=== PATIENT | female | born 1990 | race Two or more races ===

== ENCOUNTER 2020-10-03 14:24 | Outpatient (REF) | payer OTHER, SELFPAY ==
--- NOTE | ~2020-10-03 | XR_ITS ---
EXAMINATION: XR ANKLE, RIGHT CLINICAL INFORMATION: Screening right ankle and right foot prior orthopedic surgery. COMPARISON: Radiographs right ankle 03/17/2014 TECHNIQUE: AP, lateral, and mortise views of the right ankle. FINDINGS: The malleoli are intact and the ankle mortise is symmetric. There is no acute or healing fracture, dislocation, destructive process. Prior orthopedic hardware distal fibular shaft and medial malleolus are intact. No osteolysis. No periostitis. There is no visible ankle capsular effusion. The retrocalcaneal recess is preserved. Subtalar joint is unremarkable. There is posterior calcaneal spur. XR/XR ankle RT min 3V IMPRESSION: 1. No acute or healing fracture or dislocation or destructive process. 2. No interval arthropathy. Orthopedic hardware intact. 3. Small posterior calcaneal spur.
== END 2020-10-03 14:25 | disposition home or self-care (01) ==
LOC: HO.HMGCX 14:24
PROVIDERS: PCP Nurse Practitioner Family; Visit Provider Hospitalist
DX: M25.571 Pain in right ankle and joints of right foot (principal)
CPT/HCPCS: 73610

== ENCOUNTER 2020-10-19 08:09 | Outpatient (REF) | payer OTHER, SELFPAY ==
--- NOTE | ~2020-10-19 | XR_ITS ---
EXAMINATION: XR ANKLE, RIGHT CLINICAL INFORMATION: Right ankle pain. COMPARISON: 10/03/2020 and 03/17/2014. TECHNIQUE: AP, lateral, and mortise views of the right ankle. FINDINGS: There is no evidence of acute fracture or dislocation. Ankle mortise appears intact. There is edema seen within the lower leg, ankle, and foot. Plate and side screw seen in place for previous distal fibular fracture. Medial malleolar screw seen in place. Hardware is intact without evidence of loosening. Small calcaneal Achilles spur seen. XR/XR ankle RT min 3V IMPRESSION: No significant acute bony abnormality of the right ankle identified. Previous hardware from prior fractures.
== END 2020-10-19 08:10 | disposition home or self-care (01) ==
LOC: HO.HOSX 08:09
PROVIDERS: Visit Provider Physician Assistant
DX: M72.2 Plantar fascial fibromatosis (principal); M77.51 Other enthesopathy of right foot and ankle
CPT/HCPCS: 73610; 99202

== ENCOUNTER 2021-05-24 11:18 | Outpatient (REF) | payer OTHER, SELFPAY ==
--- NOTE | ~2021-05-24 | XR_ITS ---
EXAMINATION: XR FOOT, RIGHT XR FOOT, LEFT CLINICAL INFORMATION: M72.2 - Plantar fascial fibromatosis COMPARISON: Radiographs right ankle 10/19/2020 TECHNIQUE: Each foot is imaged in 3 views. There are total of 6 views. FINDINGS: Right: There is hardware in the distal fibula and medial malleolus. Hardware is intact. No osteolysis. The right foot shows no acute or healing fracture, dislocation, or destructive process. There is incidental corticated os tibiale externum adjacent to medial tarsal navicular. There is no focal joint narrowing or erosive changes. Mild hallux valgus present, approximately 20 degrees. There is small posterior calcaneal spur similar to prior radiographs. No visible plantar spur or mineralization along the plantar fascia. Left: There is no acute or healing fracture, dislocation, or destructive process. Bony mineralization is normal. There is no focal joint narrowing or erosive changes. There is borderline tiny posterior calcaneal spur. No plantar spur or mineralization along the plantar fascia. XR/XR foot LT 2V IMPRESSION: 1. Right: Posterior calcaneal spur. No plantar spurring or mineralization along plantar fascia. 2. Left: Borderline tiny posterior calcaneal spur. No plantar spurring or mineralization along plantar fascia.
--- NOTE | ~2021-05-24 | XR_ITS ---
EXAMINATION: XR FOOT, RIGHT XR FOOT, LEFT CLINICAL INFORMATION: M72.2 - Plantar fascial fibromatosis COMPARISON: Radiographs right ankle 10/19/2020 TECHNIQUE: Each foot is imaged in 3 views. There are total of 6 views. FINDINGS: Right: There is hardware in the distal fibula and medial malleolus. Hardware is intact. No osteolysis. The right foot shows no acute or healing fracture, dislocation, or destructive process. There is incidental corticated os tibiale externum adjacent to medial tarsal navicular. There is no focal joint narrowing or erosive changes. Mild hallux valgus present, approximately 20 degrees. There is small posterior calcaneal spur similar to prior radiographs. No visible plantar spur or mineralization along the plantar fascia. Left: There is no acute or healing fracture, dislocation, or destructive process. Bony mineralization is normal. There is no focal joint narrowing or erosive changes. There is borderline tiny posterior calcaneal spur. No plantar spur or mineralization along the plantar fascia. XR/XR foot RT 2V IMPRESSION: 1. Right: Posterior calcaneal spur. No plantar spurring or mineralization along plantar fascia. 2. Left: Borderline tiny posterior calcaneal spur. No plantar spurring or mineralization along plantar fascia.
[2021-05-24 14:06] LABS: MANUAL DIFF FLAG NO
[2021-05-24 14:12] LABS: Basophils Percent Auto 0.4 % (0-2); Eosinophils Absolute Auto 0.2 X10*3/uL (0.0-0.4); Eosinophils Percent Auto 1.9 % (0-4); Hematocrit 38.4 % (37.0-47.0); Hemoglobin 12.9 g/dl (12.0-16.0); Imm Gran Abs Auto 0.02 X10*3/uL (0.00-0.03); Imm Gran Pct Auto 0.2 % (0.0-0.4); Lymphocytes Absolute Auto 2.3 X10*3/uL (1.2-4.9); Mean Corpuscular HGB Conc 33.6 g/dl (31.0-35.0); Mean Corpuscular Hemoglobin 29.4 pg (27.0-33.0); Mean Corpuscular Volume 87.5 fL (80.0-98.0); Mean Platelet Volume 11.4 fL (9.4-12.3); Monocytes Absolute Auto 0.3 X10*3/uL (0.1-1.2); Monocytes Percent Auto 3.5 % (2-11); Neutrophils Absolute Auto 5.5 x10*3/uL (2.0-8.3); Platelet Count 316 X10*3/uL (160-400); Red Blood Count 4.39 X10*6/uL (4.20-5.50); Red Cell Distribution Width 12.7 % (11.0-16.0); White Blood Count 8.3 X10*3/uL (4.8-10.8)
[2021-05-24 14:29] LABS: Appearance Urine CLOUDY; Color Urine YELLOW; Glucose Urine UA NEG (NEG); Leukocyte Esterase Urine NEG (NEG); Nitrite Urine NEG (NEG); Specific Gravity - Urine 1.025 (1.005-1.025); Urine Blood NEG (NEG); Urine Ketones NEG (NEG); Urine Protein TRACE MG/DL (NEG-TRACE)
[2021-05-24 14:49] LABS: Alanine Aminotransferase 56 U/L (0-31); Albumin Level 4.6 g/dL (3.5-5.0); Alkaline Phosphatase 88 U/L (39-117); Anion Gap 14 (12-20); Aspartate Amino Transferase 25 U/L (5-31); Bilirubin Total 0.5 mg/dL (0.0-1.0); Blood Urea Nitrogen 14 mg/dL (9-16); Calcium 9.7 mg/dL (8.4-10.2); Carbon Dioxide 24 mmol/L (22-29); Chloride 106 mmol/L (96-108); Cholesterol 189 mg/dL; Estimated Glomerular Filt Rate > 60; Glucose Fasting 86 mg/dL (60-99); HDL Cholesterol 43 mg/dL; Iron 98 mcg/dL (30-160); LDL Cholesterol Calculated 126 mg/dl; Percent Iron Saturation 34 % (15-50); Potassium 4.2 mmol/L (3.3-5.1); Sodium 140 mmol/L (135-145); Total Iron Binding Capacity 291 mcg/dL (228-428); Total Protein 7.3 g/dL (6.5-8.0); Triglycerides 100 mg/dL; Unsaturated Iron Binding 193 ug/dL
[2021-05-24 14:57] LABS: Ferritin 58 ng/mL (10-122); TSH reflex Free T4 0.79 uIU/mL (0.32-4.0)
[2021-05-24 15:11] LABS: Folate 13.2 ng/mL (> or = 4.0); Vitamin B12 1055 pg/mL (200-900)
== END 2021-05-24 11:19 | disposition home or self-care (01) ==
LOC: HO.HMGCLDS 11:18
PROVIDERS: PCP Nurse Practitioner Family; Visit Provider Nurse Practitioner Family
DX: M72.2 Plantar fascial fibromatosis (principal); L65.9 Nonscarring hair loss, unspecified
CPT/HCPCS: 36415; 73620; 80053; 80061; 81003; 82607; 82728; 82746; 83540; 84443; 85025

== ENCOUNTER 2022-06-13 10:41 | Outpatient (REF) | payer OTHER, SELFPAY ==
[2022-06-13 13:57] LABS: MANUAL DIFF FLAG NO
[2022-06-13 14:01] LABS: Basophils Percent Auto 0.4 % (0-2); Eosinophils Absolute Auto 0.1 X10*3/uL (0.0-0.4); Eosinophils Percent Auto 0.9 % (0-4); Imm Gran Abs Auto 0.03 X10*3/uL (0.00-0.03); Imm Gran Pct Auto 0.3 % (0.0-0.4); Lymphocytes Absolute Auto 2.4 X10*3/uL (1.2-4.9); Lymphocytes Percent Auto 23.8 % (20-40); Mean Corpuscular HGB Conc 32.5 g/dl (31.0-35.0); Mean Corpuscular Hemoglobin 28.4 pg (27.0-33.0); Mean Corpuscular Volume 87.3 fL (80.0-98.0); Mean Platelet Volume 11.1 fL (9.4-12.3); Monocytes Absolute Auto 0.4 X10*3/uL (0.1-1.2); Monocytes Percent Auto 3.5 % (2-11); Neutrophils Absolute Auto 7.2 x10*3/uL (2.0-8.3); Neutrophils Percent Auto 71.1 % (45-73); Platelet Count 332 X10*3/uL (160-400); Red Blood Count 4.58 X10*6/uL (4.20-5.50); Red Cell Distribution Width 12.8 % (11.0-16.0); White Blood Count 10.2 X10*3/uL (4.8-10.8)
[2022-06-13 14:36] LABS: Syphilis Screen Nonreactive (Nonreactive)
[2022-06-13 14:37] LABS: Alanine Aminotransferase 36 U/L (0-31); Albumin Level 4.6 g/dL (3.5-5.0); Alkaline Phosphatase 87 U/L (39-117); Anion Gap 11 (12-20); Aspartate Amino Transferase 17 U/L (5-31); Bilirubin Total 0.6 mg/dL (0.0-1.0); Blood Urea Nitrogen 11 mg/dL (9-16); Calcium 9.5 mg/dL (8.4-10.2); Carbon Dioxide 26 mmol/L (22-29); Chloride 105 mmol/L (96-108); Cholesterol 189 mg/dL; Estimated Glomerular Filt Rate > 60; Ferritin 33 ng/mL (10-122); Glucose Fasting 87 mg/dL (60-99); HDL Cholesterol 48 mg/dL; Iron 90 mcg/dL (30-160); LDL Cholesterol Calculated 124 mg/dl; Percent Iron Saturation 31 % (15-50); Potassium 3.8 mmol/L (3.3-5.1); Sodium 138 mmol/L (135-145); TSH reflex Free T4 1.03 uIU/mL (0.32-4.0); Total Iron Binding Capacity 288 mcg/dL (228-428); Total Protein 7.5 g/dL (6.5-8.0); Triglycerides 86 mg/dL; Unsaturated Iron Binding 198 ug/dL
[2022-06-13 14:54] LABS: Folate 13.5 ng/mL (> or = 4.0); Vitamin B12 815 pg/mL (200-900)
[2022-06-13 15:48] LABS: HIV AB/AG Nonreactive (Nonreactive); HIV Num 1 0.05 S/CO (0.00-0.99)
[2022-06-13 17:30] LABS: CT PCR NOT DETECTED (Not Detect.); NG PCR NOT DETECTED (Not Detect.)
[2022-06-15 09:53] LABS: HBS Num1 > 1000.00 mIU/mL (0-7.99); HBc Num1 0.14 S/CO (0.00-0.79); HBsAGNum1 0.34 S/CO (0.00-0.99); Hepatitis B Core Antibody Nonreactive (Nonreactive); Hepatitis B Surface Antigen Negative (Negative); ~HepC Num1 0.09 S/CO (0.00-0.79); ~Hepatitis B Surface Antibody REACTIVE (Nonreactive)
[2022-06-15 09:56] LABS: Hepatitis C Ab Exposure Source NonReactive (Nonreactive)
== END 2022-06-13 10:42 | disposition home or self-care (01) ==
LOC: HO.HMGCLDS 10:41
PROVIDERS: PCP Nurse Practitioner Family; Visit Provider Nurse Practitioner Family
DX: Z00.00 Encounter for general adult medical examination without abnormal findings (principal); Z11.3 Encounter for screening for infections with a predominantly sexual mode of transmission; R42 Dizziness and giddiness; R30.0 Dysuria; R53.83 Other fatigue
CPT/HCPCS: 36415; 80053; 80061; 82607; 82728; 82746; 83540; 84443; 85025; 86780; 86803; 87491; 87591

== ENCOUNTER 2022-07-12 21:45 | Emergency (ER) | payer OTHER, SELFPAY ==
--- NOTE | ~2022-07-12 | XR_ITS ---
EXAMINATION: XR ANKLE, LEFT CLINICAL INFORMATION: Injury COMPARISON: 05/24/2021 TECHNIQUE: AP, lateral, and mortise views of the left ankle. FINDINGS: No fracture or dislocation. Ankle mortise is congruent. No ankle joint effusion. Circumferential soft tissue swelling. XR/XR ankle LT min 3V IMPRESSION: Soft tissue swelling without acute fracture or malalignment.
[2022-07-12 22:12] VITALS: BP 156/99; PULSE 91; RESP 18; TEMP 36.3; O2SAT 96; BMI 42.7
--- NOTE | 2022-07-12 22:43 | ED_ITS ---
HPI - Extremity Injury (Lower) General Chief Complaint: Extremity Injury, Lower Stated Complaint: Left ankle injury Time Seen by Provider: 07/12/22 22:41 Source: patient Mode of arrival: ambulatory Limitations: no limitations History of Present Illness HPI Narrative: While coming down the stairs patient twisted her left ankle yesterday since then complaining of pain specially on lateral malleolar increases on ambulation no other injuries Related Data Previous Rx's Medication Instructions Recorded albuterol sulfate 90 mcg/actuation 2 puff inhalation Q4-6H PRN 05/24/21 aerosol inhaler shortness of breath or wheezing #18 grams albuterol sulfate 2.5 mg/3 mL 2.5 mg (3 mL) inhalation QID PRN 06/22/21 (0.083 %) solution for nebulization shortness of breath or wheezing 90 days #180 mL cephalexin 500 mg capsule 500 mg PO TID 10 days #30 caps 05/02/22 doxycycline monohydrate 100 mg 100 mg PO BID 14 days #28 caps 06/13/22 capsule fluconazole 150 mg tablet 150 mg PO Q3D 2 doses #2 tabs 06/13/22 (Diflucan) ibuprofen 600 mg tablet 600 mg PO Q6H PRN fever or pain 07/12/22 #30 tabs Allergies Allergy/AdvReac Type Severity Reaction Status Date / Time mushroom Allergy Unknown RASH Verified 06/13/22 09:51 mushroom Allergy Unknown rash Uncoded 06/13/22 09:51 Mushrooms AdvReac Severe Swelling Uncoded 06/13/22 09:51 Review of Systems Review of Systems: Yes all other systems are reviewed and are negative PMFSH Past Medical History Medical History Migraine with aura Plantar fasciitis, bilateral Social History Social History Housing: House Patient Tobacco Use Status: Never used Tobacco e-Cigarette/Vaping Use: Never Used Second Hand Smoke Exposure: No Advance Directives: No Advance Directives Information Provided: No service: No Current occupational status: employed 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 Oriented X3. No acute distress. ENT: Pharynx normal. Oral Mucosa moist atraumatic normocephalic Neck: Normal inspection. Neck supple. No tenderness CVS: Normal heart rate and rhythm. Pulses normal. Respiratory: No respiratory distress. Equal air entry bilateral, no wheezing/rales/rhonchi Skin: Skin warm and dry. Normal skin color. Normal skin turgor. Extremities: No lower extremity edema. Left ankle: Soft tissue swelling lateral malleolus no bony deformity good range of movement Neuro: Oriented X 3. Extrem: Ankle/foot/toe images: 1. Soft tissue swelling with tenderness no deformity neurovascular intact Medical Decision Making Medical Decision Making MDM Narrative: X-ray negative for fracture patient was given an ankle Aircast and crutches ibuprofen for the pain Discharge Plan Discharge Clinical Impression: Left ankle sprain Patient Disposition: Home, Self-Care Instructions: Ankle Sprain (ED) Additional Instructions: Use crutches for ambulation, wear splint for support Ibuprofen for pain Prescriptions: New ibuprofen 600 mg tablet 600 mg PO Q6H PRN (Reason: fever or pain) Qty: 30 0RF No Action albuterol sulfate 2.5 mg /3 mL (0.083 %) solution for nebulization 2.5 mg inhalation QID PRN (Reason: shortness of breath or wheezing) 90 Days Qty: 180 0RF albuterol sulfate 90 mcg/actuation HFA aerosol inhaler 2 puff inhalation Q4-6H PRN (Reason: shortness of breath or wheezing) Qty: 18 0RF cephalexin 500 mg capsule 500 mg PO TID 10 Days Qty: 30 0RF doxycycline monohydrate 100 mg capsule 100 mg PO BID 14 Days Qty: 28 0RF fluconazole [Diflucan] 150 mg tablet 150 mg PO Q3D Qty: 2 2RF Stand Alone Forms: Work/School Release
[2022-07-12] MEDS: Ibuprofen 600 MG TABLET PO (23:05)
== END 2022-07-12 23:07 | disposition home or self-care (01) ==
PROVIDERS: Emergency Provider Internal Medicine; PCP Nurse Practitioner Family
DX: M25.572 Pain in left ankle and joints of left foot (principal); Z79.899 Other long term (current) drug therapy
CPT/HCPCS: 29515; 73610; 99283

== ENCOUNTER → 2022-09-12 15:20 | Outpatient (BNVA) | payer OTHER, SELFPAY | PROVIDERS: PCP Nurse Practitioner Family; Visit Provider Physician Assistant Surgical ==

== ENCOUNTER → 2022-09-14 08:18 | Outpatient (BNVA) | payer OTHER, SELFPAY | PROVIDERS: PCP Nurse Practitioner Family; Visit Provider Surgery | DX: E66.01 Morbid (severe) obesity due to excess calories (principal); I10 Essential (primary) hypertension; G43.109 Migraine with aura, not intractable, without status migrainosus; M72.2 Plantar fascial fibromatosis; J45.21 Mild intermittent asthma with (acute) exacerbation; Z68.41 Body mass index [BMI] 40.0-44.9, adult | CPT/HCPCS: Q3014 ==

== ENCOUNTER 2022-09-24 09:12 | Outpatient (REF) | payer OTHER, SELFPAY ==
--- NOTE | ~2022-09-24 | XR_ITS ---
EXAMINATION: XR CHEST 2 VIEWS CLINICAL INFORMATION: Morbid obesity. COMPARISON: None. TECHNIQUE: Frontal and lateral views of the chest were obtained. FINDINGS: The heart, great vessels, pulmonary vasculature and mediastinum are normal. The lungs show no focal infiltrate, effusion or pneumothorax. There is no acute osseous abnormality. XR/XR chest 2V IMPRESSION: No active cardiopulmonary disease.
[2022-09-24 09:32] LABS: MANUAL DIFF FLAG NO
--- NOTE | 2022-09-24 09:34 | ECG_ITS ---
Test Reason : e66.01 Blood Pressure : / mmHG Vent. Rate : 082 BPM Atrial Rate : 082 BPM P-R Int : 168 ms QRS Dur : 088 ms QT Int : 390 ms P-R-T Axes : 042 031 007 degrees QTc Int : 455 ms Normal sinus rhythm Normal ECG When compared with ECG of 16-MAR-2002 09:22, No significant changes seen Referred By: Johnathon Bower Electronically Signed By:Clemente Riojas
[2022-09-24 09:59] LABS: Basophils Percent Auto 0.4 % (0-2); Eosinophils Absolute Auto 0.1 X10*3/uL (0.0-0.4); Eosinophils Percent Auto 1.3 % (0-4); Hematocrit 37.6 % (37.0-47.0); Hemoglobin 12.7 g/dl (12.0-16.0); Imm Gran Abs Auto 0.02 X10*3/uL (0.00-0.03); Imm Gran Pct Auto 0.3 % (0.0-0.4); Lymphocytes Percent Auto 29.5 % (20-40); Mean Corpuscular HGB Conc 33.8 g/dl (31.0-35.0); Mean Corpuscular Volume 85.8 fL (80.0-98.0); Monocytes Absolute Auto 0.2 X10*3/uL (0.1-1.2); Monocytes Percent Auto 3.5 % (2-11); Neutrophils Absolute Auto 4.4 x10*3/uL (2.0-8.3); Platelet Count 316 X10*3/uL (160-400); Red Blood Count 4.38 X10*6/uL (4.20-5.50); Red Cell Distribution Width 12.8 % (11.0-16.0); White Blood Count 6.8 X10*3/uL (4.8-10.8)
[2022-09-24 10:08] LABS: Estimated Average Glucose 108 mg/dL; Hemoglobin A1c % 5.4 %
[2022-09-24 10:36] LABS: Alanine Aminotransferase 44 U/L (0-31); Albumin Level 4.6 g/dL (3.5-5.0); Alkaline Phosphatase 76 U/L (39-117); Anion Gap 13 (12-20); Aspartate Amino Transferase 19 U/L (5-31); Bilirubin Total 0.7 mg/dL (0.0-1.0); Blood Urea Nitrogen 13 mg/dL (9-16); C Reactive Protein 0.22 mg/dL (< or = 0.50); Calcium 9.6 mg/dL (8.4-10.2); Carbon Dioxide 24 mmol/L (22-29); Chloride 107 mmol/L (96-108); Cholesterol 172 mg/dL; Estimated Glomerular Filt Rate > 60; Glucose Random 92 mg/dL (60-115); HDL Cholesterol 42 mg/dL; Iron 75 mcg/dL (30-160); LDL Cholesterol Calculated 119 mg/dl; Percent Iron Saturation 28 % (15-50); Potassium 3.7 mmol/L (3.3-5.1); Sodium 140 mmol/L (135-145); Total Iron Binding Capacity 269 mcg/dL (228-428); Total Protein 7.5 g/dL (6.5-8.0); Triglycerides 56 mg/dL; Unsaturated Iron Binding 194 ug/dL
[2022-09-24 11:05] LABS: Ferritin 50 ng/mL (10-122); Folate 12.5 ng/mL (> or = 4.0); Insulin 10 uU/mL (2-29); TSH reflex Free T4 1.56 uIU/mL (0.32-4.0); Vitamin B12 1164 pg/mL (200-900); Vitamin D 25-OH Total 10.5 ng/mL (>30)
[2022-09-26 13:23] LABS: Calcium (PTHI) 9.8 mg/dL (8.6-10.2); PTHI 37 pg/mL (16-77)
[2022-09-27 06:13] LABS: Zinc 64 mcg/dL (60-130)
[2022-09-29 17:13] LABS: Vitamin A 42 mcg/dL (38-98)
[2022-10-04 17:14] LABS: Vitamin B1 <6 nmol/L (8-30)
== END 2022-09-24 09:13 | disposition home or self-care (01) ==
LOC: HO.LAB 09:12
PROVIDERS: PCP Nurse Practitioner Family; Visit Provider Surgery
DX: E66.01 Morbid (severe) obesity due to excess calories (principal); J45.901 Unspecified asthma with (acute) exacerbation; I10 Essential (primary) hypertension
CPT/HCPCS: 36415; 71046; 80053; 80061; 82306; 82607; 82728; 82746; 83036; 83525; 83540; 83970; 84425; 84443; 84590; 84630; 85025; 86140; 93005; 99211

== ENCOUNTER 2022-09-24 10:37 | Outpatient (REF) | payer OTHER, SELFPAY ==
[2022-09-27 11:58] LABS: H Pylori Breath Test Negative (Negative)
== END 2022-09-24 10:38 | disposition home or self-care (01) ==
LOC: HO.LNP 10:37
PROVIDERS: Visit Provider Surgery
DX: E66.01 Morbid (severe) obesity due to excess calories (principal); J45.901 Unspecified asthma with (acute) exacerbation; I10 Essential (primary) hypertension
CPT/HCPCS: 83013

== ENCOUNTER → 2022-10-02 12:30 | Outpatient (BNVA) | payer OTHER, SELFPAY | PROVIDERS: PCP Nurse Practitioner Family; Visit Provider Counselor Mental Health ==

== ENCOUNTER → 2022-10-04 15:16 | Outpatient (BNVA) | payer OTHER, SELFPAY | PROVIDERS: PCP Nurse Practitioner Family; Visit Provider Dietitian, Registered | DX: E66.01 Morbid (severe) obesity due to excess calories (principal); Z71.3 Dietary counseling and surveillance | CPT/HCPCS: 97802 ==

== ENCOUNTER → 2022-10-12 08:01 | Outpatient (BNVA) | payer OTHER, SELFPAY | PROVIDERS: PCP Nurse Practitioner Family; Visit Provider Surgery | DX: E66.01 Morbid (severe) obesity due to excess calories (principal); Z68.41 Body mass index [BMI] 40.0-44.9, adult | CPT/HCPCS: Q3014 ==

== ENCOUNTER → 2022-11-01 11:47 | Outpatient (BNVA) | payer OTHER, SELFPAY | PROVIDERS: PCP Nurse Practitioner Family; Visit Provider Dietitian, Registered | DX: E66.01 Morbid (severe) obesity due to excess calories (principal); Z71.3 Dietary counseling and surveillance | CPT/HCPCS: 97803 ==

== ENCOUNTER → 2022-11-07 08:08 | Outpatient (BNVA) | payer OTHER, SELFPAY | PROVIDERS: PCP Nurse Practitioner Family; Visit Provider Surgery | DX: E66.01 Morbid (severe) obesity due to excess calories (principal); Z68.41 Body mass index [BMI] 40.0-44.9, adult | CPT/HCPCS: Q3014 ==

== ENCOUNTER → 2022-12-07 08:58 | Outpatient (BNVA) | payer OTHER, SELFPAY | PROVIDERS: PCP Nurse Practitioner Family; Visit Provider Surgery | DX: E66.01 Morbid (severe) obesity due to excess calories (principal); Z68.41 Body mass index [BMI] 40.0-44.9, adult | CPT/HCPCS: Q3014 ==

== ENCOUNTER 2022-12-12 07:17 | Outpatient (REF) | payer OTHER, SELFPAY ==
--- NOTE | ~2022-12-12 | FL_ITS ---
EXAMINATION: XR FLUOROSCOPY UPPER GI WITH AIR CLINICAL INFORMATION: Obesity COMPARISON: None available. TECHNIQUE: Upper GI was performed using thin and thick barium and effervescent granules. FINDINGS: Esophageal motility is normal. There is gastroesophageal reflux. No hernia. The stomach and duodenum are normal. No fold thickening, mass, ulcer or stricture. FLUOROSCOPY TIME: 0.2 minutes DOSE AREA PRODUCT: 3 ervin per centimeter squared. Total dose 12 mgy. 17 saved fluoroscopic images. FL/FL upper GI w air IMPRESSION: Gastroesophageal reflux otherwise unremarkable examination.
--- NOTE | ~2022-12-12 | US_ITS ---
EXAMINATION: US COMPLETE ABDOMEN WITH LIVER ELASTOGRAPHY CLINICAL INFORMATION: Obesity COMPARISON: Previous ultrasound August [address] of the abdomen and pelvis August 2016 TECHNIQUE: Real-time imaging of the abdominal viscera. Noninvasive ultrasound liver fibrosis assessment is performed using Louis ElastPQ point quantification shear wave elastography (2D-SWE) with a C5-2 MHz transducer. Multiple elastography samples are obtained. FINDINGS: PANCREAS: Normal. ABDOMINAL AORTA: The proximal, middle, and distal aortic segments are normal in caliber. INFERIOR VENA CAVA: Visualized portions are normal. LIVER: The liver is slightly enlarged. Liver echotexture is increased probably representing fatty infiltration. The liver is normal in contour. No focal liver lesion. No biliary duct dilatation. The right lobe measures 21 cm in length. The left lobe measures 11 cm in length. Portal flow is normal/hepatopedal Shear wave liver elastography median stiffness is 1.4 m/s (reference: normal median stiffness is 1.3 m/s or less). IQR/median stiffness to assess sampling precision is 0.15 (reference: good quality data set is IQR/median stiffness of 0.15 or less). GALLBLADDER: Normal. The gallbladder is physiologically distended without evidence of stones, sludge, polyps, wall thickening or pericholecystic fluid. COMMON BILE DUCT: Normal in caliber measuring 0.4 cm in diameter. RIGHT KIDNEY: Normal. No hydronephrosis. No renal calculi or focal parenchymal lesions. The kidney measures 11.4 cm in maximum dimension. LEFT KIDNEY: 3 x 4 mm echogenic focus in the upper pole. This is new from previous ultrasound and no corresponding abnormality seen on previous CT. This is of uncertain etiology. No hydronephrosis. The kidney measures 12.3 cm in maximum dimension. SPLEEN: Normal. The spleen measures 12.5 cm in maximum dimension. FREE FLUID: None. US/US abdomen comp w elastography IMPRESSION: 1. Impression: Enlarged echogenic liver probably representing fatty infiltration. 2. Liver elastography: Adequate liver sampling. In the absence of other known clinical signs, rules out compensated advanced chronic liver disease. REFERENCE: Society of Radiologists in Ultrasound Liver Stiffness Thresholds (2020): LIVER STIFFNESS THRESHOLDS: *Liver Stiffness equal or less than 1.3 m/s: High probability of being normal. *Liver Stiffness less than 1.7 m/s: In the absence of other known clinical signs, rules out compensated advanced chronic liver disease. *Liver Stiffness 1.7-2.1 m/s: Suggestive of compensated advanced chronic liver disease but need further test for confirmation. *Liver Stiffness over 2.1 m/s: Rules in compensated advanced chronic liver disease. *Liver Stiffness over 2.4 m/s: Suggestive of clinically significant portal hypertension. QUALITY OF DATA SET: *IQR/Median value equal or less than 0.15 implies a quality data set. *IQR/Median value over 0.15 implies a poor quality data set. SIGNIFICANT CHANGE FROM PRIOR EXAM: Significant change if liver stiffness measurement is 10% or greater from prior exam. OTHER CONSIDERATIONS: The stage of liver fibrosis may be overestimated in the setting of acute hepatitis, liver inflammation, elevated liver function tests, hepatic vascular congestion, obstructive cholestasis, non-fasting state, and infiltrative diseases such as amyloidosis and lymphoma. In some patients with NAFLD, the liver stiffness thresholds for compensated advanced chronic liver disease may be lower. In causes other than viral hepatitis and NAFLD, liver stiffness thresholds are not well established.
== END 2022-12-12 07:18 | disposition home or self-care (01) ==
LOC: HO.US 07:17
PROVIDERS: PCP Nurse Practitioner Family; Visit Provider Surgery
DX: E66.01 Morbid (severe) obesity due to excess calories (principal); J45.901 Unspecified asthma with (acute) exacerbation; I10 Essential (primary) hypertension
CPT/HCPCS: 74246; 76705; 76981

== ENCOUNTER → 2022-12-14 13:00 | Outpatient (BNVA) | payer OTHER, SELFPAY | PROVIDERS: PCP Nurse Practitioner Family; Visit Provider Surgery | DX: E66.01 Morbid (severe) obesity due to excess calories (principal); Z68.41 Body mass index [BMI] 40.0-44.9, adult | CPT/HCPCS: Q3014 ==

== ENCOUNTER → 2022-12-19 12:39 | Outpatient (BNVA) | payer OTHER, SELFPAY | PROVIDERS: PCP Nurse Practitioner Family; Visit Provider Surgery ==

== ENCOUNTER 2022-12-21 08:04 | Inpatient (IN) | payer OTHER, SELFPAY ==
[2022-12-15 09:00] LABS: MANUAL DIFF FLAG NO
[2022-12-15 09:33] LABS: Basophils Percent Auto 0.3 % (0-2); Eosinophils Absolute Auto 0.1 X10*3/uL (0.0-0.4); Eosinophils Percent Auto 1.1 % (0-4); Hematocrit 38.1 % (37.0-47.0); Hemoglobin 12.9 g/dl (12.0-16.0); Imm Gran Abs Auto 0.02 X10*3/uL (0.00-0.03); Imm Gran Pct Auto 0.2 % (0.0-0.4); Mean Corpuscular HGB Conc 33.9 g/dl (31.0-35.0); Mean Corpuscular Hemoglobin 29.5 pg (27.0-33.0); Mean Platelet Volume 11.2 fL (9.4-12.3); Monocytes Absolute Auto 0.3 X10*3/uL (0.1-1.2); Monocytes Percent Auto 3.8 % (2-11); Neutrophils Absolute Auto 6.3 x10*3/uL (2.0-8.3); Neutrophils Percent Auto 71.6 % (45-73); Platelet Count 280 X10*3/uL (160-400); Red Blood Count 4.38 X10*6/uL (4.20-5.50); Red Cell Distribution Width 12.7 % (11.0-16.0); White Blood Count 8.8 X10*3/uL (4.8-10.8)
[2022-12-15 09:42] LABS: INTERNATIONAL NORM RATIO 1.2 (0.9-1.1)
[2022-12-15 09:43] LABS: Estimated Average Glucose 103 mg/dL; Hemoglobin A1c % 5.2 %
[2022-12-15 09:44] LABS: Partial Thromboplastin Time 28.8 SEC (26.0-36.4)
[2022-12-15 10:18] LABS: Alanine Aminotransferase 24 U/L (0-31); Albumin Level 4.3 g/dL (3.5-5.0); Alkaline Phosphatase 67 U/L (39-117); Anion Gap 11 (12-20); Aspartate Amino Transferase 15 U/L (5-31); Bilirubin Total 0.7 mg/dL (0.0-1.0); Blood Urea Nitrogen 11 mg/dL (9-16); C Reactive Protein 0.23 mg/dL (< or = 0.50); Calcium 9.6 mg/dL (8.4-10.2); Carbon Dioxide 25 mmol/L (22-29); Chloride 107 mmol/L (96-108); Cholesterol 164 mg/dL; Estimated Glomerular Filt Rate > 60; Glucose Random 100 mg/dL (60-115); HDL Cholesterol 41 mg/dL; LDL Cholesterol Calculated 113 mg/dl; Potassium 3.7 mmol/L (3.3-5.1); Sodium 139 mmol/L (135-145); Total Protein 7.6 g/dL (6.5-8.0); Triglycerides 53 mg/dL
[2022-12-15 10:39] LABS: TSH reflex Free T4 1.04 uIU/mL (0.32-4.0)
[2022-12-15 10:55] LABS: Insulin 12 uU/mL (2-29)
--- NOTE | 2022-12-15 20:24 | MHC.SHP ---
Pre-Procedural Eval Section A Date of Service: 12/15/22 The patient is an INPATIENT: Yes The History & Physical has been completed within 30 days and I have reviewed it.: Yes Section B Chief Complaint: obesity Relevant Family History (Specify if Yes): No Relevant Social History: None Present Medications: None Medical History: No relevant PMH History of Previous Operations: No relevant previous surgery Allergies: Allergies Allergy/AdvReac Type Severity Reaction Status Date / Time mushroom Allergy Unknown RASH Verified 12/14/22 22:31 mushroom Allergy Unknown rash Uncoded 12/14/22 22:31 Mushrooms AdvReac Severe Swelling Uncoded 12/14/22 22:31 Review of Systems Sugical H&P ROS: Negative: Constitution, Cardiovascular, Respiratory, Neurological, Psychiatric, Hem-Onc, Allergic/Immunologic, Gastrointestinal, Genitourinary, Musculoskeletal, Integumentary, Endocrine and Eyes/Ears/Nose/Throat Exam Surgical H&P Exam: Normal: HEENT, Normal: Heart, Normal: Lungs, Normal: Extremities, Normal: Abdomen, Normal: Skin and Normal: Neurological Plan Diagnosis/Plan: Unchanged I have reviewed the history and physical and performed a pertinent physical examination on my patient. No changes have occurred unless specified. Time Spent With Patient Time: Total time managing care of this patient today ____ minutes.
[2022-12-18 11:00] VITALS: BMI 39.4
--- NOTE | 2022-12-20 09:17 | P.CONAN_ITS ---
HPI - Anesthesia Eval Consult details Narrative: 32yo F for Gastrectomy Sleeve,EGD,Poss Diaphragmatic Hernia,Poss Ventral Hernia,Poss Open, PMFSH Active Problems Active Problems: All Active Problems (Updated 12/18/22 @ 11:00 by Andreina Barry RN) Asthma exacerbation (Acute) Acute frontal sinusitis (Acute) Encounter for pre-employment examination (Acute) Right ankle pain (Acute) Plantar fasciitis of right foot (Acute) Tendonitis of ankle, right (Acute) Hair loss (Acute) HTN (hypertension) (Acute) Obesity (Acute) Physical exam (Acute) Dizziness (Acute) Dysuria (Acute) STI (sexually transmitted infection) (Acute) Vitamin D deficiency (Acute) Mood disorder due to known physiological condition, unspecified (Acute) Vitamin B1 deficiency (Acute) Hearing loss (Acute) Morbid obesity (Acute) Migraine with aura (Acute) Plantar fasciitis, bilateral (Acute) Past Medical History Medical History (Updated 12/18/22 @ 11:00 by Andreina Barry RN) Arthritis Asthma HTN (hypertension) Migraine with aura Morbid obesity Plantar fasciitis, bilateral Family History Family History (Updated 09/12/22 @ 15:30 by MIRANDA Mack) Mother Stroke Hypertension Lupus Father Heart disease Brother Cancer Son No problems noted. Son No problems noted. Son No problems noted. Surgical History Surgical History (Updated 12/18/22 @ 10:39 by Andreina Barry RN) H/O colonoscopy History of ear surgery History of surgery on lower extremity Hx of section Social History Social History (Updated 09/12/22 @ 15:28 by MIRANDA Mack) Housing: House Are you a primary wound care physician to a significant other at home: Yes (minor children) Do you presently have visiting nurse or other home services: No Alcohol intake: never Patient Tobacco Use Status: Current someday Tobacco user Tobacco use type: Smokeless Tobacco Years Smoked: currently vaping-advised to refrain pre-op e-Cigarette/Vaping Use: Never Used Second Hand Smoke Exposure: No Use of substances other than those prescribed or required for medical reasons: No Have you been hit, kicked, punched, or otherwise hurt by someone within the past year? 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8 Eos % (Auto) 1.1 Baso % (Auto) 0.3 Lymph # (Auto) 2.0 [place] # (Auto) 0.3 Eos # (Auto) 0.1 Baso # (Auto) 0.0 Abs Immat Gran (auto) 0.02 Absolute Neuts (auto) 6.3 Absolute Nucleated RBC 0.000 Nucleated RBC % (auto) 0.0 PT 14.0 H INR 1.2 H APTT 28.8 Sodium 139 Potassium 3.7 Chloride 107 Carbon Dioxide 25 Anion Gap 11 L BUN 11 Creatinine 0.65 Estim Creat Clear Calc TNP Estimated GFR > 60 Random Glucose 100 Estimat Average Glucose Hemoglobin A1c % Insulin Level 12 Calcium 9.6 Total Bilirubin 0.7 AST 15 ALT 24 Alkaline Phosphatase 67 C-Reactive Protein 0.23 Total Protein 7.6 Albumin 4.3 Triglycerides 53 Cholesterol 164 LDL Cholesterol, Calc 113 HDL Cholesterol 41 TSH 1.04 Blood Type Antibody Screen 12/15/22 12/15/22 08:58 09:00 WBC RBC Hgb Hct MCV MCH MCHC RDW Plt Count MPV Immature Gran % (Auto) Neut % (Auto) Lymph % (Auto) [place] % (Auto) Eos % (Auto) Baso % (Auto) Lymph # (Auto) [place] # (Auto) Eos # (Auto) Baso # (Auto) Abs Immat Gran (auto) Absolute Neuts (auto) Absolute Nucleated RBC Nucleated RBC % (auto) PT INR APTT Sodium Potassium Chloride Carbon Dioxide Anion Gap BUN Creatinine Estim Creat Clear Calc Estimated GFR Random Glucose Estimat Average Glucose 103 Hemoglobin A1c % 5.2 Insulin Level Calcium Total Bilirubin AST ALT Alkaline Phosphatase C-Reactive Protein Total Protein Albumin Triglycerides Cholesterol LDL Cholesterol, Calc HDL Cholesterol TSH Blood Type B Positive Antibody Screen NEGATIVE Narrative Narrative: EKG 09/2022 Vent. Rate : 082 BPM ? ? Atrial Rate : 082 BPM ?? P-R Int : 168 ms? QRS Dur : 088 ms ? ? QT Int : 390 ms ? ? ? P-R-T Axes : 042 031 007 degrees ?? QTc Int : 455 ms ? Normal sinus rhythm Normal ECG When compared with ECG of 16-MAR-2002 09:22, No significant changes seen ? Assessment and Plan Assessment Anesthesia Assessment: Chart Reviewed
[2022-12-20 09:36] LABS: COVID-19 Test Negative (Negative); IDNOW Serial# 6674DD1D
[2022-12-21] VITALS (12 sets, daily range): BP systolic 123–175; BP diastolic 73–99; PULSE 81–102; RESP 17–22; TEMP 36.1–36.9; O2SAT 96–100; BMI 40.9
--- NOTE | 2022-12-21 08:30 | PHA.MEDREC ---
Pharmacy Consult ? Medication Reconciliation Pharmacy has completed the medication reconciliation. Completed by RN reviewed by pharmacy Ramón
[2022-12-21 08:32] LABS: Urine Pregnancy NEGATIVE (NEGATIVE)
[2022-12-21 08:33] LABS: UPreg QC Valid YES
--- NOTE | 2022-12-21 08:46 | HO.ANESPROP2 ---
[facility] Active Problems Active Problems: All Active Problems (Updated 12/18/22 @ 11:00 by Andreina Barry RN) Asthma exacerbation (Acute) Acute frontal sinusitis (Acute) Encounter for pre-employment examination (Acute) Right ankle pain (Acute) Plantar fasciitis of right foot (Acute) Tendonitis of ankle, right (Acute) Hair loss (Acute) HTN (hypertension) (Acute) Obesity (Acute) Physical exam (Acute) Dizziness (Acute) Dysuria (Acute) STI (sexually transmitted infection) (Acute) Vitamin D deficiency (Acute) Mood disorder due to known physiological condition, unspecified (Acute) Vitamin B1 deficiency (Acute) Hearing loss (Acute) Morbid obesity (Acute) Migraine with aura (Acute) Plantar fasciitis, bilateral (Acute) Past Medical History Medical History Arthritis Asthma HTN (hypertension) Migraine with aura Morbid obesity Plantar fasciitis, bilateral Family History Family History Mother Stroke Hypertension Lupus Father Heart disease Brother Cancer Son No problems noted. Son No problems noted. Son No problems noted. Family history of problems with anesthesia: No Surgical History Surgical History H/O colonoscopy History of ear surgery History of surgery on lower extremity Hx of section History of Problems with Anesthesia: No Social History Social History Housing: House Are you a primary primary care nurse to a significant other at home: Yes (minor children) Do you presently have visiting nurse or other home services: No Alcohol intake: never Patient Tobacco Use Status: Current someday Tobacco user Tobacco use type: Smokeless Tobacco Years Smoked: currently vaping-advised to refrain pre-op e-Cigarette/Vaping Use: Never Used Second Hand Smoke Exposure: No Use of substances other than those prescribed or required for medical reasons: No Have you been hit, kicked, punched, or otherwise hurt by someone within the past year? 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 Cognitive needs: No Hearing needs: No Vision needs: No Meds Allergies Allergy/AdvReac Type Severity Reaction Status Date / Time mushroom Allergy Intermediate rash/swelli Verified 12/18/22 10:34 ng Active Medications: Current Medications Albuterol Sulfate (Albuterol Sulfate (0.083%) 2.5 Mg/3 Ml Vial.Neb) 2.5 mg INHALE ONCE PRN PRN Reason: Shortness of Breath/Wheezing Lactated Ringer's (Lr) 1,000 mls @ 999 mls/hr IV .Q1H1M SOFIYA Stop: 12/21/22 10:15 Lactated Ringer's (Lr) 1,000 mls @ 100 mls/hr IVCONT .Q10H SOFIYA Acetaminophen (Ofirmev) 1,000 mg in 100 mls @ 400 mls/hr IV PREOP ONE Stop: 12/21/22 08:58 Exam Exam Date and Time: December 21, 2022 0846 Height,Weight and Vital Signs: Height 5 ft 6 in Weight 110.677 kg Last Vital Signs Temp 98 F 12/21/22 08:32 Pulse 100 12/21/22 08:32 Resp 20 12/21/22 08:32 BP 135/78 12/21/22 08:32 O2 Del Method Room Air 12/21/22 08:32 Pertinent Lab Results Pertinent Lab Results: Laboratory Tests 12/15/22 12/15/22 12/15/22 08:58 08:58 08:58 WBC 8.8 RBC 4.38 Hgb 12.9 Hct 38.1 MCV 87.0 MCH 29.5 MCHC 33.9 RDW 12.7 Plt Count 280 MPV 11.2 Immature Gran % (Auto) 0.2 Neut % (Auto) 71.6 Lymph % (Auto) 23.0 Walker % (Auto) 3.8 Eos % (Auto) 1.1 Baso % (Auto) 0.3 Lymph # (Auto) 2.0 Walker # (Auto) 0.3 Eos # (Auto) 0.1 Baso # (Auto) 0.0 Abs Immat Gran (auto) 0.02 Absolute Neuts (auto) 6.3 Absolute Nucleated RBC 0.000 Nucleated RBC % (auto) 0.0 PT 14.0 H INR 1.2 H APTT 28.8 Sodium 139 Potassium 3.7 Chloride 107 Carbon Dioxide 25 Anion Gap 11 L BUN 11 Creatinine 0.65 Estim Creat Clear Calc TNP Estimated GFR > 60 Random Glucose 100 Estimat Average Glucose Hemoglobin A1c % Insulin Level 12 Calcium 9.6 Total Bilirubin 0.7 AST 15 ALT 24 Alkaline Phosphatase 67 C-Reactive Protein 0.23 Total Protein 7.6 Albumin 4.3 Triglycerides 53 Cholesterol 164 LDL Cholesterol, Calc 113 HDL Cholesterol 41 TSH 1.04 Urine Test COVID-19 (ALESSANDRO) COVID-19 [employer] Blood Type Antibody Screen 12/15/22 12/15/22 12/20/22 08:58 09:00 09:10 WBC RBC Hgb Hct MCV MCH MCHC RDW Plt Count MPV Immature Gran % (Auto) Neut % (Auto) Lymph % (Auto) Walker % (Auto) Eos % (Auto) Baso % (Auto) Lymph # (Auto) Walker # (Auto) Eos # (Auto) Baso # (Auto) Abs Immat Gran (auto) Absolute Neuts (auto) Absolute Nucleated RBC Nucleated RBC % (auto) PT INR APTT Sodium Potassium Chloride Carbon Dioxide Anion Gap BUN Creatinine Estim Creat Clear Calc Estimated GFR Random Glucose Estimat Average Glucose 103 Hemoglobin A1c % 5.2 Insulin Level Calcium Total Bilirubin AST ALT Alkaline Phosphatase C-Reactive Protein Total Protein Albumin Triglycerides Cholesterol LDL Cholesterol, Calc HDL Cholesterol TSH Urine Test COVID-19 (ALESSANDRO) Negative COVID-19 [employer] See Note Blood Type B Positive Antibody Screen NEGATIVE 12/21/22 08:10 WBC RBC Hgb Hct MCV MCH MCHC RDW Plt Count MPV Immature Gran % (Auto) Neut % (Auto) Lymph % (Auto) Walker % (Auto) Eos % (Auto) Baso % (Auto) Lymph # (Auto) Walker # (Auto) Eos # (Auto) Baso # (Auto) Abs Immat Gran (auto) Absolute Neuts (auto) Absolute Nucleated RBC Nucleated RBC % (auto) PT INR APTT Sodium Potassium Chloride Carbon Dioxide Anion Gap BUN Creatinine Estim Creat Clear Calc Estimated GFR Random Glucose Estimat Average Glucose Hemoglobin A1c % Insulin Level Calcium Total Bilirubin AST ALT Alkaline Phosphatase C-Reactive Protein Total Protein Albumin Triglycerides Cholesterol LDL Cholesterol, Calc HDL Cholesterol TSH Urine Test NEGATIVE COVID-19 (ALESSANDRO) COVID-19 [employer] Blood Type Antibody Screen Airway Mallampati Class: I TM Dist: >3cm Neck ROM: Full Loose/Missing/Broken Teeth: No Heart: RRR Lungs: CTA Assessment and Plan Assessment Anesthesia Assessment: Anesthesia Plan Discussed and Chart Reviewed Final Anesthetic Review Family History of Problems with Anesthesia: No History of Problems with Anesthesia: No NPO: Yes ASA Class: II Final Preanesthetic Review: Meds/Allgs Chart Reviewed, Consent Obtained/Reviewed and Anes Risks/Benef Reviewed Patient Risk: Low Procedure Risk: Intermediate Anesthetic Plan Anesthetic Plan: GA Disposition: Standard PACU
[2022-12-21] MEDS: Lactated Ringers 1,000 ML 100 ML IVCONT ×2 (08:49→15:25)
[2022-12-21] MEDS: Lactated Ringers 1,000 ML 999 ML IV (08:49)
[2022-12-21] MEDS: Aprepitant 32 MG/4.4 ML VIAL IVPUSH (08:50)
--- NOTE | 2022-12-21 10:23 | PC.NURSE ---
1000mg bolus given to patient
--- NOTE | 2022-12-21 10:27 | P.BOP_ITS ---
Brief Operative Note Date of Service: 12/21/22 Pre-op diagnosis: Morbid obesity with comorbidities (see below) Post-op diagnosis: same Procedure: INITIAL PATIENT BMI ON PRESENTATION AT OUR OFFICE: 43.1 kg/m2 LAST BMI BEFORE SURGERY: 40.5 kg/m2 COMORBIDITIES: hypertension, asthma, migraines, hip/back pain, liver steatosis, GERD ?The patient presented to the Weight Management Program with significant obesity that was negatively impacting the patient's comorbidities as listed above.? The program is a phased program with a special focus on preoperative medical weight management to promote substantial weight loss and prepare the patients for the second phase of the program: bariatric surgery. The patient participated in an intensive weekly lifestyle ?intervention and exercise program during which the patient ?has lost between the initial office visit and the last preoperative visit 28.4 lbs, or 10.62% of initial actual body weight. It was deemed appropriate for the patient to now have bariatric surgery. In light of the current Covid-19 pandemic and the well documented strong association of obesity and increased risk of worse outcomes if infected with Covid-19 (REFERENCES: https://pubmed.ncbi.nlm.nih.gov/25084583/ ,? https://pubmed.ncbi.nlm.nih.gov/47250966/ ), any delay in undergoing bariatric surgery may lead to the patient's worsening health condition and increased?risk of more severe Covid-19 disease if infected. In addition a recent?study from [facility] published in [employer] on 06/19/2021 ([id number]) found that, among patients with obesity, substantial weight loss achieved with surgery was associated with improved outcomes of COVID-19 infection. The findings suggest that obesity can be a modifiable risk factor for the severity of COVID-19 infection. In addition, the patient met the BMI-criteria for bariatric surgery based on the BMI on initial presentation. The patient should not be penalized for achieving such weight loss because ?it is not sustainable long-term without surgical intervention and it was achieved in preparation for bariatric surgery ?under my direction and based on my published research ([email or web address]).[email or web address] and? https://www.soard.org/article/[email or web address](64)28130-X/pdf ) ?that a 10% preope rative weight loss improves long-term weight loss after surgery and reduces perioperative complications.? Insurance carriers such as [facility] have endorsed my recommendations ?and have included in their policies criteria to include a 10% preoperative weight loss requirement. PROCEDURE: Esophago-gastroscopy, laparoscopic sleeve gastrectomy and laparoscopic gastropexy INDICATIONS: This is a 32 year-old female who was electively scheduled for laparoscopic, possibly open sleeve gastrectomy. The risks and complications of the procedure were discussed with the patient in advance, particularly the possi bility of ; pulmonary embolism; staple line leak; bleeding; GERD; cardiac, pulmonary, or renal complications; as well as long-term problems such as insufficient weight loss, vitamin deficiency, strictures, or ulcers. The patient understood all the risks, and was in agreement to proceed with surgery. DESCRIPTION OF PROCEDURE: After informed consent was obtained from the patient, the patient was given preoperative antibiotics, and was transferred to the operating room. After successful induction of general anesthesia, pneumatic compression devices were placed on both lower extremities. An upper endoscopy was performed next. The oropharynx and esophagus appeared to be within normal limits. There was no diaphragmatic hernia present consistent with the findings of the preoperative upper GI. The stomach was entered. Then after all fluid and air were suctioned and the stomach was fully decompressed, the scope was withdrawn and secured in the mid esophagus. The patient was then prepped and draped in the usual sterile manner, and abdominal access was established at the right upper quadrant with the Jorge technique. A 12 mm blunt port was inserted, and the abdomen was insufflated with CO2 to a pressure of 15 mmHg. Under direct visualization, additional ports were placed, specifically two 5 mm Versi-step ports to the left upper quadrant, and a 5 mm Versi-Step port to the right upper quadrant. 1% lidocaine plain was used to infiltrate all port sites as well as all fascia defects. Following that, the patient was placed in a steep reverse Trendelenburg position. An additional 5 mm port was placed to the right flank for the Mediflex retractor that was used to retract the left lobe of the liver. The gastro-esophageal fat pad was opened with the ultrasonic device (Thunderbeat , Olympus) and the anterior esophagus and hiatus were exposed. The angle of His was opened with the ultrasonic device the fundus of the stomach from any diaphragmatic and splenic attachments. I then opened the gastrocolic ligament between the transverse colon and the greater curvature of the stomach with the ultrasonic device to enter the lesser sac and facilitate the ligation of the short gastric vessels. I started at a mid-point along the greater curvature and using the Thunderbeat, all short gastric vessels were divided all the way to the angle of His until the left pernell was completely dissected at its entirety. I then divided the gastro-colic ligament distally to a distance of about 3-4 cm proximal to the pylorus. The stomach was then divided transversely with one Endo RAVEN-45 purple and four RAVEN-60 articulating purple loads using the [employer] stapler and loads. Every effort was made that the gastric sleeve had a tubular shape and an even caliber throughout. Once the sleeve resection was completed, the staple line of the gastric sleeve was reinforced with Hemoclips. The resected stomach was retrieved without difficulty from the Jorge port. A gastropexy was then performed in order to prevent postoperative GERD and partial gastric volvulus. Several interrupted 2.0 Surgidac sutures were placed between the sleeve's staple line and the previously divided greater omentum and gastro-colic ligament using the Endo-Stitch device. ?An upper endoscopy was performed. There was no narrowing at the GE junction. The scope was easily advanced all the way to the pylorus which was clearly visualized. There was no narrowing anywhere and the sleeve's caliber was even throughout. The sleeve's staple line was inspected and there was no evidence of ischemia, bleeding or dehiscence. At that point the gastroscope was withdrawn from the patient?s mouth while we were decompressing the bowel and the stomach from any remaining air. I looked into the lesser sac to see how the sleeve was situating and it was situating well. There was no bleeding from the staple line, spleen, or short gastric vessels. The Mediflex retractor was removed, and the undersurface of the liver was inspected and there was no bleeding. The patient was placed in supine position. I closed the fascial defect of the 12 mm port site with a figure of eight #1 Polysorb suture. Then 30 cc Ropivacaine plain with 10 mg of Dexamethasone were used to infiltrate the fascial closure as well as all skin incisions. At this point, the abdomen was deflated, all ports were removed under direct vision, and no bleeding was noted from any of the port sites. The skin incisions were irrigated with saline and were closed with 4-0 absorbable monofilament sutures. Steri-Strips and OpSites were used to cover all incisions. The patient was extubated and was transferred in stable condition to the recovery room for further care. I was present and performed all horton parts of the procedure. Mr. Rg was the first helper. There were no residents to assist with this case. Salomón Bower MD, PhD, FACS Surgeon: Johnathon Bower MD Anesthesia: GETA, local and other (TAP block) Was an Allergy Physician used for this Procedure?: No Estimated blood loss (mL): 10 IV fluids (mL): 2,300 Urine output (mL): 0 (No Robb to record output) Pathology: other (Stomach) Condition: stable Disposition: PACU
--- NOTE | 2022-12-21 10:58 | PC.NURSE ---
pt voided prior to going to or
--- NOTE | 2022-12-21 13:03 | PM.DS ---
DS: Providers Provider Date of Service: 12/22/22 Date of admission: 12/21/22 08:04 Primary care physician: Johnny Aguilar [facility] DS: Summary Hospital Course Hospital Course: ADMITTING DIAGNOSIS: obesity, HTN, asthma, migraine ? DISCHARGE DIAGNOSIS: same, s/p laparoscopic sleeve gastrectomy ? PAST SURGICAL HISTORY: ORIF right ankle, cesarian section, ear surgery ? PROCEDURE: upper endoscopy, laparoscopic sleeve gastrectomy ? DISCHARGE SUMMARY: ? History of Present Illness: ? The patient is a?32 year-old woman with a BMI of?43.1 kg/m2 and associated co-morbidities as described above. The patient had extensive work-up,lost?18.2 lbs preoperatively and was electively scheduled for laparoscopic, possible open sleeve gastrectomy and gastropexy. Risks and complications of the surgery were discussed with the patient in advance, particularly the possibility of , pulmonary embolism, anastomotic leak, bleeding, bowel injury, GERD, cardiac, renal or pulmonary complications. The patient understood all the risks and was in agreement with the surgical plan. ? Hospital Course: ? The patient underwent an uneventful laparoscopic sleeve gastrectomy with gastropexy on the day of admission. Postoperatively, the patient was transferred to the surgical floor. The patient received IV Acetaminophen and IV dilaudid for pain control. Patient was started on bariatric phase 1 diet POD #0. On postoperative day one, the patient was feeling well without nausea, vomiting, fevers, or tachycardia. The patient had some mild incisional pain and the abdomen was soft. ? On the morning of postoperative day one, the patient was continued on 1 ounce of water or ice every half hour. During the day, the patient did fairly well, having some incisional pain, but able to ambulate adequately and to tolerate liquids well. ? Since the patient is doing well, we decided that the patient was ready to be discharged. The patient was given instructions to follow-up with me next week and to call my office for any fever over 101, persistent abdominal pain, nausea, vomiting, GERD, symptoms of DVT such as calf tenderness, or leg swelling, or pulmonary embolism such as chest pain or shortness of breath. The patient was also instructed to drink 40-60 ounces of liquids per day using the 1-ounce cups. The patient had been given prescriptions for Tylenol for pain, Zofran prn for nausea, and pantoprazole and carafate previously. The patient was encouraged to ambulate and use the incentive spirometer. The patient was allowed to shower, but no baths, and encouraged to stay active at home. All of these instructions were given to the patient personally. All questions were answered and the patient understood all instructions, the instructions were also given to the patient in print. Time Spent with Patient Time attestation: Total time managing care of this patient today ____ minutes. Discharge coordination time: Less than 30 minutes Quality: Safe Use of Opioids Does Pt have an Active Cancer Diagnosis on the Problem List?: No Quality: Stroke Does the patient have a stroke diagnosis?: No Physical Exam Vital Signs: Vital Signs: Last Vital Signs Temp 98 F 12/21/22 08:32 Pulse 100 12/21/22 08:32 Resp 20 12/21/22 08:32 BP 135/78 12/21/22 08:32 O2 Del Method Room Air 12/21/22 08:32 BMI result Body Mass Index 39.4 DS: Data Data Completed and Pending Pending studies at discharge: Pending at discharge 12/21/22 12:15 Surgical [PTH] Routine Labs on day of discharge: Laboratory Results - last 24 hr 12/21/22 08:10 Urine Test NEGATIVE Discharge Plan Discharge Anticipated Discharge Date/Time: 12/22/22 13:06 Patient Disposition: Home, Self-Care Discharge Diagnosis: s/p laparoscopic sleeve gastrectomy Referrals: Johnny Aguilar, GENERAL EXPEDITOR-BC [Primary Care Provider] - 1 Week Discharge Medications: Continued albuterol sulfate 2.5 mg /3 mL (0.083 %) solution for nebulization 2.5 mg inhalation QID PRN (Reason: shortness of breath or wheezing) 90 Days Qty: 180 0RF albuterol sulfate 90 mcg/actuation HFA aerosol inhaler 2 puff inhalation Q4-6H PRN (Reason: shortness of breath or wheezing) Qty: 18 0RF pantoprazole 40 mg tablet,delayed release (DR/EC) 40 mg PO DAILY Qty: 30 2RF sucralfate 100 mg/mL suspension 10 ml PO BID Qty: 400 2RF ondansetron 4 mg tablet,disintegrating 4 mg PO Q12H Qty: 20 0RF Rx Instructions: Only take one every 12 hours as needed if you have nausea Held lisinopril 5 mg tablet 5 mg PO DAILY Qty: 90 1RF Hold Instructions: Will need to check BP daily at home and discuss with Dr Bower Discontinued cholecalciferol (vitamin D3) 125 mcg (5,000 unit) capsule 125 mcg PO DAILY Qty: 30 2RF thiamine HCl (vitamin B1) 100 mg tablet 100 mg PO DAILY Qty: 30 2RF Discharge Orders: Discharge Order (Routine); Ordered 12/22/22 Ordered By: Bill Rg Activity on Discharge: No heavy lifting Stand Alone Forms: Patient Portal Discharge page Care Plan Goals: weight loss Health Concerns: obesity Plan of Treatment: No tub baths, sex or returning to work until discussed at first post op appointment. No exercise, alcohol, tobacco or illegal drug use. Continue to use incentive spirometer hourly while awake. Walk in home for 5- 10 minutes every 2 hours during the first week. Follow all instructions in the bariatric handbook and call with any questions.Discharge Instructions 1. Please call your doctor or come back to the emergency room should any new symptoms arise. 2. You will receive a courtesy call from [facility] 24-48 hours after discharge. 3. Activity: abstain from alcohol, practice limited stair climbing, no bending, no driving, no exercise, no illicit substances, no lifting, no sex, no tub bath, no work. 4. Diet: continue as discussed with Dr. Bower. 5. Dressing Change/Wound Care: Your incision is covered by clear bandages and guaze underneath. If the area is tender, you may apply an ice pack for short intervals (no more than 20 minutes on, followed by at least 20 minutes off). Do not apply heat. Do not use creams, lotions, or topical antibiotics unless instructed to do so by your surgeon. These can cause infection or allergic reaction. 6. Call your doctor if: - Your temperature exceeds 101.5 F - You experience excessive pain or swelling - You have an unexpected reaction to medication - You have excessive bleeding - You experience continued vomiting/nausea - Your incision begins to separate - Your incision shows signs of infection such as increased redness, swelling, excessive pain, heat, or drainage (light blood or clear fluid is normal) 7. General instructions: No lifting greater than 5 lbs for the next 4 weeks[address] within 24 hours of taking narcotic pain medications. If you do not move your bowels in the next 2 days, please take milk of magnesia over the counter. Please follow the post op diet and do not advance your diet until you are seen in the office in about 2 weeks. Please walk around your home every hour or two to prevent blood clots from forming in your legs. You do not need to wake from sleeping to walk. Please sleep in a bed or couch to prevent kinking at the hips and knees. Please take your incentive spirometer (your lung residential interior designer) home with you and use it for the next few days to prevent pneumonias. You may shower, no hot tubs, baths or swimming pools. Please call the office with any questions or concerns such as increasing abdominal pain, fever, chills, shortness of breath, chest pain, leg pain or swelling, or redness or drainage from your incisions. Please stay on stage 3 diet which includes sugar free clear liquids such as ice pops and jello and broth and crystal light. Avoid all carbonation. Please drink 3 protein shakes with at least 25-30 grams of protein daily or 3 of the Celebrate 4:1 shakes which can be purchased in our office. The Celebrate shakes have all of the bariatric vitamins you need if you consume these shakes. If you are drinking other protein shakes, you will need to purchase the Celebrate multivitamins and calcium that we provide in the office (they will provide all the vitamins you need). Please make sure you are consuming at least 40-60 ounces of water in addition to your 3 protein shakes daily. Do not hesitate to contact the office with any questions at . The patient's medical history has been reviewed and they are considered low risk for post op DVT and therefore DVT prophylaxis is not considered necessary. Travel after surgery was reviewed. The patient has not disclosed any travel plans during the first 30 days after surgery and they have been advised that within the first 30 days after surgery any bus, plane, train or car travel over 2 hours in duration is contraindicated due to the possibility of developing blood clots from immobility. Any travel, needs to include periods of ambulation of 10 minutes in duration every 2 hours.? The patient was instructed to discuss any plans for travel during this period with their bariatric surgeon. Assessment: stable s/p laparoscopic sleeve gastrectomy
[2022-12-21] MEDS: ondansetron HCL 4 MG/2 ML VIAL IVPUSH (13:24)
[2022-12-21] MEDS: Metoclopramide HCl 10 MG/2 ML VIAL IVPUSH (13:28)
[2022-12-21 13:58] LABS: Hematocrit 36.1 % (37.0-47.0); Hemoglobin 12.2 g/dl (12.0-16.0)
[2022-12-21 14:22] LABS: Anion Gap 18 (12-20); Blood Urea Nitrogen 8 mg/dL (9-16); Calcium 9.3 mg/dL (8.4-10.2); Carbon Dioxide 19 mmol/L (22-29); Chloride 105 mmol/L (96-108); Creatinine Clr Calc Pharmacy 174.1; Estimated Glomerular Filt Rate > 60; Glucose Random 128 mg/dL (60-115); Potassium 3.5 mmol/L (3.3-5.1); Sodium 138 mmol/L (135-145)
[2022-12-21] MEDS: 0.9 % Sodium Chloride Flush 3 ML SYRINGE IVFLUSH (15:25)
[2022-12-21] MEDS: HYDROmorphone HCl 0.5 MG/0.5 ML SYRINGE 0.25 MG IVPUSH (17:15)
[2022-12-21] MEDS: ceFAZolin Sodium/Dextrose,Iso 2 GM/50 ML PIGGYBACK IV (17:20)
[2022-12-21] MEDS: Famotidine/PF 20 MG/2 ML VIAL IVPUSH (20:10)
[2022-12-22] MEDS: Acetaminophen 1,000 MG/100 ML PIGGYBACK 400 MG IV ×2 (01:28→07:50)
[2022-12-22] MEDS: Lactated Ringers 1,000 ML 100 ML IVCONT (01:29)
[2022-12-22 03:34] VITALS: BP 119/64; PULSE 104; RESP 16; TEMP 36.8; O2SAT 96
[2022-12-22 06:54] LABS: MANUAL DIFF FLAG NO
[2022-12-22 06:59] LABS: Basophils Percent Auto 0.2 % (0-2); Hematocrit 39.5 % (37.0-47.0); Hemoglobin 13.3 g/dl (12.0-16.0); Imm Gran Abs Auto 0.06 X10*3/uL (0.00-0.03); Imm Gran Pct Auto 0.5 % (0.0-0.4); Lymphocytes Absolute Auto 1.4 X10*3/uL (1.2-4.9); Lymphocytes Percent Auto 11.5 % (20-40); Mean Corpuscular HGB Conc 33.7 g/dl (31.0-35.0); Mean Corpuscular Hemoglobin 29.1 pg (27.0-33.0); Mean Corpuscular Volume 86.4 fL (80.0-98.0); Mean Platelet Volume 11.4 fL (9.4-12.3); Monocytes Absolute Auto 0.7 X10*3/uL (0.1-1.2); Monocytes Percent Auto 5.9 % (2-11); Neutrophils Absolute Auto 10.1 x10*3/uL (2.0-8.3); Neutrophils Percent Auto 81.9 % (45-73); Platelet Count 319 X10*3/uL (160-400); Red Blood Count 4.57 X10*6/uL (4.20-5.50); Red Cell Distribution Width 12.3 % (11.0-16.0); White Blood Count 12.3 X10*3/uL (4.8-10.8)
[2022-12-22 07:20] LABS: Anion Gap 18 (12-20); Blood Urea Nitrogen 4 mg/dL (9-16); Calcium 9.6 mg/dL (8.4-10.2); Carbon Dioxide 17 mmol/L (22-29); Chloride 108 mmol/L (96-108); Creatinine Clr Calc Pharmacy 143.7; Estimated Glomerular Filt Rate > 60; Glucose Random 98 mg/dL (60-115); Potassium 3.8 mmol/L (3.3-5.1); Sodium 139 mmol/L (135-145)
[2022-12-22 07:43] VITALS: BP 143/91; PULSE 97; RESP 16; TEMP 36.2; O2SAT 98
[2022-12-22] MEDS: Famotidine/PF 20 MG/2 ML VIAL IVPUSH (07:46)
[2022-12-22] MEDS: ondansetron HCL 4 MG/2 ML VIAL IVPUSH (07:46)
[2022-12-22] MEDS: lisinopriL 5 MG TABLET PO (07:52)
--- NOTE | 2022-12-22 11:05 | PM.PNGS ---
Subjective Subjective Date of Service: 12/22/22 Patient reports: tolerating liquids well Interval history: POD 1 s/p LSG mild c/o gas pain, instructed on proper PO intake Physical Exam Vital Signs: Vital Signs: Last Vital Signs Temp 97.1 F 12/22/22 07:43 Pulse 97 12/22/22 07:43 Resp 16 12/22/22 07:43 BP 143/91 H 12/22/22 07:43 Pulse Ox 98 12/22/22 07:43 O2 Del Method Room Air 12/22/22 07:43 O2 Flow Rate 2 12/22/22 03:34 BMI result Body Mass Index 40.9 GI: Inspection: Yes incision (c/d/i) Objective Data Active Medications Albuterol Sulfate (Albuterol Sulfate (0.083%) 2.5 Mg/3 Ml Vial.Neb) 2.5 mg INHALE ONCE PRN PRN Reason: Shortness of Breath/Wheezing Albuterol Sulfate (Albuterol Sulfate (0.083%) 2.5 Mg/3 Ml Vial.Neb) 2.5 mg INHALE ONCE PRN PRN Reason: Wheezing Albuterol Sulfate (Albuterol Sulfate (0.083%) 2.5 Mg/3 Ml Vial.Neb) 2.5 mg INHALE QID PRN PRN Reason: shortness of breath or wheezing Albuterol Sulfate (Albuterol Sulfate 90 Mcg 8 Gm Inhaler) 2 puff INHALE Q4H PRN PRN Reason: shortness of breath or wheezing Famotidine (Famotidine/Pf 20 Mg/2 Ml Vial) 20 mg IVPUSH BID SOFIYA Last Admin: 12/22/22 07:46 Dose: 20 mg Documented By: COTEMA Fentanyl (Fentanyl Citrate/Pf 100 Mcg/2 Ml Vial) 25 mcg IVPUSH Q5M PRN; Protocol PRN Reason: Pain, Moderate(Pain Scale 4-6) Hydromorphone HCl (Hydromorphone Hcl 0.5 Mg/0.5 Ml Syringe) 0.25 mg IVPUSH Q5M PRN; Protocol PRN Reason: Pain, Severe (Pain Scale 7-10) Hydromorphone HCl (Hydromorphone Hcl 0.5 Mg/0.5 Ml Syringe) 0.25 mg IVPUSH Q4H PRN; Protocol PRN Reason: Pain, Moderate(Pain Scale 4-6) Last Admin: 12/21/22 17:15 Dose: 0.25 mg Documented By: DANIEL Lactated Ringer's (Lr) 1,000 mls @ 100 mls/hr IVCONT .Q10H [facility] Last Infusion: 12/22/22 10:42 Dose: 0 mls/hr Documented By: COTEMA Lactated Ringer's (Lr) 1,000 mls @ 100 mls/hr IVCONT .Q10H [facility] Last Admin: 12/22/22 07:36 Dose: Not Given Documented By: ROSITA Non-Admin Reason: IV Running Acetaminophen (Ofirmev) 1,000 mg in 100 mls @ 400 mls/hr IV Q6H PRN PRN Reason: Pain, Moderate(Pain Scale 4-6) Last Infusion: 12/22/22 08:26 Dose: 0 mls/hr Documented By: ROSITA Lisinopril (Lisinopril 5 Mg Tablet) 5 mg PO DAILY [facility]; Protocol Last Admin: 12/22/22 07:52 Dose: 5 mg Documented By: ROSITA Metoclopramide HCl (Metoclopramide Hcl 10 Mg/2 Ml Vial) 10 mg IVPUSH Q6H PRN PRN Reason: Nausea Last Admin: 12/21/22 13:28 Dose: 10 mg Documented By: KIMI Ondansetron HCl (Ondansetron Hcl 4 Mg/2 Ml Vial) 4 mg IVPUSH Q8H PRN PRN Reason: Nausea Last Admin: 12/22/22 07:46 Dose: 4 mg Documented By: ROSITA Oxycodone HCl (Oxycodone Hcl Immed Release 5 Mg Tablet) 5 mg PO ONCE PRN PRN Reason: Pain, Severe (Pain Scale 7-10) Sodium Chloride (0.9 % Sodium Chloride Flush 3 Ml Syringe) [facility] Last Admin: 12/22/22 07:35 Dose: Not Given Documented By: IZAIAHEMA Non-Admin Reason: IV Running Labs 12/22/22 06:40 12/22/22 06:40 Labs: Laboratory Results - last 24 hr 12/21/22 12/22/22 12/22/22 13:52 06:40 06:40 MCV 86.4 MCH 29.1 MCHC 33.7 RDW 12.3 Plt Count 319 MPV 11.4 Immature Gran % (Auto) 0.5 H Neut % (Auto) 81.9 H Lymph % (Auto) 11.5 L Frederick % (Auto) 5.9 Eos % (Auto) 0.0 Baso % (Auto) 0.2 Lymph # (Auto) 1.4 Frederick # (Auto) 0.7 Eos # (Auto) 0.0 Baso # (Auto) 0.0 Abs Immat Gran (auto) 0.06 H Absolute Neuts (auto) 10.1 H Absolute Nucleated RBC 0.000 Nucleated RBC % (auto) 0.0 Anion Gap 18 18 Estim Creat Clear Calc 174.1 143.7 Estimated GFR > 60 > 60 Random Glucose 128 H 98 Calcium 9.3 9.6 Procedures Date of Service Date of Service: 12/22/22 Progress Note: A&P Assessment and plan (1) S/P laparoscopic sleeve gastrectomy: Status: Acute Assessment and Plan: POD 1 ok for dc instructed on proper po intake smith phase 1 deit Time Spent With Patient Time: Total time managing care of this patient today ____ minutes. Quality Stroke Does the patient have a stroke diagnosis?: No VTE Prior VTE?: No VTE Risk Level:: Surgical - low VTE Device Contraindication: N/A - Device Ordered VTE Drug Contraindication: Treatment Not Indicated
--- NOTE | 2022-12-22 11:28 | MHC.CM.PN ---
PT REPORTS SHE LIVES WITH HER MOTHER AND CHILDREN SHE IS INDEPENDENT WITH CARE AT [place] AND HAS A NEBULIZER FOR DME PT HAS NO HOME/COMMUNITY SERVICES SHE DOES NOT HAVE A HCP AND DOES NOT FEEL READY TO COMPLETE ONE TODAY DOCUMENT AND INFORMATION PROVIDED PCP: YSABEL FRANKS IMM DELIVERED PT WILL DC HOME TODAY WITH NO SERVICES VIA PRIVATE TRANSPORT
--- NOTE | 2022-12-22 20:06 | HO.POSTANES ---
Post Anesthesia Evaluation Post Anesthesia Evaluation Date of Service: 12/22/22 Anesthesia: General Endotracheal-GETA Mental Status: Awake Pain Control: Satisfactory Nausea/Vomiting: None Hydration: Adequate Anesthesia-Related Issues: No Anes. Related Issues
== END 2022-12-22 11:45 | disposition home or self-care (01) | DRG 621 ==
LOC: HO.SSSA 13:07 → HO.S3 13:11
PROVIDERS: Nurse Practitioner; Physician Assistant Surgical; Admitting Provider Surgery; PCP Nurse Practitioner Family; Visit Provider Surgery
PROC: 0DB64Z3 Excision of Stomach, Percutaneous Endoscopic Approach, Vertical (ICD-10-PCS; CPT 43845; principal; 2022-12-21 10:10)
DX: E66.01 Morbid (severe) obesity due to excess calories (principal); Z68.41 Body mass index [BMI] 40.0-44.9, adult; I10 Essential (primary) hypertension; J45.909 Unspecified asthma, uncomplicated; G43.909 Migraine, unspecified, not intractable, without status migrainosus; M54.9 Dorsalgia, unspecified; K76.0 Fatty (change of) liver, not elsewhere classified; K21.9 Gastro-esophageal reflux disease without esophagitis; Z20.822 Contact with and (suspected) exposure to COVID-19; Z87.891 Personal history of nicotine dependence; Z79.899 Other long term (current) drug therapy
CPT/HCPCS: 36415; 80048; 80053; 80061; 81025; 83036; 83525; 84443; 85014; 85018; 85025; 85610; 85730; 86140; 86850; 86900; 86901; 87635; 88304; 88307; 88342; A4649; C9088; C9145; J0131; J0690; J1100; J1170; J2250; J2405; J2550; J2765; J2795; J3010

== ENCOUNTER → 2022-12-28 07:51 | Outpatient (BNVA) | payer OTHER, SELFPAY | PROVIDERS: PCP Nurse Practitioner Family; Visit Provider Physician Assistant Surgical ==

== ENCOUNTER 2023-01-01 10:45 | Outpatient (AMB) | payer OTHER, SELFPAY ==
--- NOTE | 2023-01-01 10:47 | MHC.OFFVISWM ---
Intake VS Expanded 01/01/23 10:50 Height 5 ft 6 in Weight 230 lb 12.8 oz BMI 37.2 BP 123/80 Blood Pressure Location Rt brachial Blood Pressure Position Sitting Pulse 108 H Pulse Source Pulse Oximeter Temp 98.1 F Temperature Source Temporal Artery Scan Pulse Oximetry 96 Oxygen Delivery Method Room Air Body Fat 102.2 Body Fat Percentage 44.4 Free Fat Mass 128.4 Muscle Mass 122.0 Visceral Mass 10.0 Water Mass 92.2 BMR 1,825 Intake Visit Reasons: (OV) PO LSG 12/21/22 Allergies mushroom Allergy (Intermediate, Verified 01/01/23 10:49) rash/swelling HPI HPI Comments History of Present Illness Details 32 yo female returns to the office for evaluation and to fill out HR paperwork to allow 4 weeks off from work as 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 No complaints PFSH Medical History (Updated 12/22/22 @ 00:12 by Jordy Gilmore) Acute frontal sinusitis Arthritis Asthma Asthma exacerbation Dizziness Dysuria Encounter for pre-employment examination Hair loss HTN (hypertension) Migraine with aura Morbid obesity Physical exam Plantar fasciitis of right foot Plantar fasciitis, bilateral Right ankle pain STI (sexually transmitted infection) Tendonitis of ankle, right Surgical History (Updated 12/28/22 @ 08:39 by Chante Draper CMA) H/O colonoscopy History of ear surgery History of surgery on lower extremity Hx of section S/P laparoscopic sleeve gastrectomy Family History Mother Stroke Hypertension Lupus Father Heart disease Brother Cancer Son No problems noted. Son No problems noted. Son No problems noted. 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 Keep follow up appt for 4 weeks post op Coding Level of Care Code Global (94313) Diagnoses S/P laparoscopic sleeve gastrectomy Z98.84
[2023-01-01 10:50] VITALS: BP 123/80; PULSE 108; TEMP 36.7; O2SAT 96; BMI 37.2
== END 2023-01-01 11:06 | disposition home or self-care (01) ==
PROVIDERS: PCP Nurse Practitioner Family; Visit Provider Physician Assistant Surgical
DX: Z98.84 Bariatric surgery status (principal)
CPT/HCPCS: 99024

== ENCOUNTER → 2023-01-01 10:45 | Outpatient (BNVA) | payer OTHER, SELFPAY | PROVIDERS: PCP Nurse Practitioner Family; Visit Provider Physician Assistant Surgical ==

== ENCOUNTER 2023-01-15 11:49 | Outpatient (AMB) | payer OTHER, SELFPAY ==
--- NOTE | 2023-01-15 11:54 | MHC.OFFVISWM ---
Intake VS Expanded 01/15/23 11:58 Height 5 ft 6 in Weight 222 lb 3.2 oz BMI 35.9 BP 130/77 Blood Pressure Location Rt brachial Blood Pressure Position Sitting Pulse 108 H Pulse Source Pulse Oximeter Temp 97.6 F Temperature Source Temporal Artery Scan Pulse Oximetry 97 Oxygen Delivery Method Room Air Body Fat 94.4 Body Fat Percentage 42.5 Free Fat Mass 127.6 Intake Visit Reasons: (OV) PO LSG 12/21/22 Poultry Picker Required: No Allergies mushroom Allergy (Intermediate, Verified 01/15/23 11:56) rash/swelling Medication List - Last Reconciled 01/15/23 by LILA Nava albuterol sulfate 90 mcg/actuation 2 puffs inhalation Q4-6H PRN albuterol sulfate 2.5 mg (3 mL) inhalation QID PRN 90 days pantoprazole 40 mg PO DAILY sennosides (senna) 17.2 mg (2 x 8.6 mg) PO BEDTIME PRN 90 days sucralfate 10 mL PO BID HPI HPI Comments History of Present Illness Details This?a?32?yo female who is s/p LSG without hiatal hernia repair on?12/21/22. Presents for 1 month post op visit. Weight today is 222.2 pounds, with a BMI of 35.8. There has been a 45.2 pound weight loss,(initial weight 267.4 pounds) since starting the program on 09/14/22 reflecting a 16.9% total body weight loss and a weight loss of 21.2 pounds since surgery (operative weight 243.4 pounds) reflecting a 8.7% TBWL since surgery. No complaints of nausea, emesis, abdominal pain or reflux. Reports infrequent but normal bowel movements every 1-2 days and uses stool softeners regularly. Original weight on 09/14/22 was 267.4 pounds and op weight was 243.4 pounds. States she does not like the bars. Wants to restart isopure shakes Present meal plan includes: 2 Celebrate 4:1 w 2 scoops each 1 Celebrate 4:1 w 1/2 scoop 1 ZP bar Drinking 48 oz water ? Exercise routine includes: Treadmill daily, 300 calories [facility] Medical History (Updated 12/22/22 @ 00:12 by Background Daemon) Acute frontal sinusitis Arthritis Asthma Asthma exacerbation Dizziness Dysuria Encounter for pre-employment examination Hair loss HTN (hypertension) Migraine with aura Morbid obesity Physical exam Plantar fasciitis of right foot Plantar fasciitis, bilateral Right ankle pain STI (sexually transmitted infection) Tendonitis of ankle, right Surgical History H/O colonoscopy History of ear surgery History of surgery on lower extremity Hx of section S/P laparoscopic sleeve gastrectomy Family History Mother Stroke Hypertension Lupus Father Heart disease Brother Cancer Son No problems noted. Son No problems noted. Son No problems noted. 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 Cognitive needs: No Hearing needs: No Vision needs: No Physical Exam Vital Signs: Last Vital Signs Temp 97.6 F 01/15/23 11:58 Pulse 108 H 01/15/23 11:58 BP 130/77 01/15/23 11:58 Pulse Ox 97 01/15/23 11:58 Oxygen Delivery Method Room Air 01/15/23 11:58 BMI result Body Mass Index 35.9 GI Inspection: Yes incision (healing well) Assessment & Plan Assessment & Plan (1) Obesity: Code(s): E66.9 - Obesity, unspecified Plan: Change meal plan to 2 shakes Celebrate 4:1 w 2 scoops each isopure 20 gm 1 scoop shake Isopure 20 gm 1/2 scoop shake rtc 4 weeks Coding Level of Care Code Global (98013) Diagnoses Obesity E66.9
[2023-01-15 11:58] VITALS: BP 130/77; PULSE 108; TEMP 36.4; O2SAT 97; BMI 35.9
== END 2023-01-15 12:47 | disposition home or self-care (01) ==
PROVIDERS: PCP Nurse Practitioner Family; Visit Provider Physician Assistant Surgical
DX: E66.9 Obesity, unspecified (principal)
CPT/HCPCS: 99024

== ENCOUNTER → 2023-01-15 11:49 | Outpatient (BNVA) | payer OTHER, SELFPAY | PROVIDERS: PCP Nurse Practitioner Family; Visit Provider Physician Assistant Surgical ==

== ENCOUNTER 2023-01-22 13:13 | Outpatient (AMB) | payer OTHER, SELFPAY ==
--- NOTE | 2023-01-22 13:46 | AM.OFFWIN_ITS ---
Intake Vital Signs 01/22/23 13:58 Height 5 ft 6 in BP 116/78 Blood Pressure Location Lt brachial Position Sitting Intake Visit Reasons: EP, numbness, stabbing pain in right hip and leg Patient Tobacco Use Status: Former Tobacco user Allergies mushroom Allergy (Intermediate, Verified 01/23/23 08:14) rash/swelling Medication List - Last Reconciled 01/23/23 by Severo Killian MD albuterol sulfate 90 mcg/actuation 2 puffs inhalation Q4-6H PRN albuterol sulfate 2.5 mg (3 mL) inhalation QID PRN 90 days lidocaine 5% (Lidoderm) 1 patch topical DAILY pantoprazole 40 mg PO DAILY sennosides (senna) 17.2 mg (2 x 8.6 mg) PO BEDTIME PRN 90 days sucralfate 10 mL PO BID HPI EP, numbness, stabbing pain in right hip and leg HPI Details Patient presents to the office for a sick visit. Complaining of lower back pain for the past week. No history of fall or trauma prior to the onset of symptoms. No urinary incontinence. No fevers or chills. Pain is worse on bending forwards or sideways. Relieve done sitting down. Pain is radiating into the gluteal area. [facility] Medical History (Updated 01/23/23 @ 08:15 by Severo Killian MD) Acute frontal sinusitis Arthritis Asthma Asthma exacerbation Dizziness Dysuria Encounter for pre-employment examination Hair loss HTN (hypertension) Migraine with aura Morbid obesity Physical exam Plantar fasciitis of right foot Plantar fasciitis, bilateral Right ankle pain STI (sexually transmitted infection) Tendonitis of ankle, right Surgical History H/O colonoscopy History of ear surgery History of surgery on lower extremity Hx of section S/P laparoscopic sleeve gastrectomy Family History Mother Stroke Hypertension Lupus Father Heart disease Brother Cancer Son No problems noted. Son No problems noted. Son No problems noted. 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 Back: no CVA tenderness Assessment & Plan Assessment & Plan (1) Low back pain: Code(s): M54.50 - Low back pain, unspecified Plan: Patient unable to take nonsteroidals due to recent gastric bypass surgery. Lidocaine patches suggested. Medications: New lidocaine 5% (Lidoderm) leave on most painful area for up to 12 hrs 1 patch topical DAILY 15 ea 0RF Coding Level of Care Code Est Pt Level 3 (98471) Diagnoses Low back pain M54.50
[2023-01-22 13:58] VITALS: BP 116/78
== END 2023-01-22 14:29 | disposition home or self-care (01) ==
PROVIDERS: PCP Nurse Practitioner Family; Visit Provider Internal Medicine
DX: M54.50 Low back pain, unspecified (principal)
CPT/HCPCS: 99213

== ENCOUNTER 2023-01-31 11:54 | Outpatient (AMB) | payer OTHER, SELFPAY ==
--- NOTE | 2023-01-31 11:57 | A.OFFVIS_ITS ---
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 Current nutrition plan per Dr. Bower 1/2 scoop isopure infusion - 10g protein 1 zone perfect bar - 14g protein 1 PP shake 1/2 scoop powder - 12g protein Zone perfect bar - 14g protein = 50g protein , 550kcal, 16g fat, 55g carb with 28g added sugar However patient states she is unhappy with the above plan and she is not eating/drinking everything listed. She feels very tired/weak and has headaches. She has not eaten any real food yet, is 6 weeks postop. No complications or issues. Hydration patient reports inadequate Vitamins: Recently switched off the 4 in 1 protein shakes. She has already purchased the [id number] vitamins Dietary counseling reduction Diagnosis Nutrition problem #1 inadequate protein energy As related to (etiology) #1 inadequate oral intake As evidenced by (sign/symptom) #1 food recall Monitoring/Goals Nutrition problem monitoring total energy intake, level of knowledge/skill, total PRO intake, total CHO intake and weight Outcome progress progressing Learning/Education Readiness to learn good Stages of change action Educational materials provided Yes Most Recent Diabetes Results: Cholesterol 164 mg/dL 12/15/22 HDL Cholesterol 41 mg/dL 12/15/22 Triglycerides 53 mg/dL 12/15/22 Creatinine 0.73 mg/dL (0.5-1.4) 12/22/22 Blood Urea Nitrogen 4 mg/dL (9-16) L 12/22/22 Sodium 139 mmol/L (135-145) 12/22/22 Potassium 3.8 mmol/L (3.3-5.1) 12/22/22 Chloride 108 mmol/L (96-108) 12/22/22 Carbon Dioxide 17 mmol/L (22-29) L 12/22/22 Calcium 9.6 mg/dL (8.4-10.2) 12/22/22 AST 15 U/L (5-31) 12/15/22 ALT 24 U/L (0-31) 12/15/22 Total Protein 7.6 g/dL (6.5-8.0) 12/15/22 Albumin 4.3 g/dL (3.5-5.0) 12/15/22 [facility] Medical History (Updated 01/30/23 @ 12:55 by Johnny Aguilar, [facility]) Acute frontal sinusitis Arthritis Asthma Asthma exacerbation Dizziness Dysuria Encounter for pre-employment examination Hair loss HTN (hypertension) Migraine with aura Morbid obesity Physical exam Plantar fasciitis of right foot Plantar fasciitis, bilateral Right ankle pain STI (sexually transmitted infection) Tendonitis of ankle, right Surgical History H/O colonoscopy History of ear surgery History of surgery on lower extremity Hx of section S/P laparoscopic sleeve gastrectomy Family History Mother Stroke Hypertension Lupus Father Heart disease Brother Cancer Son No problems noted. Son No problems noted. Son No problems noted. 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 will follow up with me in 1 week feb 08 at 12pm video Telehealth Telehealth Location of provider rendering services: practice address Location of patient: other (work , private location) Patient Identification confirmed using: Name, : Yes Telehealth method: voice only Patient verbally consented to treatment: Yes Patient verbally consented to billing insurance company: Yes Patient informed of any privacy concerns related to visit: Yes Minutes spent on Phone/Video with Pt.: 20 Coding Level of Care Code Nutr Indiv Subseq (75857) Diagnoses Obesity (BMI 30-39.9) E66.9 Time Spent (min) 20
[2023-01-31 11:58] VITALS: BMI 34.9
== END 2023-01-31 12:03 | disposition home or self-care (01) ==
LOC: HO.HBS 11:54
PROVIDERS: PCP Nurse Practitioner Family; Visit Provider Dietitian, Registered
DX: E66.9 Obesity, unspecified (principal)

== ENCOUNTER → 2023-01-31 11:54 | Outpatient (BNVA) | payer OTHER, SELFPAY | PROVIDERS: PCP Nurse Practitioner Family; Visit Provider Dietitian, Registered | DX: E66.9 Obesity, unspecified (principal); Z68.34 Body mass index [BMI] 34.0-34.9, adult; Z98.84 Bariatric surgery status; Z71.3 Dietary counseling and surveillance | CPT/HCPCS: 97803 ==

== ENCOUNTER 2023-02-08 12:00 | Outpatient (AMB) | payer OTHER, SELFPAY ==
--- NOTE | 2023-02-08 11:59 | MHC.AMNUTRGE ---
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 gave bars list last appt 1 egg or 1oz chicken with a little hot sauce . She wants add in cooked veg Hydration reports adequate about 70oz daily Vitamins: [id number] vitamins, tolerating well now. Exercise: was going to the gym, but car is broken now. Is walking outside at the track, or doing videos at home most days of the week. Dietary counseling reduction Diagnosis Nutrition problem #1 inadequate protein energy As related to (etiology) #1 inadequate oral intake As evidenced by (sign/symptom) #1 food recall Monitoring/Goals Nutrition problem monitoring total energy intake, level of knowledge/skill, total PRO intake, total CHO intake and weight Outcome progress progressing Learning/Education Readiness to learn good Stages of change action Educational materials provided Yes Most Recent Diabetes Results: Cholesterol 164 mg/dL 12/15/22 HDL Cholesterol 41 mg/dL 12/15/22 Triglycerides 53 mg/dL 12/15/22 Creatinine 0.73 mg/dL (0.5-1.4) 12/22/22 Blood Urea Nitrogen 4 mg/dL (9-16) L 12/22/22 Sodium 139 mmol/L (135-145) 12/22/22 Potassium 3.8 mmol/L (3.3-5.1) 12/22/22 Chloride 108 mmol/L (96-108) 12/22/22 Carbon Dioxide 17 mmol/L (22-29) L 12/22/22 Calcium 9.6 mg/dL (8.4-10.2) 12/22/22 AST 15 U/L (5-31) 12/15/22 ALT 24 U/L (0-31) 12/15/22 Total Protein 7.6 g/dL (6.5-8.0) 12/15/22 Albumin 4.3 g/dL (3.5-5.0) 12/15/22 [facility] Medical History (Updated 01/30/23 @ 12:55 by Johnny Aguilar, [facility]) Acute frontal sinusitis Arthritis Asthma Asthma exacerbation Dizziness Dysuria Encounter for pre-employment examination Hair loss HTN (hypertension) Migraine with aura Morbid obesity Physical exam Plantar fasciitis of right foot Plantar fasciitis, bilateral Right ankle pain STI (sexually transmitted infection) Tendonitis of ankle, right Surgical History H/O colonoscopy History of ear surgery History of surgery on lower extremity Hx of section S/P laparoscopic sleeve gastrectomy Family History Mother Stroke Hypertension Lupus Father Heart disease Brother Cancer Son No problems noted. Son No problems noted. Son No problems noted. 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 continue 2 Fairlife shakes, 1 bar (or 2oz protein) and 1 meal 1oz protein and 1oz cooked veg. no raw, no salad, no fruits.Continue hydration, MVI. add calcium. Will increase exercise intensity. F/u in 4 weeks and encouraged communication in the meantime as needed Telehealth Telehealth Location of provider rendering services: practice address Location of patient: address on file Patient Identification confirmed using: Name, : Yes Telehealth method: video Patient verbally consented to treatment: Yes Patient verbally consented to billing insurance company: Yes Patient informed of any privacy concerns related to visit: Yes Minutes spent on Phone/Video with Pt.: 20 Coding Level of Care Code Nutr Indiv Subseq ([id number]) Diagnoses Obesity (BMI 30-39.9) E66.9 Time Spent (min) 20
[2023-02-08 12:07] VITALS: BMI 34.2
== END 2023-02-08 13:03 | disposition home or self-care (01) ==
LOC: HO.HBS 13:02
PROVIDERS: PCP Nurse Practitioner Family; Visit Provider Dietitian, Registered
DX: E66.9 Obesity, unspecified (principal)

== ENCOUNTER → 2023-02-08 12:00 | Outpatient (BNVA) | payer OTHER, SELFPAY | PROVIDERS: PCP Nurse Practitioner Family; Visit Provider Dietitian, Registered | DX: E66.9 Obesity, unspecified (principal); Z68.34 Body mass index [BMI] 34.0-34.9, adult; Z90.3 Acquired absence of stomach [part of]; Z71.3 Dietary counseling and surveillance | CPT/HCPCS: 97803 ==

== ENCOUNTER → 2023-03-08 11:34 | Outpatient (BNVA) | payer OTHER, SELFPAY | PROVIDERS: PCP Nurse Practitioner Family; Visit Provider Dietitian, Registered | DX: E66.9 Obesity, unspecified (principal); Z68.32 Body mass index [BMI] 32.0-32.9, adult | CPT/HCPCS: 97803 ==

== ENCOUNTER 2023-03-11 09:47 | Outpatient (AMB) | payer OTHER, SELFPAY ==
[2023-03-11 10:06] VITALS: BP 152/90; PULSE 96; TEMP 36.8; O2SAT 100; BMI 32.6
--- NOTE | 2023-03-11 10:06 | AM.OFFWIN_ITS ---
Intake Vital Signs 03/11/23 10:06 Height 5 ft 6 in Weight 202 lb BMI 32.6 BP 152/90 H Blood Pressure Location Lt brachial Position Sitting Pulse 96 Pulse Source Pulse Oximeter Temp 98.3 F Temp Source Oral Pulse Oximetry (%) 100 Oxygen Delivery Method Room Air Intake Visit Reasons: EP Lump on LT side Rib Intake Note: Patient is here today for lump on LT lower side above hip, Patient states woke up last night. Patient Tobacco Use Status: Former Tobacco user Allergies mushroom Allergy (Intermediate, Verified 03/11/23 10:15) rash/swelling Medication List - Last Reconciled 03/11/23 by Fatoumata Holley PA-C albuterol sulfate 90 mcg/actuation 2 puffs inhalation Q4-6H PRN albuterol sulfate 2.5 mg (3 mL) inhalation QID PRN 90 days calcium carbonate 200 mg PO DAILY lidocaine 5% (Lidoderm) 1 patch topical DAILY meloxicam 7.5 mg PO DAILY PRN pantoprazole 40 mg PO DAILY sennosides (senna) 17.2 mg (2 x 8.6 mg) PO BEDTIME PRN 90 days sucralfate 10 mL PO BID Do you need a note to return to daycare/school/sports/work: No HPI HPI Comments History of Present Illness Details This is a 32-year-old female with a past medical history of hypertension not currently medicated and gastric sleeve surgery 2 months ago presenting for evaluation of a painless lesion on her left flank that she noticed yesterday after laying on the ground and stretching 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 Patient states she has never felt this lesion before. Patient reports a 72 lb weight loss over the past 2 months as result of her gastric sleeve surgical procedure. [facility] Medical History Arthritis Asthma HTN (hypertension) Morbid obesity STI (sexually transmitted infection) Dysuria Dizziness Physical exam Migraine with aura Hair loss Plantar fasciitis, bilateral Tendonitis of ankle, right Plantar fasciitis of right foot Right ankle pain Encounter for pre-employment examination Acute frontal sinusitis Asthma exacerbation Surgical History S/P laparoscopic sleeve gastrectomy H/O colonoscopy History of ear surgery Hx of section History of surgery on lower extremity Family History Mother Stroke Hypertension Lupus Father Heart disease Brother Cancer Son No problems noted. Son No problems noted. Son No problems noted. 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 Cognitive needs: No Hearing needs: No Vision needs: No Review of Systems Const All systems reviewed & are unremarkable except as noted in HPI and below Denies chills, Denies fatigue, Denies fever(s) and Denies malaise Eyes Reports no additional complaints ENT Reports no additional complaints Card Reports no additional complaints Resp Reports no additional complaints Skin/Breast Reports system reviewed and no additional complaints, except as documented, Denies change in pigmentation, Reports lesions (left flank), Denies erythema, Denies rash, Denies skin swelling, Denies skin ulcer and Denies sores Neuro Reports no additional complaints Psych Reports no additional complaints Endo Denies fatigue Physical Exam Vital Signs: Last Vital Signs Temp 98.3 F 03/11/23 10:06 Pulse 96 03/11/23 10:06 BP 152/90 H 03/11/23 10:06 Pulse Ox 100 03/11/23 10:06 Oxygen Delivery Method Room Air 03/11/23 10:06 BMI result Body Mass Index 32.6 Const General: cooperative, healthy appearing, comfortable and no acute distress Nutritional Appearance: well nourished Orientation/consciousness: patient oriented x3 Limitations: no limitations GI Palpation (GI): Soft to palpation, nontender and no pulsatile masses Auscultation: normal bowel sounds Skin General skin exam: no erythema, no fluctuance and no induration Lesions: lesion noted left lateral flank size (2cm x 1.5cm overlying the 7th/8th rib overlying flank; soft, fixed, rubbery, non.tender, uniform in texture no fluctuance ), borders well-defined, color flesh-colored, consistency soft and fixed, morphology and surface Neuro General: patient oriented x3 Psych Appearance: grossly normal Mental Status: mental status grossly normal Speech and movement: Normal speech and movement present Affect: normal affect Insight: Good insight present (Psych) Judgement: Good judgement present (Psych) Assessment & Plan Assessment & Plan (1) Lipoma: Code(s): D17.9 - Benign lipomatous neoplasm, unspecified Qualifiers: Lipoma location: trunk Qualified Code(s): D17.1 - Benign lipomatous neoplasm of skin and subcutaneous tissue of trunk Plan Patient is seen and evaluated. The patient's lesion is most likely consistent with a lipoma that may have been present prior to her gastric sleeve surgery. Patient is reassured and instructed to follow-up with her primary care provider if she feels the size of the lesion is evolving. No further diagnostic imaging is warranted at this time. Coding Level of Care Code Est Pt Level 3 (34653) Diagnoses Lipoma of torso D17.1 Lipoma location: trunk Time Spent (min) 20
== END 2023-03-11 10:45 | disposition home or self-care (01) ==
PROVIDERS: PCP Nurse Practitioner Family; Visit Provider Physician Assistant
DX: D17.1 Benign lipomatous neoplasm of skin and subcutaneous tissue of trunk (principal)
CPT/HCPCS: 99213

== ENCOUNTER 2023-03-22 14:08 | Outpatient (AMB) | payer OTHER, SELFPAY ==
--- NOTE | 2023-03-22 14:04 | A.OFFVIS_ITS ---
Intake VS Expanded 03/22/23 14:13 03/22/23 14:13 Height 5 ft 6 in 5 ft 6 in Weight 194 lb BMI 31.3 Intake Visit Reasons: VIDEO PO LSG 12/21/22 Allergies mushroom Allergy (Intermediate, Verified 03/11/23 10:15) rash/swelling HPI Nutrition Presentation Details PO LSG DOS (12/21/22) PET CARETAKER weight August 2022 267# Preop weight 242# weight at 1 MO PO 222# weight at 10wks PO 201# currnet weight at 3 MO PO 194# Reason for consult elevated BMI Diet Assmnt Details Three Fairlife 30g shakes - is ok with this . likes them a lot , also has a protien abr if needed. reports she gets tired of food very quickly and easily. needs a lot of variety. last appt gave her lots of options but she reports she is now tired of all options. does report hair loss Hydration reports adequate about 70oz daily Vitamins: vitamins, just bought bariatric pal - I OK'ed at last appt, she wanted something she could order online Exercise: gym 4x per week Dietary counseling reduction Diagnosis Nutrition problem #1 overweight/obesity As related to (etiology) #1 excess energy intake and physical inactivity As evidenced by (sign/symptom) #1 high BMI Monitoring/Goals Nutrition problem monitoring total energy intake, level of knowledge/skill, total PRO intake, total CHO intake and weight Outcome progress progressing Learning/Education Readiness to learn excellent Stages of change action Educational materials provided Yes Most Recent Diabetes Results: No Data to Display PFS Medical History Arthritis Asthma HTN (hypertension) Morbid obesity STI (sexually transmitted infection) Dysuria Dizziness Physical exam Migraine with aura Hair loss Plantar fasciitis, bilateral Tendonitis of ankle, right Plantar fasciitis of right foot Right ankle pain Encounter for pre-employment examination Acute frontal sinusitis Asthma exacerbation Surgical History S/P laparoscopic sleeve gastrectomy H/O colonoscopy History of ear surgery Hx of section History of surgery on lower extremity Family History Mother Stroke Hypertension Lupus Father Heart disease Brother Cancer Son No problems noted. Son No problems noted. Son No problems noted. 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 f/u in a month and encouraged communiccation as needed with office. Telehealth Telehealth Location of provider rendering services: other (home address [facility]) Location of patient: address on file Patient Identification confirmed using: Name, : Yes Telehealth method: voice only Patient verbally consented to treatment: Yes Patient verbally consented to billing insurance company: Yes Patient informed of any privacy concerns related to visit: Yes Minutes spent on Phone/Video with Pt.: 20 Coding Level of Care Code Nutr Indiv Subseq ([id number]) Diagnoses Obesity (BMI 30-39.9) E66.9 Time Spent (min) 20
[2023-03-22 14:13] VITALS: BMI 31.3
== END 2023-03-22 14:15 | disposition home or self-care (01) ==
LOC: HO.HBS 14:08
PROVIDERS: PCP Nurse Practitioner Family; Visit Provider Dietitian, Registered
DX: E66.9 Obesity, unspecified (principal)

== ENCOUNTER → 2023-03-22 14:08 | Outpatient (BNVA) | payer OTHER, SELFPAY | PROVIDERS: PCP Nurse Practitioner Family; Visit Provider Dietitian, Registered | DX: E66.9 Obesity, unspecified (principal); Z68.31 Body mass index [BMI] 31.0-31.9, adult | CPT/HCPCS: 97803 ==

== ENCOUNTER 2023-03-27 07:53 | Outpatient (REF) | payer OTHER, SELFPAY | END 2023-03-27 07:54 | disposition home or self-care (01) | LOC: HO.SH 07:53 | PROVIDERS: Visit Provider Nurse Practitioner Family | DX: H91.90 Unspecified hearing loss, unspecified ear (principal) | CPT/HCPCS: 92557; 92567; 92588 ==

== ENCOUNTER 2023-04-03 09:07 | Outpatient (AMB) | payer OTHER, SELFPAY ==
--- NOTE | 2023-04-03 09:27 | MHC.PC.OV ---
Vital Signs 04/03/23 09:28 Height 5 ft 6 in Weight 195 lb 6 oz BMI 31.5 BP 138/90 H Blood Pressure Location Rt brachial Position Sitting Pulse 64 Pulse Source Pulse Oximeter Pulse Oximetry (%) 100 Oxygen Delivery Method Room Air Intake Visit Reasons: f/u on gastric sleeve Intake Note: pt was told by the surgeon to follow up for her gastric sleeve Allergies mushroom Allergy (Intermediate, Verified 04/03/23 09:31) rash/swelling Medication List - Last Reconciled 04/03/23 by Johnny Aguilar [facility] albuterol sulfate 90 mcg/actuation 2 puffs inhalation Q4-6H PRN albuterol sulfate 2.5 mg (3 mL) inhalation QID PRN 90 days calcium carbonate 200 mg PO DAILY lidocaine 5% (Lidoderm) 1 patch topical DAILY sennosides (senna) 17.2 mg (2 x 8.6 mg) PO BEDTIME PRN 90 days Tobacco use date assessed: 04/03/23 Dental Screening Dental Screen Date: 04/03/23 Did you have a dental visit in the last 12 months?: Yes Did you have a dental problem in the last 6 months where you did not have access to dental care?: No Was dental information given to patient?: Patient has dentist HPI f/u on gastric sleeve HPI Details Pt underwent a gastric sleeve surgery on December 21. Pt has lost over 70 pounds. She reports doing well and is following up with bariatrics. HTN: Pt reports that her blood pressure is elevated at appointments. She does not check her blood pressure at home, encouraged her to do so. Denies chest pain, shortness of breath, headache, dizziness, and blurred vision. She will drop off her BPs in a couple of weeks. [facility] Medical History Arthritis Asthma HTN (hypertension) Morbid obesity STI (sexually transmitted infection) Dysuria Dizziness Physical exam Migraine with aura Hair loss Plantar fasciitis, bilateral Tendonitis of ankle, right Plantar fasciitis of right foot Right ankle pain Encounter for pre-employment examination Acute frontal sinusitis Asthma exacerbation Surgical History S/P laparoscopic sleeve gastrectomy H/O colonoscopy History of ear surgery Hx of section History of surgery on lower extremity Family History Mother Stroke Hypertension Lupus Father Heart disease Brother Cancer Son No problems noted. Son No problems noted. Son No problems noted. 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 Jose Morataya, Irma Erwin, Blane Resendiz and colleagues, with an educational jojo from [email or web address]. Review of Systems Const Reports as per HPI Physical exam (Primary Care) Vital Signs: Last Vital Signs Pulse 64 04/03/23 09:28 BP 138/90 H 04/03/23 09:28 Pulse Ox 100 04/03/23 09:28 Oxygen Delivery Method Room Air 04/03/23 09:28 BMI result Body Mass Index 31.5 Tobacco/Smoking Status: Tobacco use Status Tobacco use date assessed 04/03/23 04/03/23 09:35 Patient Tobacco Use Status Former Tobacco user 04/03/23 09:28 Tobacco use type Pipe,Smokeless Tobacco 04/03/23 09:28 e-Cigarette/Vaping Use Currently Using 04/03/23 09:28 Thrive Assessment: Date of Thrive Assessment Date Thrive assessed 12/22/22 04/03/23 09:28 Const General: cooperative Orientation/consciousness: patient oriented x3 Resp Effort & Inspection: normal respiratory effort Auscultation: clear to auscultation bilaterally Cardio Rate: regular rate Rhythm: regular rhythm Heart sounds: S1 normal heart sound present and S2 normal heart sound present Neuro General: patient oriented x3 Psych Appearance: grossly normal Mental Status: mental status grossly normal Speech and movement: Normal speech and movement present Affect: normal affect Attitude: cooperative Thought process: Normal thought process present Thought content: Normal thought content present Insight: Good insight present (Psych) Judgement: Good judgement present (Psych) Assessment and Plan Assessment & Plan (1) S/P laparoscopic sleeve gastrectomy: Code(s): Z98.84 - Bariatric surgery status Plan: Labs ordered (2) HTN (hypertension): Code(s): I10 - Essential (primary) hypertension Plan: Labs ordered, BPs from home Plan The patient agreed to the use of a medical billing supervisor for this encounter. Scribed for CARLOZ Mathews by Jyoti Fisher medical billing supervisor, on 04/03/2023 at 09:35 EST Orders: Orders Complete Blood Count Auto Diff Today I10 - Essential (primary) hypertension, Z98.84 - Bariatric surgery status TSH reflex Free T4 Today I10 - Essential (primary) hypertension, Z98.84 - Bariatric surgery status Comprehensive Met. Panel Today I10 - Essential (primary) hypertension, Z98.84 - Bariatric surgery status UA CC w/rflx Micro + Cult Today I10 - Essential (primary) hypertension, Z98.84 - Bariatric surgery status Lipid Panel Today I10 - Essential (primary) hypertension, Z98.84 - Bariatric surgery status Medications: New docusate sodium 100 mg PO DAILY 30 days 30 caps 2RF Refilled sennosides (senna) 17.2 mg (2 x 8.6 mg) PO BEDTIME 90 days PRN 90 tabs 0RF constipation Coding Level of Care Code Est Pt Level 3 (43828) Diagnoses S/P laparoscopic sleeve gastrectomy Z98.84 HTN (hypertension) I10
[2023-04-03 09:28] VITALS: BP 138/90; PULSE 64; O2SAT 100; BMI 31.5
== END 2023-04-03 10:01 | disposition home or self-care (01) ==
PROVIDERS: PCP Nurse Practitioner Family; Visit Provider Nurse Practitioner Family
DX: Z98.84 Bariatric surgery status (principal); I10 Essential (primary) hypertension
CPT/HCPCS: 99213

== ENCOUNTER 2023-04-03 10:11 | Outpatient (REF) | payer OTHER, SELFPAY | END 2023-04-03 10:12 | disposition home or self-care (01) | LOC: HO.HMGCLDS 10:11 | PROVIDERS: PCP Nurse Practitioner Family; Visit Provider Nurse Practitioner Family | DX: I10 Essential (primary) hypertension (principal); Z98.84 Bariatric surgery status | CPT/HCPCS: 36415; 80053; 80061; 84443; 85025 ==

== ENCOUNTER 2023-04-22 15:02 | Outpatient (AMB) | payer OTHER, SELFPAY ==
--- NOTE | 2023-04-22 14:38 | A.OFFVIS_ITS ---
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 likes them a lot , also has a protien abr if needed. reports she gets tired of food very quickly and easily. needs a lot of variety. last appt gave her lots of options but she reports she is now tired of all options. does report hair loss Hydration reports adequate about 70oz daily Vitamins: [id number] vitamins, just bought bariatric pal, but didn't tolerate either. is now taking bariatic fusion Exercise: gym 4x per week Dietary counseling reduction Diagnosis Nutrition problem #1 overweight/obesity As related to (etiology) #1 excess energy intake and physical inactivity As evidenced by (sign/symptom) #1 high BMI Monitoring/Goals Nutrition problem monitoring total energy intake, level of knowledge/skill, total PRO intake, total CHO intake and weight Outcome progress progressing Learning/Education Readiness to learn excellent Stages of change action Educational materials provided Yes Most Recent Diabetes Results: Cholesterol 161 mg/dL (<200) 04/03/23 HDL Cholesterol 36 mg/dL (>40) L 04/03/23 Triglycerides 53 mg/dL (<150) 04/03/23 Creatinine 0.65 mg/dL (0.5-1.4) 04/03/23 Blood Urea Nitrogen 11 mg/dL (9-16) 04/03/23 Sodium 140 mmol/L (135-145) 04/03/23 Potassium 3.5 mmol/L (3.3-5.1) 04/03/23 Chloride 107 mmol/L (96-108) 04/03/23 Carbon Dioxide 23 mmol/L (22-29) 04/03/23 Calcium 9.7 mg/dL (8.4-10.2) 04/03/23 AST 14 U/L (5-31) 04/03/23 ALT 14 U/L (0-31) 04/03/23 Total Protein 7.6 g/dL (6.5-8.0) 04/03/23 Albumin 4.5 g/dL (3.5-5.0) 04/03/23 [facility] Medical History Arthritis Asthma HTN (hypertension) Morbid obesity STI (sexually transmitted infection) Dysuria Dizziness Physical exam Migraine with aura Hair loss Plantar fasciitis, bilateral Tendonitis of ankle, right Plantar fasciitis of right foot Right ankle pain Encounter for pre-employment examination Acute frontal sinusitis Asthma exacerbation Surgical History S/P laparoscopic sleeve gastrectomy H/O colonoscopy History of ear surgery Hx of section History of surgery on lower extremity Family History Mother Stroke Hypertension Lupus Father Heart disease Brother Cancer Son No problems noted. Son No problems noted. Son No problems noted. 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 pt prefers monthly check ins for accountability so will f/u next 05/23 8:30 Telehealth Telehealth Location of provider rendering services: practice address Location of patient: address on file Patient Identification confirmed using: Name, : Yes Telehealth method: video Patient verbally consented to treatment: Yes Patient verbally consented to billing insurance company: Yes Patient informed of any privacy concerns related to visit: Yes Minutes spent on Phone/Video with Pt.: 20 Coding Level of Care Code Nutr Indiv Subseq ([id number]) Diagnoses Obesity (BMI 30-39.9) E66.9 Time Spent (min) 20
== END 2023-04-22 15:17 | disposition home or self-care (01) ==
LOC: HO.HBS 15:02
PROVIDERS: PCP Nurse Practitioner Family; Visit Provider Dietitian, Registered
DX: E66.9 Obesity, unspecified (principal)

== ENCOUNTER → 2023-04-22 15:02 | Outpatient (BNVA) | payer OTHER, SELFPAY | PROVIDERS: PCP Nurse Practitioner Family; Visit Provider Dietitian, Registered | DX: E66.9 Obesity, unspecified (principal); Z68.30 Body mass index [BMI] 30.0-30.9, adult | CPT/HCPCS: 97803 ==

== ENCOUNTER 2023-05-23 09:37 | Outpatient (AMB) | payer OTHER, SELFPAY ==
--- NOTE | 2023-05-23 09:10 | A.OFFVIS_ITS ---
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 Reason for consult elevated BMI Diet Assmnt Details Now does 1.5 eggs in the morning, 2 fairlife shakes, and 1 meal. very happy with this. no questions or concerns. Hydration reports adequate about 70oz daily Vitamins: [id number], bariatric pal, bariatic fusion - has tried all and does not tolerate. she does for a period of time, then makesher sick. takes with biggest meal of the day. Exercise: gym 3x per week ; doing mostly weights for 40 mins Dietary counseling reduction Diagnosis Nutrition problem #1 overweight/obesity As related to (etiology) #1 excess energy intake and physical inactivity As evidenced by (sign/symptom) #1 high BMI Monitoring/Goals Nutrition problem monitoring total energy intake, level of knowledge/skill, total PRO intake, total CHO intake and weight Outcome progress progressing Learning/Education Readiness to learn excellent Stages of change action Most Recent Diabetes Results: Cholesterol 161 mg/dL (<200) 04/03/23 HDL Cholesterol 36 mg/dL (>40) L 04/03/23 Triglycerides 53 mg/dL (<150) 04/03/23 Creatinine 0.65 mg/dL (0.5-1.4) 04/03/23 Blood Urea Nitrogen 11 mg/dL (9-16) 04/03/23 Sodium 140 mmol/L (135-145) 04/03/23 Potassium 3.5 mmol/L (3.3-5.1) 04/03/23 Chloride 107 mmol/L (96-108) 04/03/23 Carbon Dioxide 23 mmol/L (22-29) 04/03/23 Calcium 9.7 mg/dL (8.4-10.2) 04/03/23 AST 14 U/L (5-31) 04/03/23 ALT 14 U/L (0-31) 04/03/23 Total Protein 7.6 g/dL (6.5-8.0) 04/03/23 Albumin 4.5 g/dL (3.5-5.0) 04/03/23 [facility] Medical History Arthritis Asthma HTN (hypertension) Morbid obesity STI (sexually transmitted infection) Dysuria Dizziness Physical exam Migraine with aura Hair loss Plantar fasciitis, bilateral Tendonitis of ankle, right Plantar fasciitis of right foot Right ankle pain Encounter for pre-employment examination Acute frontal sinusitis Asthma exacerbation Surgical History S/P laparoscopic sleeve gastrectomy H/O colonoscopy History of ear surgery Hx of section History of surgery on lower extremity Family History Mother Stroke Hypertension Lupus Father Heart disease Brother Cancer Son No problems noted. Son No problems noted. Son No problems noted. 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 f/u for routine 6 MO PA appt. then resume appts with me. Telehealth Telehealth Location of provider rendering services: practice address Location of patient: address on file Patient Identification confirmed using: Name, : Yes Telehealth method: video Patient verbally consented to treatment: Yes Patient verbally consented to billing insurance company: Yes Patient informed of any privacy concerns related to visit: Yes Minutes spent on Phone/Video with Pt.: 15 Coding Level of Care Code Nutr Indiv Subseq ([id number]) Diagnoses Overweight (BMI 25.0-29.9) E66.3 Time Spent (min) 15
[2023-05-23 12:10] VITALS: BMI 29.2
== END 2023-05-23 11:57 | disposition home or self-care (01) ==
LOC: HO.HBS 09:37
PROVIDERS: PCP Nurse Practitioner Family; Visit Provider Dietitian, Registered
DX: E66.3 Overweight (principal)

== ENCOUNTER → 2023-05-23 09:37 | Outpatient (BNVA) | payer OTHER, SELFPAY | PROVIDERS: PCP Nurse Practitioner Family; Visit Provider Dietitian, Registered | DX: E66.3 Overweight (principal); Z68.29 Body mass index [BMI] 29.0-29.9, adult | CPT/HCPCS: 97803 ==

== ENCOUNTER 2023-07-23 14:39 | Outpatient (AMB) | payer OTHER, SELFPAY ==
[2023-07-23 09:06] VITALS: BMI 28.8
--- NOTE | 2023-07-23 09:06 | MHC.OFFVISWM ---
Intake VS Expanded 07/23/23 09:06 Height 5 ft 6 in Weight 178 lb 9.6 oz BMI 28.8 Body Fat % 34.3 Body Fat Mass 61.2 Fat Free Mass 117.4 Visceral Fat Rating 11 Body Water % 45.1 Body Water Mass 80.5 Muscle Mass/Score 110.4 Basal Metabolic Rate/Score 1,507 Intake Visit Reasons: (TV) PO LSG 12/21/22 Family Preservation Caseworker Required: No Allergies mushroom Allergy (Intermediate, Verified 04/03/23 09:31) rash/swelling Medication List - Last Reconciled 07/23/23 by LILA Nava albuterol sulfate 90 mcg/actuation 2 puffs inhalation Q4-6H PRN albuterol sulfate 2.5 mg (3 mL) inhalation QID PRN 90 days calcium carbonate 200 mg PO DAILY docusate sodium 100 mg PO DAILY 30 days lidocaine 5% (Lidoderm) 1 patch topical DAILY sennosides (senna) 17.2 mg (2 x 8.6 mg) PO BEDTIME PRN 90 days vitamin B complex 1 tab PO DAILY 90 days HPI HPI Comments History of Present Illness Details This?a?33?yo female who is s/p LSG without hiatal hernia repair on?12/21/22. Presents for 7 month post op visit. Weight today is 178.6 pounds, with a BMI of 28.8. There has been a 88.8 pound weight loss,(initial weight 267.4 pounds) since starting the program on 09/14/22 reflecting a 33.2% total body weight loss and a weight loss of 64.8 pounds since surgery (operative weight 243.4 pounds) reflecting a 26.6% TBWL since surgery. No complaints of nausea, emesis, abdominal pain or reflux. Does report fatigue. She states she also had a stall with her weight loss at 180 pounds for about 2 months. Has not been able to go to the gym as much due to increased work demands and taking care of her mother. Reports infrequent but normal bowel movements every 1-2 days and uses stool softeners regularly. Using 2 one a day women vitamin Present meal plan includes: fairlife RTD, 30 gm fruit meal salad, chicken (4-5 strips) protein bar - think another shake Drinking 80 oz water, no soda or juice ? Exercise routine includes: 2 x last week and once the week prior, treadmill, weights. [facility] Medical History Arthritis Asthma HTN (hypertension) Morbid obesity STI (sexually transmitted infection) Dysuria Dizziness Physical exam Migraine with aura Hair loss Plantar fasciitis, bilateral Tendonitis of ankle, right Plantar fasciitis of right foot Right ankle pain Encounter for pre-employment examination Acute frontal sinusitis Asthma exacerbation Surgical History S/P laparoscopic sleeve gastrectomy H/O colonoscopy History of ear surgery Hx of section History of surgery on lower extremity Family History Mother Stroke Hypertension Lupus Father Heart disease Brother Cancer Son No problems noted. Son No problems noted. Son No problems noted. 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 Recommend discontinue protein bar as she wants to continue both protein shakes. Encouraged to return to the gym on a regular schedule to improve her weight loss. Utilizing both cardio with a goal of burning 300 calories per day and weight training. Return to clinic with Mirella in 3 or 4 weeks. Orders: Orders Insulin Today E51.9 - Thiamine deficiency, unspecified, E55.9 - Vitamin D deficiency, unspecified, I10 - Essential (primary) hypertension, Z98.84 - Bariatric surgery status Hemoglobin A1c Today E51.9 - Thiamine deficiency, unspecified, E55.9 - Vitamin D deficiency, unspecified, I10 - Essential (primary) hypertension, Z98.84 - Bariatric surgery status Complete Blood Count Auto Diff Today E51.9 - Thiamine deficiency, unspecified, E55.9 - Vitamin D deficiency, unspecified, I10 - Essential (primary) hypertension, Z98.84 - Bariatric surgery status IRON PROFILE Today E51.9 - Thiamine deficiency, unspecified, E55.9 - Vitamin D deficiency, unspecified, I10 - Essential (primary) hypertension, Z98.84 - Bariatric surgery status Zinc Today E51.9 - Thiamine deficiency, unspecified, E55.9 - Vitamin D deficiency, unspecified, I10 - Essential (primary) hypertension, Z98.84 - Bariatric surgery status C Reactive Protein Today E51.9 - Thiamine deficiency, unspecified, E55.9 - Vitamin D deficiency, unspecified, I10 - Essential (primary) hypertension, Z98.84 - Bariatric surgery status Vitamin A Today E51.9 - Thiamine deficiency, unspecified, E55.9 - Vitamin D deficiency, unspecified, I10 - Essential (primary) hypertension, Z98.84 - Bariatric surgery status Vitamin D 25-OH Total Today E51.9 - Thiamine deficiency, unspecified, E55.9 - Vitamin D deficiency, unspecified, I10 - Essential (primary) hypertension, Z98.84 - Bariatric surgery status Basic Metabolic Panel Today E51.9 - Thiamine deficiency, unspecified, E55.9 - Vitamin D deficiency, unspecified, I10 - Essential (primary) hypertension, Z98.84 - Bariatric surgery status Lipid Panel Today E51.9 - Thiamine deficiency, unspecified, E55.9 - Vitamin D deficiency, unspecified, I10 - Essential (primary) hypertension, Z98.84 - Bariatric surgery status Vitamin B12 and Folate Today E51.9 - Thiamine deficiency, unspecified, E55.9 - Vitamin D deficiency, unspecified, I10 - Essential (primary) hypertension, Z98.84 - Bariatric surgery status Vitamin B1 Today E51.9 - Thiamine deficiency, unspecified, E55.9 - Vitamin D deficiency, unspecified, I10 - Essential (primary) hypertension, Z98.84 - Bariatric surgery status TSH reflex Free T4 Today E51.9 - Thiamine deficiency, unspecified, E55.9 - Vitamin D deficiency, unspecified, I10 - Essential (primary) hypertension, Z98.84 - Bariatric surgery status Ferritin Today E51.9 - Thiamine deficiency, unspecified, E55.9 - Vitamin D deficiency, unspecified, I10 - Essential (primary) hypertension, Z98.84 - Bariatric surgery status Telehealth Telehealth Location of provider rendering services: practice address Location of patient: address on file Patient Identification confirmed using: Name, : Yes Telehealth method: voice only Patient verbally consented to treatment: Yes Patient verbally consented to billing insurance company: Yes Patient informed of any privacy concerns related to visit: Yes Minutes spent on Phone/Video with Pt.: 20 Coding Level of Care Code Tele Est Pt Level 3 (38091) Diagnoses S/P laparoscopic sleeve gastrectomy Z98.84 Time Spent (min) 20
== END 2023-07-23 14:57 | disposition home or self-care (01) ==
LOC: HO.HBS 14:39
PROVIDERS: PCP Nurse Practitioner Family; Visit Provider Physician Assistant Surgical
DX: E66.3 Overweight (principal); Z68.28 Body mass index [BMI] 28.0-28.9, adult; Z90.3 Acquired absence of stomach [part of]; Z98.84 Bariatric surgery status
CPT/HCPCS: 99442

== ENCOUNTER → 2023-07-23 14:39 | Outpatient (BNVA) | payer OTHER, SELFPAY | PROVIDERS: PCP Nurse Practitioner Family; Visit Provider Physician Assistant Surgical ==

== ENCOUNTER 2023-08-08 10:35 | Outpatient (AMB) | payer OTHER, SELFPAY ==
--- NOTE | 2023-08-08 10:27 | A.OFFVIS_ITS ---
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 Diet Assmnt Details 2 Fairlife shakes, 1 meal - salad and ch icken which she really enjoys stopped her protein bar, enjoyed it before. She reports desire for sweets lately. Hydration reports adequate about 70oz daily Vitamins: [id number], bariatric pal, bariatic fusion - has tried all and does not tolerate. she does for a period of time, then makesher sick. takes with biggest meal of the day. Since, she has switched to a standard MVI and just picked up her b complex. She has an order for labs ni the system, she didn't know if this was ready , plans to get her labs done tomorrow Exercise: nothing right now, lots of sickness/illness in the family. previously was going to gym 3x per week ; doing mostly weights for 40 mins Dietary counseling reduction Diagnosis Nutrition problem #1 overweight/obesity As related to (etiology) #1 excess energy intake and physical inactivity As evidenced by (sign/symptom) #1 high BMI Monitoring/Goals Nutrition problem monitoring total energy intake, level of knowledge/skill, total PRO intake, total CHO intake and weight Outcome progress progressing Learning/Education Readiness to learn excellent Stages of change action Most Recent Diabetes Results: Cholesterol 161 mg/dL (<200) 04/03/23 HDL Cholesterol 36 mg/dL (>40) L 04/03/23 Triglycerides 53 mg/dL (<150) 04/03/23 Creatinine 0.65 mg/dL (0.5-1.4) 04/03/23 Blood Urea Nitrogen 11 mg/dL (9-16) 04/03/23 Sodium 140 mmol/L (135-145) 04/03/23 Potassium 3.5 mmol/L (3.3-5.1) 04/03/23 Chloride 107 mmol/L (96-108) 04/03/23 Carbon Dioxide 23 mmol/L (22-29) 04/03/23 Calcium 9.7 mg/dL (8.4-10.2) 04/03/23 AST 14 U/L (5-31) 04/03/23 ALT 14 U/L (0-31) 04/03/23 Total Protein 7.6 g/dL (6.5-8.0) 04/03/23 Albumin 4.5 g/dL (3.5-5.0) 04/03/23 [facility] [place] Medical History Arthritis Asthma HTN (hypertension) Morbid obesity STI (sexually transmitted infection) Dysuria Dizziness Physical exam Migraine with aura Hair loss Plantar fasciitis, bilateral Tendonitis of ankle, right Plantar fasciitis of right foot Right ankle pain Encounter for pre-employment examination Acute frontal sinusitis Asthma exacerbation Surgical History S/P laparoscopic sleeve gastrectomy H/O colonoscopy History of ear surgery Hx of section History of surgery on lower extremity Family History Mother Stroke Hypertension Lupus Father Heart disease Brother Cancer Son No problems noted. Son No problems noted. Son No problems noted. 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 resume exercise as soon as able. get labs done fasting and dot take vitamins for 24 horus prior. f/u 09/11 at 10:30 Telehealth Telehealth Location of provider rendering services: practice address Location of patient: address on file Patient Identification confirmed using: Name, : Yes Telehealth method: video Patient verbally consented to treatment: Yes Patient verbally consented to billing insurance company: Yes Patient informed of any privacy concerns related to visit: Yes Minutes spent on Phone/Video with Pt.: 20 Coding Level of Care Code Nutr Indiv Subseq (15599) Diagnoses Overweight (BMI 25.0-29.9) E66.3 Time Spent (min) 20
[2023-08-08 10:43] VITALS: BMI 28.6
== END 2023-08-08 10:43 | disposition home or self-care (01) ==
LOC: HO.HBS 10:35
PROVIDERS: PCP Nurse Practitioner Family; Visit Provider Dietitian, Registered
DX: E66.3 Overweight (principal)

== ENCOUNTER → 2023-08-08 10:35 | Outpatient (BNVA) | payer OTHER, SELFPAY | PROVIDERS: PCP Nurse Practitioner Family; Visit Provider Dietitian, Registered | DX: E66.3 Overweight (principal); Z68.28 Body mass index [BMI] 28.0-28.9, adult | CPT/HCPCS: 97803 ==

== ENCOUNTER 2023-09-12 10:40 | Outpatient (AMB) | payer OTHER, SELFPAY ==
--- NOTE | 2023-09-12 10:34 | A.OFFVIS_ITS ---
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 Diet Assmnt Details 2 Fairlife shakes, 1 meal - salad and ch icken which she really enjoys, having a Protein bar also. Feels that she is doing really well and happy with her eating habits now. Hydration reports adequate about 70oz daily Vitamins: , bariatric pal, bariatic fusion - has tried all and does not tolerate. she does for a period of time, then makes her sick. takes with biggest meal of the day. Since, she has switched to a standard MVI and just picked up her b complex. She has an order for labs ni the system, no Exercise: Minimal, is in the middle of moving and packing. Possibly being evicted and is under a lot of stress Feels proud that she hasn't resorted to previous emotional eating habits Dietary counseling reduction Diagnosis Nutrition problem #1 overweight/obesity As related to (etiology) #1 excess energy intake and physical inactivity As evidenced by (sign/symptom) #1 high BMI Monitoring/Goals Nutrition problem monitoring total energy intake, level of knowledge/skill, total PRO intake, total CHO intake and weight Outcome progress progressing Learning/Education Readiness to learn excellent Stages of change action Most Recent Diabetes Results: Cholesterol 161 mg/dL (<200) 04/03/23 HDL Cholesterol 36 mg/dL (>40) L 04/03/23 Triglycerides 53 mg/dL (<150) 04/03/23 Creatinine 0.65 mg/dL (0.5-1.4) 04/03/23 Blood Urea Nitrogen 11 mg/dL (9-16) 04/03/23 Sodium 140 mmol/L (135-145) 04/03/23 Potassium 3.5 mmol/L (3.3-5.1) 04/03/23 Chloride 107 mmol/L (96-108) 04/03/23 Carbon Dioxide 23 mmol/L (22-29) 04/03/23 Calcium 9.7 mg/dL (8.4-10.2) 04/03/23 AST 14 U/L (5-31) 04/03/23 ALT 14 U/L (0-31) 04/03/23 Total Protein 7.6 g/dL (6.5-8.0) 04/03/23 Albumin 4.5 g/dL (3.5-5.0) 04/03/23 [facility] Medical History Arthritis Asthma HTN (hypertension) Morbid obesity STI (sexually transmitted infection) Dysuria Dizziness Physical exam Migraine with aura Hair loss Plantar fasciitis, bilateral Tendonitis of ankle, right Plantar fasciitis of right foot Right ankle pain Encounter for pre-employment examination Acute frontal sinusitis Asthma exacerbation Surgical History S/P laparoscopic sleeve gastrectomy H/O colonoscopy History of ear surgery Hx of section History of surgery on lower extremity Family History Mother Stroke Hypertension Lupus Father Heart disease Brother Cancer Son No problems noted. Son No problems noted. Son No problems noted. 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 Telehealth Telehealth Location of provider rendering services: practice address Location of patient: address on file Patient Identification confirmed using: Name, : Yes Telehealth method: voice only Patient verbally consented to treatment: Yes Patient verbally consented to billing insurance company: Yes Patient informed of any privacy concerns related to visit: Yes Minutes spent on Phone/Video with Pt.: 15 Coding Level of Care Code Nutr Indiv Subseq ([id number]) Diagnoses Obesity (BMI 30-39.9) E66.9 Time Spent (min) 15
[2023-09-12 10:51] VITALS: BMI 27.6
== END 2023-09-12 10:51 | disposition home or self-care (01) ==
LOC: HO.HBS 10:40
PROVIDERS: PCP Nurse Practitioner Family; Visit Provider Dietitian, Registered
DX: E66.9 Obesity, unspecified (principal)

== ENCOUNTER → 2023-09-12 10:40 | Outpatient (BNVA) | payer OTHER, SELFPAY | PROVIDERS: PCP Nurse Practitioner Family; Visit Provider Dietitian, Registered | DX: E66.9 Obesity, unspecified (principal); Z71.3 Dietary counseling and surveillance; Z68.27 Body mass index [BMI] 27.0-27.9, adult | CPT/HCPCS: 97803 ==

== ENCOUNTER 2023-10-10 07:37 | Outpatient (AMB) | payer OTHER, SELFPAY ==
--- NOTE | 2023-10-10 07:27 | A.OFFPC_ITS ---
Intake Visit Reasons: lab review Allergies mushroom Allergy (Intermediate, Verified 10/10/23 07:40) rash/swelling Tobacco use date assessed: 04/03/23 Dental Screening Dental Screen Date: 04/03/23 HPI lab review HPI Details Pt c/o congestion, maxillary sinus discomfort, and sore throat since yesterday. She also reports some intermittent ear discomfort. ? viral illness. Will send prednisone. Pt c/o constipation. She is currently taking colace. Recommended daily miralax and increased fiber and water intake. Denies fever, chills, dysphagia, and dizziness. She knows to contact the office if symptoms get worse, or seek medical care (ER/urgent care). [facility] Medical History Arthritis Asthma HTN (hypertension) Morbid obesity STI (sexually transmitted infection) Dysuria Dizziness Physical exam Migraine with aura Hair loss Plantar fasciitis, bilateral Tendonitis of ankle, right Plantar fasciitis of right foot Right ankle pain Encounter for pre-employment examination Acute frontal sinusitis Asthma exacerbation Surgical History S/P laparoscopic sleeve gastrectomy H/O colonoscopy History of ear surgery Hx of section History of surgery on lower extremity Family History Mother Stroke Hypertension Lupus Father Heart disease Brother Cancer Son No problems noted. Son No problems noted. Son No problems noted. 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 Jose Morataya, Irma Erwin, Blane Resendiz and colleagues, with an educational jojo from [employer] Review of Systems Const Reports as per HPI Physical exam (Primary Care) Tobacco/Smoking Status: Tobacco use Status Tobacco use date assessed 04/03/23 04/03/23 09:35 Patient Tobacco Use Status Former Tobacco user 04/03/23 09:28 Tobacco use type Pipe,Smokeless Tobacco 04/03/23 09:28 e-Cigarette/Vaping Use Currently Using 04/03/23 09:28 Thrive Assessment: Date of Thrive Assessment Date Thrive assessed 12/22/22 04/03/23 09:28 Const General: cooperative Orientation/consciousness: patient oriented x3 Neuro General: patient oriented x3 Psych Appearance: grossly normal Mental Status: mental status grossly normal Speech and movement: Clear speech present Affect: normal affect Attitude: cooperative Thought process: Normal thought process present Thought content: Normal thought content present Insight: Good insight present (Psych) Judgement: Good judgement present (Psych) Assessment and Plan Assessment & Plan (1) Illness: Code(s): R69 - Illness, unspecified Plan: Prednisone sent (2) Constipation: Code(s): K59.00 - Constipation, unspecified Plan: Recommended daily miralax, increased fiber and water intake Plan The patient agreed to the use of a medical office coordinator for this encounter. Scribed for CARLOZ Mathews by Jyoti Fisher medical office coordinator, on 10/10/2023 at 07:25 EST. Medications: New prednisone 50 mg PO DAILY 6 tabs 0RF 6 days Coding Level of Care Code Tele Est Pt Level 3 (00876) Diagnoses Illness R69 Constipation K59.00
== END 2023-10-10 08:50 | disposition home or self-care (01) ==
PROVIDERS: PCP Nurse Practitioner Family; Visit Provider Nurse Practitioner Family
DX: R69 Illness, unspecified (principal); K59.00 Constipation, unspecified
CPT/HCPCS: 99213

== ENCOUNTER 2023-12-13 07:42 | Outpatient (REF) | payer OTHER, SELFPAY ==
[2023-12-13 07:58] LABS: MANUAL DIFF FLAG NO
[2023-12-13 09:03] LABS: Basophils Percent Auto 0.6 % (0-2); Eosinophils Absolute Auto 0.1 X10*3/uL (0.0-0.4); Eosinophils Percent Auto 1.7 % (0-4); Hematocrit 34.7 % (37.0-47.0); Hemoglobin 11.9 g/dl (12.0-16.0); Lymphocytes Absolute Auto 1.7 X10*3/uL (1.2-4.9); Lymphocytes Percent Auto 36.2 % (20-40); Mean Corpuscular HGB Conc 34.3 g/dl (31.0-35.0); Mean Corpuscular Hemoglobin 29.5 pg (27.0-33.0); Mean Corpuscular Volume 86.1 fL (80.0-98.0); Mean Platelet Volume 10.7 fL (9.4-12.3); Monocytes Absolute Auto 0.2 X10*3/uL (0.1-1.2); Monocytes Percent Auto 3.4 % (2-11); Neutrophils Absolute Auto 2.7 x10*3/uL (2.0-8.3); Neutrophils Percent Auto 58.1 % (45-73); Platelet Count 263 X10*3/uL (160-400); Red Blood Count 4.03 X10*6/uL (4.20-5.50); Red Cell Distribution Width 12.5 % (11.0-16.0); White Blood Count 4.6 X10*3/uL (4.8-10.8)
[2023-12-13 09:12] LABS: Estimated Average Glucose 103 mg/dL; Hemoglobin A1c % 5.2 % (<6.0)
[2023-12-13 09:51] LABS: Anion Gap 13 (12-20); Blood Urea Nitrogen 11 mg/dL (9-16); C Reactive Protein < 0.04 mg/dL (< or = 0.50); Calcium 9.7 mg/dL (8.4-10.2); Carbon Dioxide 25 mmol/L (22-29); Chloride 107 mmol/L (96-108); Cholesterol 176 mg/dL (<200); Estimated Glomerular Filt Rate > 60; Glucose Random 80 mg/dL (60-115); HDL Cholesterol 58 mg/dL (>40); Iron 104 mcg/dL (30-160); LDL Cholesterol Calculated 109 mg/dL (<100); Percent Iron Saturation 42 % (15-50); Potassium 3.8 mmol/L (3.3-5.1); Sodium 141 mmol/L (135-145); Total Iron Binding Capacity 245 mcg/dL (228-428); Triglycerides 47 mg/dL (<150); Unsaturated Iron Binding 141 ug/dL
[2023-12-13 10:07] LABS: Ferritin 19 ng/mL (10-122); TSH reflex Free T4 0.92 uIU/mL (0.32-4.0); Vitamin D 25-OH Total 19.2 ng/mL (>30)
[2023-12-13 10:29] LABS: Folate 7.4 ng/mL (> or = 4.0); Vitamin B12 435 pg/mL (200-900)
[2023-12-13 10:50] LABS: Insulin 3 uU/mL (2-29)
[2023-12-17 13:34] LABS: Zinc 53 mcg/dL (60-130)
[2023-12-18 19:53] LABS: Vitamin A 39 mcg/dL (38-98)
[2023-12-20 16:09] LABS: Vitamin B1 13 nmol/L (8-30)
== END 2023-12-13 07:43 | disposition home or self-care (01) ==
LOC: HO.LAB 07:42
PROVIDERS: PCP Nurse Practitioner Family; Visit Provider Physician Assistant Surgical
DX: I10 Essential (primary) hypertension (principal); E55.9 Vitamin D deficiency, unspecified; E51.9 Thiamine deficiency, unspecified; E66.01 Morbid (severe) obesity due to excess calories; J45.901 Unspecified asthma with (acute) exacerbation; Z98.84 Bariatric surgery status
CPT/HCPCS: 36415; 80048; 80061; 82306; 82607; 82728; 82746; 83036; 83525; 83540; 84425; 84443; 84590; 84630; 85025; 86140

== ENCOUNTER 2024-02-20 08:18 | Outpatient (AMB) | payer OTHER, SELFPAY ==
[2024-02-20 08:22] VITALS: BP 118/70; PULSE 90; O2SAT 97; BMI 29.5
--- NOTE | 2024-02-20 08:22 | A.OFFPC_ITS ---
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 Accompanied by: Self / Same As Patient Allergies mushroom Allergy (Intermediate, Verified 02/20/24 08:22) rash/swelling Medication List - Last Reconciled 02/20/24 by CARLOZ Pearl albuterol sulfate 90 mcg/actuation 2 puffs inhalation Q4-6H PRN albuterol sulfate 2.5 mg (3 mL) inhalation QID PRN 90 days calcium carbonate 200 mg PO DAILY cholecalciferol (vitamin D3) 125 mcg PO DAILY 90 days docusate sodium 100 mg PO DAILY 30 days sennosides (senna) 17.2 mg (2 x 8.6 mg) PO BEDTIME PRN 90 days vitamin B complex 1 tab PO DAILY 90 days zinc gluconate 30 mg PO DAILY Tobacco use date assessed: 02/20/24 Dental Screening Dental Screen Date: 02/20/24 Did you have a dental visit in the last 12 months?: Yes Did you have a dental problem in the last 6 months where you did not have access to dental care?: No Was dental information given to patient?: Patient has dentist HPI Annual PE HPI Details Pt is here for a PE. Will order labs. Pt reports a possible tick bite 3 weeks ago. Will order tick testing (denies any fevers, chills, rashes). Pt follows up with bariatric surgery. ON LICENSE OF [facility] Medical History Physical exam Arthritis Asthma HTN (hypertension) Morbid obesity STI (sexually transmitted infection) Dysuria Dizziness Migraine with aura Hair loss Plantar fasciitis, bilateral Tendonitis of ankle, right Plantar fasciitis of right foot Right ankle pain Encounter for pre-employment examination Acute frontal sinusitis Asthma exacerbation Surgical History S/P laparoscopic sleeve gastrectomy H/O colonoscopy History of ear surgery Hx of section History of surgery on lower extremity Family History Mother Stroke Hypertension Lupus Father Heart disease Brother Cancer Son No problems noted. Son No problems noted. Son No problems noted. 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 1. Little interest or pleasure in doing things: not at all 2. Feeling down, depressed, or hopeless: not at all 3. Trouble falling or staying asleep, or sleeping too much: several days 4. Feeling tired or having little energy: several days 5. Poor appetite or overeating: not at all 6. Feeling bad about yourself - or that you are a failure or have let yourself or your family down: not at all 7. Trouble concentrating on things, such as reading the newspaper or watching television: not at all 8. Moving or speaking so slowly that other people could have noticed. Or the opposite - being so fidgety or restless that you have been moving around a lot more than usual: not at all 9. Thoughts that you would be better off or of hurting yourself in some way: not at all Total score: 2 Depression Screening Interpretation: Negative Depression Screening Done: Yes 94926 - PHQ-9 Billing: Yes Source: Developed by Drs. Jose Morataya, Irma Erwin, Blane Resendiz and colleagues, with an educational jojo from [employer]. Thrive Questionnaire Date Thrive assessed: 02/20/24 I am a: Patient What is your living situation today?: I have a steady place to live Within the past 12 months, did the food you bought not last and you didn't have the money to get more?: I choose not to answer this question Within the past 12 months, did you worry whether your food would run out before you got money to buy more?: I choose not to answer this question Do you have trouble paying for medicines?: I choose not to answer this question Do you have trouble getting transportation to medical appointments?: I choose not to answer this question Do you have trouble paying your heating and electricity bill?: I choose not to answer this question Do you have trouble taking care of your child, family member or friend?: I choose not to answer this question Do you have trouble with day-to-day activities such as bathing, preparing meals, shopping, managing finances, etc.?: I choose not to answer this question Are you currently unemployed and looking for a job?: I choose not to answer this question Are you interested in more education?: I choose not to answer this question Please select the resources that you would like help with: None Currently or been in a relationship where the following occur: I choose not to answer THRIVE Score: 0 AUDIT C Alcohol Use Questionnaire (AUDIT-C) 1. How often do you have a drink containing alcohol?: Never 3. How often do you have six or more drinks on one occasion?: Never Total Score: 0 Score Reviewed/Action Taken: Yes BROOKLYN-7 AMB Questionnaire BROOKLYN-7 Date BROOKLYN - 7 assessed: 02/20/24 Feeling nervous, anxious, or on edge: 1 = Several days Not being able to stop or control worryin = Not at all Worrying too much about different things: 0 = Not at all Trouble relaxin = Several days Being so restless that it is hard to sit still: 1 = Several days Becoming easily annoyed or irritable: 1 = Several days Feeling afraid as if something awful might happen: 0 = Not at all Total BROOKLYN-7 score (0-4 normal; 5-9 mild; 10-14 moderate; 15-21 severe): 4 Source: Developed by Drs. Jose Morataya, Irma rEwin, Blane Resendiz and colleagues, with an educational jojo from [employer]. BROOKLYN-7 Assessment Billing BROOKLYN-7 Assessment Tool: BROOKLYN-7 Assessment 31099 Review of Systems Const Denies chills and Denies fever(s) Eyes Denies blurry vision ENT Denies vertigo, Denies dizziness and Denies sore throat Card Denies chest pain at rest, Denies chest pain with activity, Denies diaphoresis, Denies dyspnea and Denies dyspnea on exertion Resp Denies cough, Denies dyspnea, Denies dyspnea on exertion and Denies wheezing GI Denies abdominal pain, Denies melena, Denies hematochezia, Denies constipation, Denies diarrhea and Denies loose stools Denies hematuria Musc Denies numbness and Denies tingling Skin/Breast Denies lesions Neuro Denies vertigo, Denies dizziness, Denies numbness and Denies tingling Psych Denies anxiety, Denies depression, Denies homicidal ideation, Denies suicidal ideation and Denies other (substance abuse) Aller/Immun Denies wheezing Physical exam (Primary Care) Vital Signs: Last Vital Signs Pulse 90 02/20/24 08:22 BP 118/70 02/20/24 08:22 Pulse Ox 97 02/20/24 08:22 Oxygen Delivery Method Room Air 02/20/24 08:22 BMI result Body Mass Index 29.5 Tobacco/Smoking Status: Tobacco use Status Tobacco use date assessed 02/20/24 02/20/24 08:26 Patient Tobacco Use Status Former Tobacco user 02/20/24 08:26 Tobacco use type Pipe,Smokeless Tobacco 02/20/24 08:26 e-Cigarette/Vaping Use Currently Using 02/20/24 08:26 PHQ-9: PHQ-9 Score PHQ-9: Total score 2 02/20/24 08:30 Depression Screening Interpretation: Negative Thrive Assessment: Date of Thrive Assessment Date Thrive assessed 02/20/24 02/20/24 08:26 Currently or been in a relationship where the following occur: I choose not to answer Const General: cooperative Nutritional Appearance: obese Orientation/consciousness: patient oriented x3 HENMT Head: Yes normal to inspection, Yes normocephalic and Yes atraumatic Ears: TM's normal bilaterally Eyes General: appearance normal, both eyes and all related structures Alignment and Position: alignment normal and position normal Neck Neck: Yes normal visual inspection, Yes no lymphadenopathy and Yes supple Resp Effort & Inspection: normal respiratory effort Auscultation: clear to auscultation bilaterally Cardio Rate: regular rate Rhythm: regular rhythm Heart sounds: S1 normal heart sound present, S2 normal heart sound present and no murmurs GI Palpation (GI): Soft to palpation and nontender Auscultation: normal bowel sounds Skin Rashes: no rashes Neuro General: patient oriented x3, moves all extremities, no focal motor deficits and deep tendon reflexes 2+ bilaterally Romberg Test: Negative Psych Appearance: grossly normal Mental Status: mental status grossly normal Speech and movement: Normal speech and movement present Affect: normal affect Attitude: cooperative Thought process: Normal thought process present Thought content: Normal thought content present Insight: Good insight present (Psych) Judgement: Good judgement present (Psych) Assessment and Plan Assessment & Plan (1) Physical exam: Code(s): Z00.00 - Encounter for general adult medical examination without abnormal findings Plan: Labs ordered (2) Tick bite: Code(s): W57.XXXA - Bitten or stung by nonvenomous insect and other nonvenomous arthropods, initial encounter Plan: Tick testing ordered (3) Vitamin D deficiency: Code(s): E55.9 - Vitamin D deficiency, unspecified Plan The patient agreed to the use of a medical equipment sales for this encounter. Scribed for Johnny Aguilar [facility] by Jyoti Fisher medical equipment sales, on 02/20/2024 at 08:30 EST. Orders: Orders TSH reflex Free T4 Today Z00.00 - Encounter for general adult medical examination without abnormal findings UA CC w/rflx Micro + Cult Today Z00.00 - Encounter for general adult medical examination without abnormal findings Lipid Panel Today Z00.00 - Encounter for general adult medical examination without abnormal findings Lyme IgG/IgM w/reflex to WB Today W57.XXXA - Bitten or stung by nonvenomous insect and other nonvenomous arthropods, initial encounter Complete Blood Count Auto Diff Today Z00.00 - Encounter for general adult medical examination without abnormal findings Comprehensive [place]. Panel Fast Today Z00.00 - Encounter for general adult medical examination without abnormal findings Tick-borne Disease Molecular Today W57.XXXA - Bitten or stung by nonvenomous insect and other nonvenomous arthropods, initial encounter Vitamin D 25-OH Total Today E55.9 - Vitamin D deficiency, unspecified, Z00.00 - Encounter for general adult medical examination without abnormal findings Coding Level of Care Code Est Pt Prev Care [id number]([id number]) Diagnoses Physical exam Z00.00 Tick bite W57.XXXA Vitamin D deficiency E55.9 Additional Codes BROOKLYN-7 Assessment Billing - BROOKLYN-7 Assessment Tool: BROOKLYN-7 Assessment 24186 ([id number])
== END 2024-02-20 08:42 | disposition home or self-care (01) ==
PROVIDERS: PCP Nurse Practitioner Family; Visit Provider Nurse Practitioner Family
DX: Z00.00 Encounter for general adult medical examination without abnormal findings (principal); W57.XXXA Bitten or stung by nonvenomous insect and other nonvenomous arthropods, initial encounter; E55.9 Vitamin D deficiency, unspecified
CPT/HCPCS: 99395

== ENCOUNTER 2024-04-21 10:41 | Outpatient (AMB) | payer OTHER, SELFPAY ==
--- NOTE | 2024-04-21 10:35 | A.OFFVIS_ITS ---
VS Expanded 04/21/24 10:41 Height 5 ft 6 in Weight 180 lb BMI 29.0 Intake Visit Reasons: TV PO LSG 12/21/22 Allergies mushroom Allergy (Intermediate, Verified 02/20/24 08:22) rash/swelling Medication List - Last Reconciled 04/21/24 by LILA Hernandez albuterol sulfate 90 mcg/actuation 2 puffs inhalation Q4-6H PRN albuterol sulfate 2.5 mg (3 mL) inhalation QID PRN 90 days calcium carbonate 200 mg PO DAILY cane As directed cholecalciferol (vitamin D3) 125 mcg PO DAILY 90 days docusate sodium 100 mg PO DAILY 30 days sennosides (senna) 17.2 mg (2 x 8.6 mg) PO BEDTIME PRN 90 days vitamin B complex 1 tab PO DAILY 90 days zinc gluconate 30 mg PO DAILY HPI Comments Details: This?is a?33?yo female who is s/p LSG 12/21/2022. Presents for 1 year 4 month post op visit. Weight at last visit on 09/12/2023 was 171 pounds with a BMI of 27.6, weight today is 180 pounds, representing a 9 pound weight gain with a BMI today of 29.1.? No complaints of nausea, emesis, abdominal pain or reflux. Uses senna for constipation- requests refill. Present meal plan includes: 2 Fairlife shakes, 1 meal - salad and chicken, having a Protein bar also was taking up to 15 forks of just protein plus additional veg Exercise routine includes: treadmill or stairmaster or bike, 200+50+200, 3x/week at the gym [facility] Medical History Physical exam Arthritis Asthma HTN (hypertension) Morbid obesity STI (sexually transmitted infection) Dysuria Dizziness Migraine with aura Hair loss Plantar fasciitis, bilateral Tendonitis of ankle, right Plantar fasciitis of right foot Right ankle pain Encounter for pre-employment examination Acute frontal sinusitis Asthma exacerbation Surgical History S/P laparoscopic sleeve gastrectomy H/O colonoscopy History of ear surgery Hx of section History of surgery on lower extremity Family History Mother Stroke Hypertension Lupus Father Heart disease Brother Cancer Son No problems noted. Son No problems noted. Son No problems noted. 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 Cognitive needs: No Hearing needs: No Vision needs: No Telehealth Telehealth Telehealth Platform: Telephone Location of provider rendering services: other Location of patient: address on file Patient Identification confirmed using: Name, : Yes Telehealth method: voice only Patient verbally consented to treatment: Yes Patient verbally consented to billing insurance company: Yes Patient informed of any privacy concerns related to visit: Yes Minutes spent on Phone/Video with Pt.: 16 Assessment & Plan Assessment & Plan (1) S/P laparoscopic sleeve gastrectomy: Code(s): Z98.84 - Bariatric surgery status Category: Medical (2) Overweight: Code(s): E66.3 - Overweight Category: Medical Plan Too much protein, with inadequate exercise- Change meal plan to ONE Fairlife shake, plus half shake or one protein bar, plus one meal max 8f/8f. Discussed meals not being more than 16f total to avoid stretching sleeve. Increase exercise to goal 2000 ayan/week. RTC 2 months. Encouraged pt to reach out via text with any concerns. I spent a total of 30 minutes reviewing/updating records, examining the patient and counseling the patient on weight management as detailed above. Medications: Refilled sennosides (senna) 17.2 mg (2 x 8.6 mg) PO BEDTIME PRN 90 tabs 0RF constipation 90 days
[2024-04-21 10:41] VITALS: BMI 29.0
== END 2024-04-21 11:02 | disposition home or self-care (01) ==
LOC: HO.HBS 10:41
PROVIDERS: PCP Nurse Practitioner Family; Visit Provider Physician Assistant Surgical
DX: E66.3 Overweight (principal); Z68.29 Body mass index [BMI] 29.0-29.9, adult; Z90.3 Acquired absence of stomach [part of]; Z98.84 Bariatric surgery status
CPT/HCPCS: 99213; G2211

== ENCOUNTER → 2024-04-21 10:41 | Outpatient (BNVA) | payer OTHER, SELFPAY | PROVIDERS: PCP Nurse Practitioner Family; Visit Provider Physician Assistant Surgical ==

== ENCOUNTER 2024-09-21 11:38 | Outpatient (AMB) | payer OTHER, SELFPAY ==
--- NOTE | 2024-09-21 11:29 | A.OFFVIS_ITS ---
VS Expanded 09/21/24 11:41 Height 5 ft 6 in Weight 190 lb BMI 30.7 Intake Visit Reasons: TV PO LSG 12/21/22 Allergies mushroom Allergy (Intermediate, Verified 02/20/24 08:22) rash/swelling Medication List - Last Reconciled 09/21/24 by LILA Hernandez albuterol sulfate 90 mcg/actuation 2 puffs inhalation Q4-6H PRN albuterol sulfate 2.5 mg (3 mL) inhalation QID PRN 90 days calcium carbonate 200 mg PO DAILY cane As directed cholecalciferol (vitamin D3) 125 mcg PO DAILY 90 days docusate sodium 100 mg PO DAILY 30 days sennosides (senna) 17.2 mg (2 x 8.6 mg) PO BEDTIME PRN 90 days vitamin B complex 1 tab PO DAILY 90 days zinc gluconate 30 mg PO DAILY HPI Comments Details: This?is a?34?yo female who is s/p LSG 12/21/2022. Presents for 21 month post op visit. Weight at last visit on 04/21/2024 was 180 pounds with a BMI of 29, weight today is 190 pounds, representing a 10 pound weight gain with a BMI today of 30.7.? No complaints of nausea, emesis, abdominal pain or reflux, or constipation. Present meal plan includes: -created at last visit 1 Fairlife shake, plus half shake or one protein bar, plus one meal max 8f/8f Exercise routine includes: has not been able to go to the gym- has a special needs child Interested in skin removal surgery- abdomen. Discussed with Dr. Ludwig. Gets a rash in skin folds and in belly button- has tried topical creams OTC, but it comes back. When moisture collects here, it causes an unpleasant odor and she has to clean frequently, particularly in belly button. The rash is painful and itchy. Has to wear a tight compressive tank top tucked into waistband with underwear pulled up, to help support excess skin; otherwise, the excess skin is very uncomfortable. She even has to do this in summertime which is very uncomfortable. Activities of daily living are more difficult due to the excess skin, including walking, which is more uncomfortable due to heaviness of excess skin. [facility] Medical History Physical exam Arthritis Asthma HTN (hypertension) Morbid obesity STI (sexually transmitted infection) Dysuria Dizziness Migraine with aura Hair loss Plantar fasciitis, bilateral Tendonitis of ankle, right Plantar fasciitis of right foot Right ankle pain Encounter for pre-employment examination Acute frontal sinusitis Asthma exacerbation Surgical History S/P laparoscopic sleeve gastrectomy H/O colonoscopy History of ear surgery Hx of section History of surgery on lower extremity Family History Mother Stroke Hypertension Lupus Father Heart disease Brother Cancer Son No problems noted. Son No problems noted. Son No problems noted. 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 Cognitive needs: No Hearing needs: No Vision needs: No Telehealth Telehealth Telehealth Platform: Telephone Location of provider rendering services: other Location of patient: address on file Patient Identification confirmed using: Name, : Yes Telehealth method: voice only Patient verbally consented to treatment: Yes Patient verbally consented to billing insurance company: Yes Patient informed of any privacy concerns related to visit: Yes Minutes spent on Phone/Video with Pt.: 16 Assessment & Plan Assessment & Plan (1) Overweight: Code(s): E66.3 - Overweight Category: Medical (2) S/P laparoscopic sleeve gastrectomy: Code(s): Z98.84 - Bariatric surgery status Category: Medical (3) Excess skin: Code(s): L98.7 - Excessive and redundant skin and subcutaneous tissue Category: Medical Plan Pt struggling with weight loss, trying to follow high protein meal plan, but limited in ability to exercise due to her care of her son. Pt is interested in starting GLP1. Reviewed contraindications, discussed dosing. Discussed need for adequate protein intake while on GLP1s as well as frequent communication with our office. Pt will check in with me weekly and is aware that subsequent Rx will be dependent on frequent communication. Clotrimazole ointment ordered for rashes of excess skin. RTC 6w. Medications: New tirzepatide (weight loss) (Zepbound) for 4 weeks 2.5 mg (0.5 mL) subcut QWEEK 2 mL 0RF clotrimazole 1% 1 appl topical BID 45 grams 3RF
[2024-09-21 11:41] VITALS: BMI 30.7
--- OUTSIDE RECORDS SUMMARY | 2024-09-21 13:21 | XMS_ITS | Clinical Summary ---
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 Name Role Phone JeffJohnny Jaiden WERNER Primary Care Provider Surgical History Surgery Date Site/Laterality Comments SECTION PROCEDURE: HISTORICAL DELIVERY TONSILLECTOMY ADENOIDECTOMY, BILATERAL MYRINGOTOMY AND TUBES PROCEDURE: [place] TONSILLECTOMY & ADENOIDECTOMY <AGE 13 OTHER SURGICAL HISTORY 11/2022 PROCEDURE: HISTORY OTHER; COMMENT: bariatric surgery Medical History Medical History Date Comments Chlamydia contact, treated DX:Ch lamydia contact, treated Bipolar 1 disorder (CMS/HCC) DX: Bipolar 1 disorder ([facility]) Learning disability DX:Learning disability Obese 12/26/2018 DX:Obese; COMMEN T: bmi 41 Asthma DX:Asthma Cigarette smoker td DX:Cigarette sm oker HSV-2 seropositive 2015 DX:HSV-2 sero positive; COMMENT: pt denies outbreaks Chronic hypertension DX:Chronic hypertension; COMMENT: lisinopril in the past Family History Medical History Relation Name Comments Lung cancer Brother Hypertension Father Stomach cancer Maternal Grandfather Other: Other Mother stroke, cardiom yopathy, htn, prediabetic Relation Name Status Comments Brother Father Alive Maternal Grandfather Mother Alive Social History Tobacco Use Types Packs/Day Years Used Date Smoking Tobacco: Former Smokeless Tobacco: Current Alcohol Use Standard Drinks/Week Comments No 0 (1 standard drink = 0.6 oz pur e alcohol) Comments Unknown Sex and Gender Information Value Date Recorded Sex Assigned at Not on file Legal Sex Female 8:53 AM EDT Gender Identity Not on file Sexual Orientation Not on file Obstetrics History Last Filed Vital Signs Vital Sign Reading Time Taken Comments Blood Pressure 131/98 01/27/2024 9:00 AM EDT Pulse 103 01/27/2024 9:00 AM EDT Temperature - - Respiratory Rate - - Oxygen Saturation - - Inhaled Oxygen Concentration - - Weight 83.3 kg (183 lb 9.6 oz) 01/27/2024 9:00 A M EDT Height 167.6 cm (5' 6 ) 12/27/2023 11:37 AM EDT Body Mass Index 29.63 12/27/2023 11:37 AM EDT Plan of Treatment Health Maintenance Due Date Last Done Comments DTaP,Tdap,and Td Vaccines (1 - Tdap) 2010 Hepatitis B Vaccines (1 of 3 - 19+ 3-dose series) 2010 Cholesterol Screening (Lipid Panel) 01/20/2024 Depression Screening 01/20/2024 Hepatitis C Screening 01/20/2024 Social Influencers of Health Screening 01/20/2024 COVID-19 Vaccine ( - 2023-2 5 season) 2024 Influenza Vaccine (#1) 2024 Cervical Cancer Screening: P ap Smear 12/26/2026 12/27/2023, 01/20/2019 HIV Screening Completed 01/21/2024 HIB Vaccines Aged Out No longer eligi ble based on patient's age to complete this topic HPV Vaccines Aged Out No longer eligi ble based on patient's age to complete this topic Hepatitis A Vaccines Aged Out No long er eligible based on patient's age to complete this topic IPV Vaccines Aged Out No longer eligi ble based on patient's age to complete this topic MMR Vaccines Aged Out No longer eligi ble based on patient's age to complete this topic Meningococcal ACWY Vaccine Aged Out N o longer eligible based on patient's age to complete this topic Meningococcal B Vacine Aged Out No lo nger eligible based on patient's age to complete this topic Pneumococcal Vaccine: Pediatrics (0 to 5 Years) and At-Risk Patients (6 to 64 Years) Aged Out No longer eligible b ased on patient's age to complete this topic RSV Immunization Patients Under 20 months Aged Out No longer eligible b ased on patient's age to complete this topic Varicella Vaccines Aged Out No longer eligible based on patient's age to complete this topic Procedures Procedure Name Priority Date/Time Associated Diagnosis Comments PAP SMEAR Routine 12/27/2023 from Last 3 Months or Most Recently Relevant to Health Maintenance Results * Pap smear (12/27/2023) 12/27/2023 Narrative HISTORICAL TESTING LAB RESULTING AGENCY - 01/10/2024 12:45 PM EDT [id number]: THIS REPORT WAS AMENDED TO CORRECT THE PATIENT'S ORDER #. THE DIAGNOSIS REMAINS UNCHANGED. THINPREP PAP, IMAGED: LOW-GRADE SQUAMOUS INTRAEPITHELIAL LESION (LSIL) . MARK HOWELL M.D. , PATHOLOGIST (CASE ELECTRONICALLY SIGNED 01 10 2024) RESULT OF APTIMA HIGH RISK HPV ASSAY: HIGH RISK HPV: ??POSITIVE (SEROTYPES 16,18,31,33,35,39,45,51,52,56,58,59,66,68) RESULTS OF APTIMA HPV 16 AND 18/45 GENOTYPE ASSAY: HPV 16: ??NEGATIVE HPV 18/45: ??NEGATIVE COMPLETED ON 2024-01-02 ADEQUACY: SATISFACTORY ENDOCERVICAL/TRANSFORMATION ZONE COMPONENT PRESENT. SOURCE: THINPREP PAP HPV ANY DX: ??REFLEX 16 AND 18, CERVICAL, IMAGED CLINICAL INFORMATION: HPV ANY DIAGNOSIS, Z12.4, PAP HX: NEG 2020, LMP 12/08/2023. Domitila Cast [facility] LAB CYTOLOGY ORDERABLES Edite d Result - Final HISTORICAL TESTING LAB RESULTING AGENCY from Last 3 Months or Most Recently Relevant to Health Maintenance Care Teams Jet Dyeing Machine Operator Relationship Specialty Start Date End Date Johnny Aguilar NP [address], [place] PCP - General 07/27/16
== END 2024-09-21 12:02 | disposition home or self-care (01) ==
LOC: HO.HBS 11:38
PROVIDERS: PCP Nurse Practitioner Family; Visit Provider Physician Assistant Surgical
DX: E66.811 Obesity, class 1 (principal); Z68.30 Body mass index [BMI] 30.0-30.9, adult; Z98.84 Bariatric surgery status; L98.7 Excessive and redundant skin and subcutaneous tissue
CPT/HCPCS: 99214; G2211

== ENCOUNTER 2024-10-27 10:42 | Outpatient (AMB) | payer OTHER, SELFPAY ==
--- NOTE | 2024-10-27 11:10 | AM.OFFWIN_ITS ---
Intake Vital Signs 10/27/24 11:12 Height 5 ft 6 in Weight 186 lb BMI 30.0 BP 140/80 H Blood Pressure Location Rt brachial Position Sitting Pulse 78 Pulse Source Pulse Oximeter Temp 98.1 F Temp Source Oral Pulse Oximetry (%) 98 Oxygen Delivery Method Room Air Intake Visit Reasons: EP Bleeding from rectum & stomach paiin Intake Note: Patient here for rectum bleeding, stomach pain that has been present since yesterday. she states that the blood is just dripping out . Patient Tobacco Use Status: Former Tobacco user Allergies mushroom Allergy (Intermediate, Verified 10/27/24 11:12) rash/swelling Do you need a note to return to daycare/school/sports/work: Yes HPI HPI Comments History of Present Illness Details This is a 34-year-old female with a past medical history of hypertension not currently medicated and gastric sleeve surgery 2 years ago currently maintained on Zepbound presenting for evaluation of this left lower quadrant abdominal pain and bright red blood after bowel movements that started yesterday. Patient states she has had abdominal pain and bloating over the past 6 weeks coupled with nausea and fatigue. Patient states she had a bowel movement yesterday after using senna which resulted in a micha like stool with bright red blood including a lot of blood clots in the toilet bowl. Patient denies having any fevers or chills and has not yet vomited but continues to feel nauseous. Patient has taken Tylenol only without relief of her discomfort or rectal bleeding. [facility] Medical History Physical exam Arthritis Asthma HTN (hypertension) Morbid obesity STI (sexually transmitted infection) Dysuria Dizziness Migraine with aura Hair loss Plantar fasciitis, bilateral Tendonitis of ankle, right Plantar fasciitis of right foot Right ankle pain Encounter for pre-employment examination Acute frontal sinusitis Asthma exacerbation Surgical History S/P laparoscopic sleeve gastrectomy H/O colonoscopy History of ear surgery Hx of section History of surgery on lower extremity Family History Mother Stroke Hypertension Lupus Father Heart disease Brother Cancer Son No problems noted. Son No problems noted. Son No problems noted. 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 Cognitive needs: No Hearing needs: No Vision needs: No Review of Systems Const All systems reviewed & are unremarkable except as noted in HPI and below Reports no additional complaints Eyes Reports no additional complaints ENT Reports no additional complaints Card Reports no additional complaints Resp Reports no additional complaints GI Reports no additional complaints, Reports abdominal pain (LLQ), Reports bloating, Denies dyspepsia, Denies diarrhea, Denies loose stools, Reports nausea and Denies vomiting Reports no additional complaints Musc Reports no additional complaints Neuro Reports no additional complaints Psych Reports no additional complaints Endo Reports no additional complaints Anthony/Lymph Reports no additional complaints Aller/Immun Reports no additional complaints Physical Exam Vital Signs: Last Vital Signs Temp 98.1 F 10/27/24 11:12 Pulse 78 10/27/24 11:12 BP 140/80 H 10/27/24 11:12 Pulse Ox 98 10/27/24 11:12 Oxygen Delivery Method Room Air 10/27/24 11:12 BMI result Body Mass Index 30.0 Patient is afebrile. Const General: cooperative, healthy appearing, comfortable, no acute distress, well developed, alert, awake and Physically active; No ill appearing Nutritional Appearance: average body habitus Orientation/consciousness: patient oriented x3 Limitations: no limitations Cardio Rate: regular rate Rhythm: regular rhythm GI Palpation (GI): Soft to palpation, Tenderness to palpation present (GI) (diffuse abdominal tenderness with focal LLQ tenderness) with no rebound tenderness and Guarding due to palpation present (GI) in the LLQ Rectal Exam - Female: deferred General: Yes bladder normal to palpation and Yes no CVA tenderness Bimanual exam- vagina & uterus: bladder normal to palpation Back/Spine/Pelvis Back: no CVA tenderness Neuro General: patient oriented x3 Psych Appearance: grossly normal Mental Status: mental status grossly normal Insight: Good insight present (Psych) Judgement: Good judgement present (Psych) Assessment & Plan Assessment & Plan (1) LLQ abdominal pain: Comment: Patient's clinical exam coupled with her history could be consistent with acute diverticulitis. Patient will go to the emergency department for further ev aluation and care. Code(s): R10.32 - Left lower quadrant pain Plan: Expect called to [facility] at [facility] ED 12:08. Patient to go to ED via private vehicle. (2) Rectal bleeding: Comment: Patient declined rectal examination here in the walk-in clinic. Code(s): K62.5 - Hemorrhage of anus and rectum Plan: Expect called to [facility] at [facility] ED 12:08. Patient to go to ED via private vehicle. Coding Level of Care Code Est Pt Level 3 (20630) Diagnoses LLQ abdominal pain R10.32 Rectal bleeding K62.5 Time Spent (min) 20
[2024-10-27 11:12] VITALS: BP 140/80; PULSE 78; TEMP 36.7; O2SAT 98
--- OUTSIDE RECORDS SUMMARY | 2024-10-27 12:21 | XMS_ITS | Clinical Summary ---
Author Organization Patient Business Ser [facility] Address [address] [place] [address] Care Team Providers Care Supervisor Drawing Name Role Phone Johnny Aguilar NP Primary Care Provider [phone] Surgical History Surgery Date Site/Laterality Comments SECTION PROCEDURE: HISTORICAL DELIVERY TONSILLECTOMY ADENOIDECTOMY, BILATERAL MYRINGOTOMY AND TUBES PROCEDURE: [place] TONSILLECTOMY & ADENOIDECTOMY <AGE 13 OTHER SURGICAL HISTORY 11/2022 PROCEDURE: HISTORY OTHER; COMMENT: bariatric surgery Medical History Medical History Date Comments Chlamydia contact, treated DX:Ch lamydia contact, treated Bipolar 1 disorder ([facility] V24, [facility] V28) DX:Bipolar 1 disorder ([facility]) Learning disability DX:Learning disability Obese 12/26/2018 DX:Obese; [...] Depression Screening 01/20/2024 Hepatitis C Screening 01/20/2024 Medicare Annual Wellness Visit 01/20/2024 Social Influencers of Health Screening 01/20/2024 COVID-19 Vaccine ( - 2023-2 5 season) 2024 Influenza Vaccine (Season Ended) 2025 Cervical Cancer Screening: P ap Smear 12/26/2026 [...] age to complete this topic Meningococcal B Vaccine Aged Out No l onger eligible based on patient's age to complete [...] RESULTING AGENCY - 01/10/2024 12:45 PM EDT [id number]: THIS REPORT WAS AMENDED TO CORRECT THE [...] HX: NEG 2020, LMP 12/08/2023. Domitila Cast [facility] LAB CYTOLOGY ORDERABLES Edite d Result - Final HISTORICAL TESTING LAB RESULTING AGENCY from Last 3 Months or Most Recently Relevant to Health Maintenance Insurance [facility] MEDICARE Member Subscriber Plan / Payer (Ef fective 2016-Present) Name:Christina Flanagan Relation to Subscriber:Self Name:Christina Flanagan Payer ID:[id number] Group ID:[id number] Type:Not on file Address: [facility] [address] [id number] Care Teams Supervisor Drawing Relationship Specialty Start Date End Date Johnny Aguilar NP [address] [facility] [place] PCP - General 07/27/16
== END 2024-10-27 13:04 | disposition home or self-care (01) ==
PROVIDERS: PCP Nurse Practitioner Family; Visit Provider Physician Assistant
DX: R10.32 Left lower quadrant pain (principal); K62.5 Hemorrhage of anus and rectum

== ENCOUNTER → 2024-10-27 10:42 | Outpatient (BNVA) | payer OTHER, SELFPAY | PROVIDERS: PCP Nurse Practitioner Family; Visit Provider Physician Assistant | DX: Z13.89 Encounter for screening for other disorder (principal) ==

== ENCOUNTER 2024-10-27 12:30 | Emergency (ER) | payer OTHER, SELFPAY ==
--- NOTE | ~2024-10-27 | CT_ITS ---
CLINICAL HISTORY: LLQ RLQ pain, bloody stools Exam: CT Abdomen and Pelvis With IV Contrast Comparison: None Findings: The liver density is homogeneous. The right lobe of the liver is elongated. No biliary abnormalities The spleen is normal in size No pancreatic ductal dilatation No hydronephrosis there is a 2 mm nonobstructing calculus in a lower pole calyx of the left kidney Normal bowel caliber. There has been gastric surgery with suture line consistent with gastric sleeve No secondary signs of acute appendicitis No free fluid/free air No vascular abnormalities Bladder outline is smooth. Uterus is normal in size No suspicious skeletal lesions. Impression : 2 mm nonobstructing calculus in the left kidney. No urinary tract obstruction. This document has been electronically signed by: Aron Rico MD on 10/27/2024 18:57:19
[2024-10-27 12:54] VITALS: BP 145/98; PULSE 96; RESP 20; TEMP 37; O2SAT 100; BMI 22.9
--- NOTE | 2024-10-27 12:58 | ED.GENADULT ---
HPI - General Adult General Chief complaint: Abdominal Pain Stated complaint: Abd pain Time Seen by Provider: 10/27/24 15:43 Source: patient Mode of arrival: ambulatory Limitations: no limitations History of Present Illness ED Provider: BRENDA ARCE PA-C HPI narrative: 34 year old female with pmhx significant for HTN, asthma, arthritis, migraine, mood disorder presents to the ED today for evaluation of nausea, vomiting, diarrhea and abdominal pain. Admits to 4-5 bloody soft BMs that began yesterday. Her last bowel movement was around 1700 last night. Reports LLQ pain radiating to her RLQ over the last month. Describes this as sharp, achy and worse after eating. Reports associated abdominal bloating with eating. Trialed tylenol/ heat pack without relief. Surgical hx includes gastric sleeve in 2022 and sections x2. She is on weekly Zepbound injections for weight loss. Reports nausea for approximately 3 days after injections. Admits to one episode of vomiting one week ago. Denies fever, chills, constipation, urinary symptoms, vaginal discharge/bleeding. Denies hx of hemorrhoids or diverticulitis. Related Data Home Medications ?Medication ?Instructions ?Recorded ?Confirmed tirzepatide (weight loss) 2.5 2.5 mg subcut QWEEK 10/27/24 mg/0.5 mL subcutaneous pen injector (Zepbound) Previous Rx's ?Medication ?Instructions ?Recorded albuterol sulfate 90 mcg/actuation 2 puff inhalation Q4-6H PRN 05/24/21 aerosol inhaler shortness of breath or wheezing #18 grams albuterol sulfate 2.5 mg/3 mL 2.5 mg (3 mL) inhalation QID PRN 06/22/21 (0.083 %) solution for nebulization shortness of breath or wheezing 90 days #180 mL calcium carbonate 200 mg PO DAILY #90 tabs 02/12/23 docusate sodium 100 mg capsule 100 mg PO DAILY 30 days #30 caps 04/03/23 vitamin B complex 1 tab PO DAILY 90 days #90 tabs 05/23/23 cholecalciferol (vitamin D3) 125 125 mcg PO DAILY 90 days #90 caps 12/13/23 mcg (5,000 unit) capsule cane #1 ea 04/01/24 zinc gluconate 30 mg tablet 30 mg PO DAILY #90 tabs 10/19/24 sennosides 8.6 mg tablet (senna) 17.2 mg (2 x 8.6 mg) PO BEDTIME 10/27/24 PRN for constipation #90 tabs Allergies Allergy/AdvReac Type Severity Reaction Status Date / Time mushroom Allergy Intermediate rash/swelli Verified 10/27/24 12:55 ng Review of Systems Review of Systems: Yes all other systems are reviewed and are negative PMFSH Past Medical History Attestation statement: The following information was validated with the patient. Source: old records reviewed and nursing notes reviewed Medical History Physical exam Arthritis Asthma HTN (hypertension) Morbid obesity STI (sexually transmitted infection) Dysuria Dizziness Migraine with aura Hair loss Plantar fasciitis, bilateral Tendonitis of ankle, right Plantar fasciitis of right foot Right ankle pain Encounter for pre-employment examination Acute frontal sinusitis Asthma exacerbation Surgical History S/P laparoscopic sleeve gastrectomy H/O colonoscopy History of ear surgery Hx of section History of surgery on lower extremity Family History Family History Mother Stroke Hypertension Lupus Father Heart disease Brother Cancer Son No problems noted. Son No problems noted. Son No problems noted. Social History Social History Household Members: Family Household Members Other:: mom, kids Housing: Apartment Are you a primary technical healthcare consultant to a significant other at home: Yes (minor children) Do you presently have visiting nurse or other home services: No Alcohol intake: never Patient Tobacco Use Status: Former Tobacco user Tobacco use type: Pipe and Smokeless Tobacco Years Smoked: currently vaping-advised to refrain pre-op Smoked in Last 30 Days: Yes e-Cigarette/Vaping Use: Currently Using Second Hand Smoke Exposure: No Use of substances other than those prescribed or required for medical reasons: No Substance Use Type: Unknown Advance Directives: No Advance Directives Information Provided: Yes Patient : No service: No Current occupational status: employed 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 Cognitive needs: No Hearing needs: No Vision needs: No Physical Exam ED Vital Signs: Vital Signs - 24 hr 10/27/24 12:54 10/27/24 14:43 10/27/24 15:59 Temperature 98.6 F 98.6 F 98.8 F Pulse Rate 96 83 98 Respiratory Rate 20 20 14 Blood Pressure 145/98 H 154/86 H 143/85 H Pulse Oximetry 100 100 100 Oxygen Delivery Method Room Air Room Air Room Air 10/27/24 16:39 10/27/24 17:42 Temperature 98.8 F Pulse Rate 88 Respiratory Rate 12 14 Blood Pressure 133/86 Pulse Oximetry 100 Oxygen Delivery Method Room Air BMI result Body Mass Index 22.9 Hypertensive, afebrile General: Well appearing, in no acute distress. Skin: Warm, dry, intact. No rashes or lesions. Head: Normocephalic, atraumatic. EENT: Hearing is intact b/l. Conjunctiva clear. PERRLA. EOM intact. Moist mucous membranes.? Neck: Supple without LAD Cardiac: Chest wall symmetric. RRR Lungs: Normal respiratory effort without accessory muscle use. CTA bilaterally Abdomen: soft, nondistended, tender to palpation of right lower quadrant and left lower quadrant without rebound tenderness or guarding. Negative Hinds's sign. Active bowel sounds throughout. Rectal exam performed with Aliza office machine technician present in room to fabricating machine operator. Erasto SHARP student at bedside to observe with patient's consent. Normal rectal sphincter tone. No external masses or lesions. No palpable stool in rectal vault. OBS negative. Ext: Upper and lower extremities atraumatic, without tenderness, deformity, swelling or erythema Neuro: AOx3. Normal speech. Ambulating with steady gait. Psych: Appropriate mood and affect. Responds appropriately to questions. Course Course Course Narrative: RME: 33 year with pmh of HTN, and mood disorder female presents to the ED for abdominal pain and rectal bleeding patient is sent from urgent care. Positive for abdominal tenderness. labs ordered. Reevaluation(s) Reevaluation #1: 1649 -- CBC without leukocytosis or left shift. H&H stable and above transfusion threshold. Chemistry without acute electrolyte abnormality requiring intervention. No SYLVESTER. Liver function normal. Beta quant undetectable. Not . OBS is negative. given abdominal tenderness, will scan patient. > medicated with morphine for 8/10 pain. IV fluids running. CT abdomen/pelvis pending. 1800 -- urine without infection. ct a/p pending. patient stable at the end of my shift. sign out given to rosina ambrose pending image read and disposition. Reevaluation #2: Patient's CT scan unremarkable for acute pathology. I discussed this with the patient, given her rectal bleeding she will be referred to GI. Time: 19:23 Medications Administered Discontinued Medications Generic Name Dose Route Start Last Admin Trade Name Branden PRN Reason Stop Dose Admin Sodium Chloride 1,000 mls @ 999 mls/hr 10/27/24 16:30 10/27/24 18:49 Ns IV 10/27/24 17:30 Infused .Q1H1M SOFIYA Infusion Morphine Sulfate 4 mg 10/27/24 16:16 10/27/24 16:39 Morphine Sulfate 4 Mg/Ml Cartridge IVPUSH 10/27/24 16:17 4 mg ONCE ONE Administration Protocol Medical Decision Making Medical Decision Making [facility] Narrative: 34 year old female with pmhx significant for HTN, asthma, arthritis, migraine presents to the ED today for evaluation of nausea, vomiting, diarrhea and abdominal pain. Hypertensive, vitals otherwise WNL. She is nontoxic appearing in no acute distress. On exam, abdomen is soft, nondistended, tender to palpation of right lower quadrant and left lower quadrant without rebound tenderness or guarding. Negative Hinds's sign. Active bowel sounds throughout. Rectal exam performed with Aliza NEAL tech present in room to coy. Erasto SHARP student at bedside to observe with patient's consent. Normal rectal sphincter tone. No external masses or lesions. No palpable stool in rectal vault. OBS negative. Differential diagnoses: appendicitis, diverticulitis, diverticulosis, UTI, IUP, constipation, GI bleed, hemorrhoids Abdominal exam without peritoneal signs. No evidence of acute abdomen at this time. Well appearing. Low suspicion for acute hepatobiliary disease (including acute cholecystitis), acute infectious processes (pneumonia, hepatitis, pyelonephritis, PID, TOA), vascular catastrophe, bowel obstruction or viscus perforation, ovarian cyst/ rupture/ torsion, ectopic. Presentation not consistent with other acute, emergent causes of abdominal pain at this time. Plan: labs, UA, OBS, CT AP, pain control, fluids, serial reassessment Differential Diagnosis Differential Diagnoses: The differential diagnosis associated with the presentation includes As above Admission/Observation not indicated Lab Data [facility] Lab Attestation statement: I reviewed the patient's lab results. As above 10/27/24 14:21 10/27/24 14:21 Labs: Lab Results 10/27/24 10/27/24 10/27/24 Range/Units 14:21 16:37 17:56 WBC 6.2 (4.8-10.8) X10*3/uL RBC 4.05 L (4.20-5.50) X10*6/uL Hgb 12.0 (12.0-16.0) g/dl Hct 33.9 L (37.0-47.0) % MCV 83.7 (80.0-98.0) fL MCH 29.6 (27.0-33.0) pg MCHC 35.4 H (31.0-35.0) g/dl RDW 12.1 (11.0-16.0) % Plt Count 275 (160-400) X10*3/uL MPV 10.0 (9.4-12.3) fL Immature Gran % (Auto) 0.2 (0.0-0.4) % Neut % (Auto) 59.6 (45-73) % Lymph % (Auto) 34.2 (20-40) % Barber % (Auto) 4.4 (2-11) % Eos % (Auto) 1.1 (0-4) % Baso % (Auto) 0.5 (0-2) % Lymph # (Auto) 2.1 (1.2-4.9) X10*3/uL Barber # (Auto) 0.3 (0.1-1.2) X10*3/uL Eos # (Auto) 0.1 (0.0-0.4) X10*3/uL Baso # (Auto) 0.0 (0.0-0.2) X10*3/uL Abs Immat Gran (auto) 0.01 (0.00-0.03) X10*3/uL Absolute Neuts (auto) 3.7 (2.0-8.3) x10*3/uL Absolute Nucleated RBC 0.000 (0.0-0.012) X10*3/uL Nucleated RBC % (auto) 0.0 (0.0-0.2) /100WBC Sodium 141 (135-145) mmol/L Potassium 3.5 (3.3-5.1) mmol/L Chloride 108 (96-108) mmol/L Carbon Dioxide 26 (22-29) mmol/L Anion Gap 11 L (12-20) BUN 11 (9-16) mg/dL Creatinine 0.62 (0.5-1.4) mg/dL Estim Creat Clear Calc 120.8 Estimated GFR > 60 Random Glucose 82 (60-115) mg/dL Calcium 9.5 (8.4-10.2) mg/dL Total Bilirubin 0.6 (0.0-1.0) mg/dL AST 18 (5-31) U/L ALT 15 (0-31) U/L Alkaline Phosphatase 68 (39-117) U/L Total Protein 7.5 (6.5-8.0) g/dL Albumin 4.6 (3.5-5.0) g/dL Lipase 38 (8-78) U/L Beta HCG, Quant < 2 mIU/mL Urine Color Yellow Urine Appearance Clear Urine pH 8.0 (5.0-9.0) Ur Specific [place] >= 1.030 H (1.005-1.025) Urine Protein Negative (Neg-Trace) mg/dL Urine Glucose (UA) Negative (Negative) mg/dL Urine Ketones Negative (Negative) mg/dL Urine Blood Negative (Negative) Urine Nitrite Negative (Negative) Ur Leukocyte Esterase Negative (Negative) Stool Occult Blood NEGATIVE (NEGATIVE) Independent Interpretation I performed an independent interpretation of an: CT Scan Interpretation: CT abdomen/pelvis without bowel obstruction Radiology Impression Discussion of test interpretation with radiology: I have reviewed the radiologist's reading. Radiologist Impression: Procedure(s): CT abdomen pelvis w IV con Accession Number(s): [id number] cc: Johnny Aguilar [facility]-; Brenda Arce~ Report Number: [id number]: Total DLP = 616.00 mGy-cm CLINICAL HISTORY: LLQ RLQ pain, bloody stools Exam: CT Abdomen and Pelvis With IV Contrast Comparison: None Findings: The liver density is homogeneous. The right lobe of the liver is elongated. No biliary abnormalities The spleen is normal in size No pancreatic ductal dilatation No hydronephrosis there is a 2 mm nonobstructing calculus in a lower pole calyx of the left kidney Normal bowel caliber. There has been gastric surgery with suture line consistent with gastric sleeve No secondary signs of acute appendicitis No free fluid/free air No vascular abnormalities Bladder outline is smooth. Uterus is normal in size No suspicious skeletal lesions. Impression : 2 mm nonobstructing calculus in the left kidney. No urinary tract obstruction. External Record Review External record reviewed: Inpatient record Prescription Management I considered prescription management with: Pain Medication Social Determinants Patient?s care significantly limited by Social Determinants of Health including: Other Social Determinant of Health Critical Care Time Critical Care Time Critical Care Time: Yes Total Critical Care Time: 31 Attestation: Critical care time in the amount of 31 minutes has been provided to the patient in terms of direct patient care, frequent reevaluation on IV morphine, review and interpretation of medical data and results, and management of potentially life-threatening conditions. This is all outside of any medical procedures. Discharge Plan Discharge Clinical Impression: Abdominal pain, Rectal bleeding Patient Disposition: Home, Self-Care Instructions: Rectal Bleeding (ED), Abdominal Pain (ED) Additional Instructions: Your workup in the ER today was reassuring. This includes your blood work, urinalysis and your CT scan. I do recommend following up with a GI doctor for colonoscopy given the rectal bleeding Follow-up with your primary doctor, return for new or worsening symptoms Prescriptions: No Action albuterol sulfate 2.5 mg /3 mL (0.083 %) solution for nebulization 2.5 mg inhalation QID PRN (Reason: shortness of breath or wheezing) 90 Days Qty: 180 0RF calcium carbonate 200 mg calcium (500 mg) tablet,chewable 200 mg PO DAILY Qty: 90 0RF vitamin B complex Tablet 1 tab PO DAILY 90 Days Qty: 90 0RF cholecalciferol (vitamin D3) 125 mcg (5,000 unit) capsule 125 mcg PO DAILY 90 Days Qty: 90 2RF (DME) cane Device See Rx Instructions .Route Qty: 1 0RF Rx Instructions: As directed zinc gluconate 30 mg tablet 30 mg PO DAILY Qty: 90 0RF sennosides [senna] 8.6 mg tablet 17.2 mg PO BEDTIME PRN (Reason: for constipation) Qty: 90 0RF albuterol sulfate 90 mcg/actuation HFA aerosol inhaler 2 puff inhalation Q4-6H PRN (Reason: shortness of breath or wheezing) Qty: 18 0RF docusate sodium 100 mg capsule 100 mg PO DAILY 30 Days Qty: 30 2RF Zepbound 2.5 mg/0.5 mL pen injector 2.5 mg subcut QWEEK Referrals: Christine Fairbanks MD [Physician] - (rectal bleeding) Stand Alone Forms: Work/School Release Interventions: ED Discharge Assessment Last Done: 10/27/24 19:30 Discharge Date/Time: 10/27/24 19:30 Print Language: Montenegrin
[2024-10-27 14:23] LABS: MANUAL DIFF FLAG NO
[2024-10-27 14:26] LABS: Basophils Percent Auto 0.5 % (0-2); Eosinophils Absolute Auto 0.1 X10*3/uL (0.0-0.4); Eosinophils Percent Auto 1.1 % (0-4); Hematocrit 33.9 % (37.0-47.0); Imm Gran Abs Auto 0.01 X10*3/uL (0.00-0.03); Imm Gran Pct Auto 0.2 % (0.0-0.4); Lymphocytes Absolute Auto 2.1 X10*3/uL (1.2-4.9); Lymphocytes Percent Auto 34.2 % (20-40); Mean Corpuscular HGB Conc 35.4 g/dl (31.0-35.0); Mean Corpuscular Hemoglobin 29.6 pg (27.0-33.0); Mean Corpuscular Volume 83.7 fL (80.0-98.0); Monocytes Absolute Auto 0.3 X10*3/uL (0.1-1.2); Monocytes Percent Auto 4.4 % (2-11); Neutrophils Absolute Auto 3.7 x10*3/uL (2.0-8.3); Neutrophils Percent Auto 59.6 % (45-73); Platelet Count 275 X10*3/uL (160-400); Red Blood Count 4.05 X10*6/uL (4.20-5.50); Red Cell Distribution Width 12.1 % (11.0-16.0); White Blood Count 6.2 X10*3/uL (4.8-10.8)
[2024-10-27 14:43] VITALS: BP 154/86; PULSE 83; RESP 20; TEMP 37; O2SAT 100
[2024-10-27 14:54] LABS: Alanine Aminotransferase 15 U/L (0-31); Albumin Level 4.6 g/dL (3.5-5.0); Anion Gap 11 (12-20); Aspartate Amino Transferase 18 U/L (5-31); Bilirubin Total 0.6 mg/dL (0.0-1.0); Blood Urea Nitrogen 11 mg/dL (9-16); Calcium 9.5 mg/dL (8.4-10.2); Carbon Dioxide 26 mmol/L (22-29); Chloride 108 mmol/L (96-108); Creatinine Clr Calc Pharmacy 120.8; Estimated Glomerular Filt Rate > 60; Glucose Random 82 mg/dL (60-115); HCG Quantitative < 2 mIU/mL; Potassium 3.5 mmol/L (3.3-5.1); Sodium 141 mmol/L (135-145); Total Protein 7.5 g/dL (6.5-8.0)
[2024-10-27 15:59] VITALS: BP 143/85; PULSE 98; RESP 14; TEMP 37.1; O2SAT 100
[2024-10-27 16:39] VITALS: RESP 12
[2024-10-27] MEDS: 0.9 % Sodium Chloride 1,000 ML 999 ML IV (16:39)
[2024-10-27] MEDS: Morphine Sulfate 4 MG/ML CARTRIDGE IVPUSH (16:39)
--- NOTE | 2024-10-27 16:44 | PC.NURSE ---
Patient A&O x 4. Patient hypertensive at times but all other VSS. Denies SOB and chest pain. Patient presents to ED w/ abdominal pain, pain is located in LLQ. Abdomen soft, non distended but tender to palpation, +bowel sounds. Pain started approx a month ago but symptoms have been increasing over the last few days. Patient medicated with Iv morphine, effectiveness pending. Patient reports have dark red blood in stool yesterday 10/26/24, but no other bleeding noted. Patient reports being nauseous at times, last vomited 10/20/24, no vomiting at this time. 18G RAC patent currently running 1L NaCl. Call napier in reach.
[2024-10-27 16:45] LABS: OBS Int Ctl Valid YES; OBS1 NEGATIVE (NEGATIVE)
[2024-10-27 17:10] LABS: Lipase 38 U/L (8-78)
[2024-10-27 17:30] LABS: Alkaline Phosphatase 68 U/L (39-117)
[2024-10-27 17:42] VITALS: BP 133/86; PULSE 88; RESP 14; TEMP 37.1; O2SAT 100
--- NOTE | 2024-10-27 17:44 | PC.NURSE ---
Patient went for CT results pending. Patient uses restroom, independent with ambulation. Strong gait noticed. Patients abdomen pain remains the same. Pt continuing IV fluids.
[2024-10-27 18:03] LABS: Appearance Urine Clear; Color Urine Yellow; Glucose Urine UA Negative (Negative); Leukocyte Esterase Urine Negative (Negative); Nitrite Urine Negative (Negative); Specific Gravity - Urine >= 1.030 (1.005-1.025); Urine Blood Negative (Negative); Urine Ketones Negative (Negative); Urine Protein Negative (Neg-Trace)
[2024-10-27 19:30] VITALS: BP 133/86; PULSE 88; RESP 14; TEMP 37.1; O2SAT 100
== END 2024-10-27 19:30 | disposition home or self-care (01) ==
PROVIDERS: Physician Assistant; Physician Assistant Medical; Emergency Provider Emergency Medicine Emergency Medical Services; PCP Nurse Practitioner Family
DX: K62.5 Hemorrhage of anus and rectum (principal); R10.9 Unspecified abdominal pain; N20.0 Calculus of kidney; Z79.899 Other long term (current) drug therapy; Z87.891 Personal history of nicotine dependence
CPT/HCPCS: 36415; 74177; 80053; 81003; 82272; 83690; 84702; 85025; 96361; 96374; 99212; 99284; 99285; J2270

== ENCOUNTER → 2024-10-27 16:14 | Outpatient (BNV) | payer OTHER, SELFPAY | PROVIDERS: Emergency Provider Emergency Medicine Emergency Medical Services; PCP Nurse Practitioner Family; Visit Provider Radiology Diagnostic Radiology | DX: N20.0 Calculus of kidney (principal) | CPT/HCPCS: 74177 ==

== ENCOUNTER 2024-11-11 10:08 | Outpatient (AMB) | payer OTHER, SELFPAY ==
--- NOTE | 2024-11-11 10:03 | MHC.OFFVISWM ---
VS Expanded 11/11/24 10:06 Height 5 ft 6 in Weight 182 lb BMI 29.4 Intake Visit Reasons: TELEPHONE PO LSG 12/21/22 Allergies mushroom Allergy (Intermediate, Verified 10/27/24 12:55) rash/swelling Medication List - Last Reconciled 11/11/24 by LILA Hernandez albuterol sulfate 90 mcg/actuation 2 puffs inhalation Q4-6H PRN albuterol sulfate 2.5 mg (3 mL) inhalation QID PRN 90 days calcium carbonate 200 mg PO DAILY cane As directed cholecalciferol (vitamin D3) 125 mcg PO DAILY 90 days clotrimazole 1% 1 appl topical BID docusate sodium 100 mg PO DAILY 30 days sennosides (senna) 17.2 mg (2 x 8.6 mg) PO BEDTIME PRN tirzepatide (weight loss) (Zepbound) 2.5 mg (0.5 mL) subcut QWEEK vitamin B complex 1 tab PO DAILY 90 days zinc gluconate 30 mg PO DAILY HPI Comments Details: This?is a?34?yo F who is s/p LSG 12/21/2022. Weight loss of 8lbs since last OV 09/21, after starting Zepbound. Was in the ER for abdominal pain and rectal bleeding, going to GI for colonoscopy. Present meal plan includes: 1 Fairlife shake, plus half shake or one protein bar, plus one meal max 8f/8f Exercise routine includes: has not been able to go to the gym- has a special needs child Interested in skin removal surgery- abdomen. Discussed with Dr. Dahl Gets a rash in skin folds and in belly button- has tried topical creams OTC as well as clotrimazole after last visit, but it comes back. When moisture collects here, it causes an unpleasant odor and she has to clean frequently, particularly in belly button. The rash is painful and itchy. Has to wear a tight compressive tank top tucked into waistband with underwear pulled up, to help support excess skin; otherwise, the excess skin is very uncomfortable. She even has to do this in summertime which is very uncomfortable. Activities of daily living are more difficult due to the excess skin, including walking, which is more uncomfortable due to heaviness of excess skin. [facility] Medical History Physical exam Arthritis Asthma HTN (hypertension) Morbid obesity STI (sexually transmitted infection) Dysuria Dizziness Migraine with aura Hair loss Plantar fasciitis, bilateral Tendonitis of ankle, right Plantar fasciitis of right foot Right ankle pain Encounter for pre-employment examination Acute frontal sinusitis Asthma exacerbation Surgical History S/P laparoscopic sleeve gastrectomy H/O colonoscopy History of ear surgery Hx of section History of surgery on lower extremity Family History Mother Stroke Hypertension Lupus Father Heart disease Brother Cancer Son No problems noted. Son No problems noted. Son No problems noted. 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 Cognitive needs: No Hearing needs: No Vision needs: No Telehealth Telehealth Telehealth Platform: Telephone Location of provider rendering services: other Location of patient: address on file Patient Identification confirmed using: Name, : Yes Telehealth method: voice only Patient verbally consented to treatment: Yes Patient verbally consented to billing insurance company: Yes Patient informed of any privacy concerns related to visit: Yes Minutes spent on Phone/Video with Pt.: 17 Assessment & Plan Assessment & Plan (1) Excess skin: Code(s): L98.7 - Excessive and redundant skin and subcutaneous tissue Category: Medical (2) Overweight: Code(s): E66.3 - Overweight Category: Medical (3) S/P laparoscopic sleeve gastrectomy: Code(s): Z98.84 - Bariatric surgery status Category: Surgical Plan Pt doing very well on Zepbound so far, trying to maintain a high protein meal plan. Will refill another month at 2.5mg per pt request. She requests additional clotrimazole ointment refill for excess skin. She is having issues of excess skin of abdomen resulting in frequent painful, malodorous rashes refractory to Rx topical treatment. ADLs are also affected and more difficult/uncomfortable due to the presence of the excess skin. RTC 2mo in person for physical exam of excess skin. Medications: New tirzepatide (weight loss) (Zepbound) 2.5 mg (0.5 mL) subcut QWEEK 2 mL 0RF clotrimazole 1% 1 appl topical BID 45 grams 3RF
[2024-11-11 10:06] VITALS: BMI 29.4
--- OUTSIDE RECORDS SUMMARY | 2024-11-11 11:37 | XMS_ITS | Clinical Summary ---
Author Organization Patient Business Ser [facility] Address [address] [place] [address] Care Team Providers Care Software Programmer Name Role Phone Johnny Aguilar NP Primary Care Provider Surgical History Surgery Date Site/Laterality Comments SECTION PROCEDURE: HISTORICAL DELIVERY TONSILLECTOMY ADENOIDECTOMY, BILATERAL MYRINGOTOMY AND TUBES PROCEDURE: [place] TONSILLECTOMY & ADENOIDECTOMY <AGE 13 OTHER SURGICAL HISTORY 11/2022 PROCEDURE: HISTORY OTHER; COMMENT: bariatric surgery Medical History Medical History Date Comments Chlamydia contact, treated DX:Ch lamydia contact, treated Bipolar 1 disorder ([facility] V24, [facility] V28) DX:Bipolar 1 disorder ([facility]) Learning disability DX:Learning disability Obese 12/26/2018 [...] RESULTING AGENCY - 01/10/2024 12:45 PM EDT [id number]: THIS REPORT WAS AMENDED TO CORRECT THE [...] HX: NEG 2020, LMP 12/08/2023. Domitila Cast [facility] LAB CYTOLOGY ORDERABLES Edite d Result - Final HISTORICAL TESTING LAB RESULTING AGENCY from Last 3 Months or Most Recently Relevant to Health Maintenance Insurance [facility] [employer] [employer] Member Subscriber Plan / Payer (Ef fective 2016-Present) Name:Christina Flanagan Relation to Subscriber:Self Name:Christina Flanagan Payer ID:[id number] Group ID:[id number] Type:Not on file Address: [facility] [address] [id number] Care Teams Software Programmer Relationship Specialty Start Date End Date Johnny Aguilar NP [address] [facility] [place] PCP - General 07/27/16
== END 2024-11-11 10:51 | disposition home or self-care (01) ==
LOC: HO.HBS 10:08
PROVIDERS: PCP Nurse Practitioner Family; Visit Provider Physician Assistant Surgical
DX: L98.7 Excessive and redundant skin and subcutaneous tissue (principal); E66.3 Overweight; Z98.84 Bariatric surgery status
CPT/HCPCS: 99214; G2211

== ENCOUNTER 2024-12-14 13:12 | Outpatient (AMB) | payer OTHER, SELFPAY ==
[2024-12-14 13:27] VITALS: BP 124/78; PULSE 100; O2SAT 98; BMI 28.9
--- NOTE | 2024-12-14 13:27 | A.OFFVIS_ITS ---
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 [employer] Required: No Accompanied by: Self / Same As Patient Allergies mushroom Allergy (Intermediate, Verified 12/14/24 13:36) rash/swelling Medication List - Last Reconciled 12/14/24 by LEIGH Merchant albuterol sulfate 90 mcg/actuation 2 puffs inhalation Q4-6H PRN albuterol sulfate 2.5 mg (3 mL) inhalation QID PRN 90 days calcium carbonate 200 mg PO DAILY cane As directed cholecalciferol (vitamin D3) 125 mcg PO DAILY 90 days clotrimazole 1% 1 appl topical BID docusate sodium 100 mg PO DAILY 30 days sennosides (senna) 17.2 mg (2 x 8.6 mg) PO BEDTIME PRN vitamin B complex 1 tab PO DAILY 90 days Zepbound (tirzepatide (weight loss)) 5 mg (0.5 mL) subcut QWEEK NS zinc gluconate 30 mg PO DAILY HPI Comments Details: History of Present Illness The patient is a 34-year-old female presenting with a neurology consult for migraine and restless leg syndrome. The migraines began approximately five to six years ago without any specific inciting event and have progressively worsened over time. The headaches are described as intense, starting from the back of the head and moving forward, often accompanied by neck pain. The patient reports that the migraines can be severe, with a pain intensity that can be debilitating, and are sometimes preceded by visual disturbances such as fluttering or glittering in the eyes. She experiences nausea and light sensitivity during these episodes, but denies sound sensitivity. The patient has tried various interventions, including using a cold can on her neck, which provides some relief. The patient also reports symptoms of restless leg syndrome, which occur primarily at rest and are relieved by movement. These symptoms are not present in her family history, although her mother experiences muscle cramps. The patient has a history of low iron levels, although she has not been diagnosed with anemia. She has experienced high blood pressure intermittently in the past, which she attributes to stress and lifestyle factors. Past Medical History The patient has a history of asthma and previously elevated blood pressure, which has improved following weight loss surgery. She is currently on Zepbound for weight management and reports a decrease in blood pressure since starting the medication. Pertinent positive past medical history: - Low iron levels - High blood pressure- history - Constipation - Asthma Past medical history is negative for: History of neurological disorders: Denies History of ear Nose and Throat disorders: Denies History of TMJ disorders: Denies History of musculoskeletal disorders: Denies History of musculoskeletal injuries: History of concussion/head injury: Denies History of mood disorder: Denies History of respiratory disorders: Denies History of sleep apnea: Denies History of hematological or coagulation disorders: Denies History of anemia: Denies History of metabolic or endocrine disorders: Denies History of seizure: Denies History of syncope: Denies History of genitourinary disorders: Denies History of kidney stones: Denies- however recent abdominal CT showed + kidney stone presence. History of gastrointestinal disorders: Denies other than + Constipation History of gynecological disorders: Denies Reproductive health status: Desire for family planning: Denies Current use of control: Denies Menstrual cycle is: Regular Family History - Family history of migraine: Denies - Mother had a stroke at age 40 due to lupus - No family history of restless leg syndrome Review of Systems - Neurological: Reports migraines with visual disturbances, nausea, and light sensitivity. Denies sound sensitivity. - Musculoskeletal: Reports symptoms of restless leg syndrome at rest, relieved by movement. - Cardiovascular: Denies chest pain, palpitations, or syncope. - Respiratory: Denies dyspnea, cough, or wheezing. - Gastrointestinal: Reports frequent constipation, managed with senna, Fluids, and as needed milk of Magnesia. Results - Labs: Last ferritin level in 2023 was 19. - Imaging: CT of the abdomen revealed a 2 mm kidney stone. Headache Review Headache questionnaire: Onset of initial headache symptoms: 5 or 6 years ago, progressively worsening. Initial precipitating cause of this headache: None Previous workup for this headache: None Types of headache disorders: 1 Typical headache characteristics: from the back of the head moving forward Prodrome symptoms: Unsure Aura: Sees flutter or glitter in eyes before onset of headache Headache pain intensity: Severe Location, quality, characteristics of this headache: Intense pain starting from the back of the head, moves forward, sometimes felt in the eyes Associated migraine symptoms: Nausea, lightheadedness, difficulty thinking Headache postdrome: Denies Headache aggravating factors: Denies Headache triggers: Denies Time of day this headache usually occurs: especially worse in the morning Duration of this headache: Almost constant Frequency of this headache: Daily, almost constant. How does headache impact your life? Makes it difficult to do day-to-day activities Current acute medication use/interventions: [id number] mg per day, which is ineffective. Current preventative medication use: Unknown Current non-pharmacological interventions: Uses cold can behind neck, considering migraine cooling caps Headache Lifestyle Factors - No caffeine use reported. - Patient vapes but does not use marijuana or alcohol. - Reports difficulty sleeping due to work schedule and restless leg syndrome. Social History - Works in a long term, engages in physical activity as part of job duties. - Lives with family, including a mother with a history of stroke. - No current plans for family expansion. Sleep - Typical bedtime around 11 PM, with sleep onset around midnight. - Total sleep duration approximately 6 hours, disrupted by restless leg syndrome. - No reported snoring or daytime sleepiness. Substance Use - Vapes regularly, denies use of marijuana or alcohol. Employment - Employed at a long term, engages in physical activity as part of job duties. FORMERLY [facility], [facility] Medical History (Updated 01/03/25 @ 16:11 by LEIGH Merchant) Anemia Physical exam Arthritis Asthma HTN (hypertension) Morbid obesity STI (sexually transmitted infection) Dysuria Dizziness Migraine with aura Hair loss Plantar fasciitis, bilateral Tendonitis of ankle, right Plantar fasciitis of right foot Right ankle pain Encounter for pre-employment examination Acute frontal sinusitis Asthma exacerbation Surgical History S/P laparoscopic sleeve gastrectomy H/O colonoscopy History of ear surgery Hx of section History of surgery on lower extremity Family History Mother Stroke Hypertension Lupus Father Heart disease Brother Cancer Son No problems noted. Son No problems noted. Son No problems noted. 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 Cognitive needs: No Hearing needs: No Vision needs: No Physical Exam Vital Signs: Last Vital Signs Pulse 100 12/14/24 13:27 BP 124/78 12/14/24 13:27 Pulse Ox 98 12/14/24 13:27 Oxygen Delivery Method Room Air 12/14/24 13:27 BMI result Body Mass Index 28.9 Const General: no acute distress Orientation/consciousness: patient oriented x3 HEENT Other: Mallampati stage Resp Effort & Inspection: normal respiratory effort and able to speak in complete sentences Cardio Rate: regular rate Rhythm: regular rhythm Neuro General: patient oriented x3 Cranial nerves: Yes CN's II-XII intact bilaterally Cognition (Neuro): normal cognition Gait exam (Neuro): Normal gait present Motor exam (neuro): 5/5 motor strength present throughout Deep tendon reflexes (DTR's): Right triceps reflex intensity grade: 2+, Left triceps reflex intensity grade: 2+, Rt Biceps (C5, C6): 2+, Left biceps reflex intensity grade: 2+, Right brachioradialis reflex intensity grade: 2+, Left brachioradialis reflex intensity grade: 2+, Right patellar reflex intensity grade: 2+ and Left patellar reflex intensity grade: 2+ Coordination: [id number] test normal, tandem gait normal and Romberg test negative Pupils: Normal pupillary reactivity/response: bilateral Psych Appearance: grossly normal Mental Status: mental status grossly normal Speech and movement: Clear speech present Affect: normal affect Attitude: cooperative Thought process: Normal thought process present Assessment & Plan Assessment & Plan (1) Worsening headaches: Code(s): R51.9 - Headache, unspecified Category: Medical (2) Visual aura: Code(s): H53.9 - Unspecified visual disturbance Category: Medical (3) Family history of cerebrovascular accident (CVA) in mother: Comment: At age 40 Code(s): Z82.3 - Family history of stroke Category: Medical (4) Restless legs syndrome (RLS): Code(s): G25.81 - Restless legs syndrome Category: Medical (5) Kidney stone: Code(s): N20.0 - Calculus of kidney Category: Medical Plan Discussion Notes During the consultation, I discussed the patient's migraine management, emphasizing the importance of lifestyle modifications such as adequate sleep and regular physical activity. We reviewed the potential benefits and side effects of migraine-specific medications, including sumatriptan and amitriptyline, and the possibility of using magnesium and vitamin B2 supplements. I also recommended a brain MRI with and without contrast to establish a baseline and assess for secondary etiologies of worsening headache in setting of family history of early-onset stroke. Also discussed the need for further lab tests to evaluate labs, including iron levels and inflammatory/autoimmune indicators, and their bearing on worsening headache and restless legs/sleep difficulties. The patient was advised on the importance of follow-up appointments and was provided with information on non-pharmacological interventions for migraine management. Pt advised to undergo: Fasting labs- can do at [facility] Location. XR C-spine w/ flexion/extension- at [facility] MRI brain with and without contrast at [facility] Future considerations: Sleep study For overall headache management: * Optimize good self-care, including but not limited to maintaining a healthy diet, adequate fluid intake, adequate sleep, and engaging in regular physical activity. * Track headaches, especially after any treatment regimen changes. Migraine [employer] is one of many headache tracking apps. * Information shared on non-pharmacological interventions which may help to alleviate headache attack burden. For light sensitivity: Patient may benefit from trying blue light filtering glasses, green glasses, green light therapy. For acute headache treatment: Discussed importance of taking acute medications at the first sign of headache, however stressed importance of avoiding acute medication overuse (especially with combined headache medications). * Limit acetaminophen/Tylenol use to 650-a 1000 mg every 4-6 hours, max of 3000 mg per day, and not to exceed 15 days per month * Trial Sumatriptan 100mg tab, 1/2 - 1 tab (50-100mg) at onset of headache, may repeat in 2 hours. Max of 2 tabs (200mg) per 24 hours. * May take sumatriptan with OTC Tylenol 650-1,000mg every 4-6 hours as needed * Potential adverse effects of triptans, include but are not limited to nausea, fatigue, chest tightness/tingling (usually passes within a few minutes), medication overuse headaches. Previous acute migraine medication trials: Tylenol 1500 mg daily- ineffective. Acute migraine medication contraindications: None at this time For headache prevention medication: Preventative medications should be taken routinely as prescribed for best effect, it may take several weeks for full effect to take effect. * Start Riboflavin (vitamin B2) 200 mg twice a day * The best place to buy this [id number]-vbmfwum is online * Common side effect-? yellow/orange urine * Start Magnesium 400-500mg daily at bedtime * This can be bought over the counter at any pharmacy or retail store or online * Common side effect- loose stools * Start Amitriptyline 10mg daily at bedtime. * Potential side effects include but are not limited to fatigue, cardiac arrhythmias, mood changes. Previous migraine prevention medication trials: None Migraine prevention medication contraindications: Beta-blockers due to history of asthma. Topiramate due to presence of kidney stone. Case discussed with Dr Angela Arzola. Will follow-up upon review of above and patient to follow-up in clinic in 3-4 months or sooner prn. Patient was informed and verbally consented to the use of an ambient scribe for clinic note documentation during this visit. Coding Level of Care Code New Pt Level 4 (51119) Diagnoses Worsening headaches R51.9 Visual aura H53.9 Family history of cerebrovascular accident (CVA) in mother Z82.3 Restless legs syndrome (RLS) G25.81 Kidney stone N20.0
--- OUTSIDE RECORDS SUMMARY | 2024-12-14 14:37 | XMS_ITS | Patient Health Record ---
Author Organization [facility] Address [address] [place] [address] Care Team Providers Care Chlorine Cell Tender Name Role Phone YSABEL FRANKS Primary Care Provider Vasyl Ashley Jr Unavailable Allergies Allergen (clinical drug ingredient) Drug/Non Drug Allergy documented on EMR Reaction Allergy Type Onset Date Status mushrooms (uncoded) Unknown Allergy Active Reason For Referral No Information Medications Medication SIG (Take, Route, Frequency, Duration) Notes Start Date End Date Status Lisinopril Active Topiramate Active Colyte with Flavor Packs 240 GM As directed Orally Over the specified time. for 1 day(s) 10/06/2015 Active Problems Problem Type SNOMED Code ICD Code Onset Dates Problem Status W/U Status Risk Notes Problem [id number] Rectal bleeding (K62.5) Active confirmed Plan Of Treatment Future Test Test Name Order Date COLONOSCOPY 10/06/2015 Insurance Providers Payer Name Payer Address Payer Phone Subscriber Number Group Number Insured Name Patient Relationship to Insured Coverage Start Date Coverage End Date MEDICARE OF [place] [address] [place] [address] [id number] CHIDI CEJA Self - patient is the insured MEDICAID OF [facility] [address] [place] [address] [id number] CHIDI CEJA Self - patient is the insured Medical (General) History Medical History History ICD Code hypertension anxiety/depression asthma Surgical History Surgery Date(Month/Year) section broken leg right 2010
== END 2024-12-14 15:02 | disposition home or self-care (01) ==
LOC: HO.HSMS 13:12
PROVIDERS: PCP Nurse Practitioner Family; Visit Provider Nurse Practitioner Family
DX: R51.9 Headache, unspecified (principal); H53.9 Unspecified visual disturbance; Z82.3 Family history of stroke; G25.81 Restless legs syndrome; N20.0 Calculus of kidney
CPT/HCPCS: 99204

== ENCOUNTER → 2024-12-14 13:12 | Outpatient (BNVA) | payer OTHER, SELFPAY | PROVIDERS: PCP Nurse Practitioner Family; Visit Provider Nurse Practitioner Family | DX: G43.109 Migraine with aura, not intractable, without status migrainosus (principal); G25.81 Restless legs syndrome; N20.0 Calculus of kidney; Z82.3 Family history of stroke | CPT/HCPCS: 99202 ==

== ENCOUNTER 2025-01-01 09:52 | Outpatient (REF) | payer OTHER, SELFPAY ==
--- OUTSIDE RECORDS SUMMARY | 2025-01-01 10:17 | XMS_ITS | Clinical Summary ---
Author Organization Patient Business Ser [facility] Address [address] [place] [address] Care Team Providers Care Magnetic Tape Typewriter Operator Name Role Phone Johnny Aguilar NP Primary Care Provider [phone] Surgical History Surgery Date Site/Laterality Comments SECTION PROCEDURE: HISTORICAL DELIVERY TONSILLECTOMY ADENOIDECTOMY, BILATERAL MYRINGOTOMY AND TUBES PROCEDURE: IN TONSILLECTOMY & ADENOIDECTOMY <AGE 13 OTHER SURGICAL HISTORY 11/2022 PROCEDURE: HISTORY OTHER; COMMENT: bariatric surgery Medical History Medical History Date Comments Chlamydia contact, treated DX:Ch lamydia contact, treated Bipolar 1 disorder ([facility] V24, [facility] V28) DX:Bipolar 1 disorder ([facility]) Learning disability DX:Learning disability Obese 12/26/2018 DX:Obese; [...] 2023-2 5 season) 2024 Influenza Vaccine (#1) 2025 Cervical Cancer Screening: P ap Smear [...] 5 Years) and At-Risk Patients (6 to 49 Years) Aged Out No longer eligible b [...] RESULTING AGENCY - 01/10/2024 12:45 PM EDT [id number]: THIS REPORT WAS AMENDED TO CORRECT THE PATIENT'S ORDER #. THE DIAGNOSIS REMAINS UNCHANGED. THINPREP PAP, IMAGED: LOW-GRADE SQUAMOUS INTRAEPITHELIAL LESION (LSIL) . MARK HOWELL M.D. , PATHOLOGIST (CASE ELECTRONICALLY SIGNED 01 10 2024) RESULT OF APTIMA HIGH RISK HPV ASSAY: HIGH RISK HPV: POSITIVE (SEROTYPES 16,18,31,33,35,39,45,51,52,56,58,59,66,68) RESULTS OF APTIMA HPV 16 AND 18/45 GENOTYPE ASSAY: HPV 16: NEGATIVE HPV 18/45: NEGATIVE COMPLETED ON 2024-01-02 ADEQUACY: SATISFACTORY ENDOCERVICAL/TRANSFORMATION ZONE COMPONENT PRESENT. SOURCE: THINPREP PAP HPV ANY DX: REFLEX 16 AND 18, CERVICAL, IMAGED CLINICAL INFORMATION: HPV ANY DIAGNOSIS, Z12.4, PAP HX: NEG 2020, LMP 12/08/2023. Domitila Cast [facility] CYTOLOGY ORDERABLES Edite d Result - Final HISTORICAL TESTING LAB RESULTING AGENCY from Last 3 Months or Most Recently Relevant to Health Maintenance Insurance [employer] MEDICARE Member Subscriber Plan / Payer (Ef fective 2016-Present) Name:Christina Flanagan Relation to Subscriber:Self Name:Christina Flanagan Payer ID:[id number] Group ID:[id number] Type:Not on file Address: [facility] [address] [address] Care Teams Magnetic Tape Typewriter Operator Relationship Specialty Start Date End Date Johnny Aguilar NP [address], [place] PCP - General 07/27/16
--- OUTSIDE RECORDS SUMMARY | 2025-01-01 10:17 | XMS_ITS | Patient Health Record ---
Author Organization [facility] Address [address] [place] [address] Care Team Providers Care Councilor Name Role Phone YSABEL FRANKS Primary Care [...] Problem Status W/U Status Risk Notes Problem [id number] Rectal bleeding (K62.5) Active confirmed Plan Of Treatment Future Test Test Name Order Date COLONOSCOPY 10/06/2015 Insurance Providers Payer Name Payer Address Payer Phone Subscriber Number Group Number Insured Name Patient Relationship to Insured Coverage Start Date Coverage End Date MEDICARE OF [place] [address] [place] [address] [phone] [id number] CHIDI CEJA Self - patient is the insured MEDICAID OF [facility] [address] [place] [phone] [id number] CHIDI CEJA Self - patient is the insured Medical (General) History Medical History History ICD Code hypertension anxiety/depression asthma Surgical History Surgery Date(Month/Year) section broken leg right 2010
[2025-01-01 13:46] LABS: MANUAL DIFF FLAG NO
[2025-01-01 14:11] LABS: Hematocrit 34.1 % (37.0-47.0); Hemoglobin 11.7 g/dl (12.0-16.0); Imm Gran Abs Auto 0.01 X10*3/uL (0.00-0.03); Imm Gran Pct Auto 0.2 % (0.0-0.4); Lymphocytes Absolute Auto 1.4 X10*3/uL (1.2-4.9); Mean Corpuscular HGB Conc 34.3 g/dl (31.0-35.0); Mean Corpuscular Hemoglobin 29.1 pg (27.0-33.0); Mean Corpuscular Volume 84.8 fL (80.0-98.0); NRBC Abs Auto 0.000 X10*3/uL (0.0-0.012); NRBC Pct Auto 0.0 /100WBC (0.0-0.2); Platelet Count 277 X10*3/uL (160-400); Red Blood Count 4.02 X10*6/uL (4.20-5.50); White Blood Count 4.7 X10*3/uL (4.8-10.8)
[2025-01-01 14:29] LABS: Alanine Aminotransferase 13 U/L (0-31); Albumin Level 4.7 g/dL (3.5-5.0); Alkaline Phosphatase 63 U/L (39-117); Anion Gap 10 (12-20); Aspartate Amino Transferase 20 U/L (5-31); Blood Urea Nitrogen 12 mg/dL (9-16); Calcium 9.1 mg/dL (8.4-10.2); Carbon Dioxide 26 mmol/L (22-29); Chloride 107 mmol/L (96-108); Cholesterol 163 mg/dL (<200); Estimated Glomerular Filt Rate > 60; HDL Cholesterol 48 mg/dL (>40); Potassium 3.6 mmol/L (3.3-5.1); Sodium 139 mmol/L (135-145); Total Protein 7.3 g/dL (6.5-8.0); Triglycerides 54 mg/dL (<150)
[2025-01-01 15:21] LABS: INTERNATIONAL NORM RATIO 1.1 (0.9-1.1); Prothrombin Time 13.1 SEC (10.9-12.4)
[2025-01-01 15:23] LABS: Partial Thromboplastin Time 30.0 SEC (26.0-36.8)
[2025-01-02 17:38] LABS: A. Phagocytphilium DNA,RT-PCR NOT DETECTED (NOT DETECTED); Babesia Microti DNA, RT-PCR NOT DETECTED (NOT DETECTED); Borrelia Miyamotoi,DNA RT-PCR NOT DETECTED (NOT DETECTED); E.Chaffeensis DNA RT-PCR NOT DETECTED (NOT DETECTED); Lyme(Borrelia ssp)DNA RT-PCR NOT DETECTED (NOT DETECTED)
[2025-01-04 21:13] LABS: Lyme Abs Screen <0.90 index
[2025-01-05 20:58] LABS: Antibody to SS-A Antigen <1.0 NEG AI (<1.0 NEG); Antibody to SS-B Antigen <1.0 NEG AI (<1.0 NEG)
[2025-01-06 08:44] LABS: DNAds, Crithidia Antibody Negative (Negative)
[2025-01-09 08:09] LABS: Anti Nuclear Antibody Screen POSITIVE (NEGATIVE); Anti Nuclear Antibody Titer 1:40 titer
== END 2025-01-01 09:53 | disposition home or self-care (01) ==
LOC: HO.HMGCLDS 09:52
PROVIDERS: PCP Nurse Practitioner Family; Visit Provider Nurse Practitioner Family
DX: Z00.00 Encounter for general adult medical examination without abnormal findings (principal); E55.9 Vitamin D deficiency, unspecified; Z82.69 Family history of other diseases of the musculoskeletal system and connective tissue; T14.8XXA Other injury of unspecified body region, initial encounter
CPT/HCPCS: 36415; 80053; 80061; 82306; 84443; 85025; 85610; 85652; 85730; 86038; 86039; 86225; 86235; 86255; 86617; 86618; 87468; 87469; 87478; 87484; 87798

== ENCOUNTER 2025-01-18 12:51 | Outpatient (AMB) | payer OTHER, SELFPAY ==
--- NOTE | 2025-01-18 13:26 | MHC.OFFVISWM ---
VS Expanded 01/18/25 13:44 BP 137/95 H Blood Pressure Location Rt brachial Blood Pressure Position Sitting Pulse 99 Pulse Source Pulse Oximeter Temp 97.2 F Temperature Source Temporal Artery Scan Pulse Oximetry 99 Oxygen Delivery Method Room Air Height 5 ft 6 in Weight 169 lb 12.8 oz BMI 27.4 Body Fat % 31.7 Body Fat Mass 53.8 Fat Free Mass 116.0 Visceral Fat Rating 5.0 Body Water % 49.0 Body Water Mass 83.2 Muscle Mass/Score 110.0 Basal Metabolic Rate/Score 1,583 Intake Visit Reasons: (OV) PO LSG 12/21/22 PE of EXCESS SKIN Allergies mushroom Allergy (Intermediate, Verified 12/14/24 13:36) rash/swelling Medication List - Last Reconciled 01/18/25 by LILA Hernandez albuterol sulfate 90 mcg/actuation 2 puffs inhalation Q4-6H PRN albuterol sulfate 2.5 mg (3 mL) inhalation QID PRN 90 days calcium carbonate 200 mg PO DAILY cane As directed cholecalciferol (vitamin D3) 125 mcg PO DAILY 90 days clotrimazole 1% 1 appl topical BID docusate sodium 100 mg PO DAILY 30 days nystatin 1 appl topical QID PRN sennosides (senna) 17.2 mg (2 x 8.6 mg) PO BEDTIME PRN tirzepatide (weight loss) (Zepbound) 7.5 mg (0.5 mL) subcut QWEEK vitamin B complex 1 tab PO DAILY 90 days zinc gluconate 30 mg PO DAILY HPI Comments Details: This?is a?34?yo F who is s/p LSG 12/21/2022. Weight loss of 12.2lbs since last OV 2mo ago, continues on Zepbound. Notes constipation on this, takes senna and colace PRN. Present meal plan includes: 1 Fairlife shake, plus half shake or one protein bar, plus one meal max 8f/8f Exercise routine includes: has not been able to go to the gym- has a special needs child Interested in skin removal surgery- abdomen. Discussed with Dr. Dahl Gets a rash in skin folds and in belly button- has tried topical creams OTC as well as clotrimazole after last visit, but it comes back. When moisture collects here, it causes an unpleasant odor and she has to clean frequently, particularly in belly button. The rash is painful and itchy. Has to wear a tight compressive tank top tucked into waistband with underwear pulled up, to help support excess skin; otherwise, the excess skin is very uncomfortable. She even has to do this in summertime which is very uncomfortable. Activities of daily living are more difficult due to the excess skin, including walking, which is more uncomfortable due to heaviness of excess skin. Have you been diagnosed with reflux (GERD)? Score 0-5: 0=no symptoms, 1=noticeable but not bothersome (slight or occasional), 2=noticeable, bothersome but not daily, 3=bothersome and daily, 4=affects daily activities, 5=incapacitating, unable to do daily activities How bad is the heartburn: 0 Heartburn when lying down: 0 Heartburn when standing up: 0 Heartburn after meals: 0 Does heartburn change your diet: 0 Does heartburn wake you up from sleep: 0 Do you have difficulty swallowin Do you have pain with swallowin If you take medication for reflux, does this affect your daily life: 0 Total score: 0 PFSH Medical History (Updated 01/16/25 @ 15:02 by Johnny Aguilar, [facility]) Anemia Physical exam Arthritis Asthma HTN (hypertension) Morbid obesity STI (sexually transmitted infection) Dysuria Dizziness Migraine with aura Hair loss Plantar fasciitis, bilateral Tendonitis of ankle, right Plantar fasciitis of right foot Right ankle pain Encounter for pre-employment examination Acute frontal sinusitis Asthma exacerbation Surgical History S/P laparoscopic sleeve gastrectomy H/O colonoscopy History of ear surgery Hx of section History of surgery on lower extremity Family History Mother Stroke Hypertension Lupus Father Heart disease Brother Cancer Son No problems noted. Son No problems noted. Son No problems noted. 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 Cognitive needs: No Hearing needs: No Vision needs: No Physical Exam Vital Signs: Last Vital Signs Temp 97.2 F 01/18/25 13:44 Pulse 99 01/18/25 13:44 BP 137/95 H 01/18/25 13:44 Pulse Ox 99 01/18/25 13:44 Oxygen Delivery Method Room Air 01/18/25 13:44 BMI result Body Mass Index 27.4 Const General: cooperative, comfortable and no acute distress Orientation/consciousness: patient oriented x3 GI Other: soft, nontender, nondistended, incisions well healed, no hernia, no masses Grade II pannus with active rash at right edge of C section incision within skin fold (photo taken) Neuro General: patient oriented x3 Assessment & Plan Assessment & Plan (1) S/P laparoscopic sleeve gastrectomy: Code(s): Z98.84 - Bariatric surgery status Category: Medical (2) Overweight: Code(s): E66.3 - Overweight Category: Medical (3) Excess skin: Code(s): L98.7 - Excessive and redundant skin and subcutaneous tissue Category: Medical Plan Pt doing very well on Zepbound so far, trying to maintain a high protein meal plan. She is experiencing issues of excess skin of abdomen resulting in frequent and recurrent painful, itchy, malodorous rashes which are unrelieved by topical antifungals. In addition she is experiencing limitations/discomfort in activities of daily living, including walking. She requires the use of special clothing at all times to try to prevent discomfort but her issues have not been completely relieved by conservative measures. She would benefit from definitive treatment of panniculectomy. New rx sent today for nystatin powder as clotrimazole ointment sometimes worsens moisture problems. Pt will text me once she reaches 167lbs on home scale for BMI 27. Medications: New nystatin 1 appl topical QID PRN 60 grams 2RF rash
--- OUTSIDE RECORDS SUMMARY | 2025-01-18 13:32 | XMS_ITS | Patient Health Record ---
Author Organization [facility] Address [address] [place] [address] Care Team Providers Care Child Development Professor Name Role Phone YSABEL FRANKS Primary Care [...] Problem Status W/U Status Risk Notes Problem [id number] Rectal bleeding (K62.5) Active confirmed Plan Of Treatment Future Test Test Name Order Date COLONOSCOPY 10/06/2015 Insurance Providers Payer Name Payer Address Payer Phone Subscriber Number Group Number Insured Name Patient Relationship to Insured Coverage Start Date Coverage End Date MEDICARE OF [place] [address] [place] [address] [id number] CHIDI CEJA Self - patient is the insured MEDICAID OF [facility] [address] [place] [address] [id number] CHIDI CEJA Self - patient is the insured Medical (General) History Medical History History ICD Code hypertension anxiety/depression asthma Surgical History Surgery Date(Month/Year) section broken leg right 2010
--- OUTSIDE RECORDS SUMMARY | 2025-01-18 13:32 | XMS_ITS | Clinical Summary ---
Author Organization Patient Business Ser [facility] Address [address] [place] [address] Care Team Providers Care Waiter/Waitress Economy Class Name Role Phone Johnny Aguilar NP Primary Care Provider Surgical History Surgery Date Site/Laterality Comments SECTION PROCEDURE: HISTORICAL DELIVERY TONSILLECTOMY ADENOIDECTOMY, BILATERAL MYRINGOTOMY AND TUBES PROCEDURE: [place] TONSILLECTOMY & ADENOIDECTOMY <AGE 13 OTHER SURGICAL HISTORY 11/2022 PROCEDURE: HISTORY OTHER; COMMENT: bariatric surgery Medical History Medical History Date Comments Chlamydia contact, treated DX:Ch lamydia contact, treated Bipolar 1 disorder ([facility] V24, [facility] V28) DX:Bipolar 1 disorder ([facility]) Learning disability DX:Learning disability Obese 12/26/2018 [...] 12/27/2023 11:37 AM EDT Plan of Treatment Upcoming Encounters Date Type Department Care Team (Late st Contact Info) Description 06/03/2025 10:00 AM EST Office Visit Obstetrics & Gynecology - [address] [id number] Domitila Cast, CNM [address] [place] [address] Health Maintenance Due Date Last Done Comments DTaP,Tdap,and Td Vaccines (1 - Tdap) 2010 Hepatitis B Vaccines (1 of 3 - 19+ 3-dose series) 2010 Cholesterol Screening (Lipid Panel) 01/20/2024 Hepatitis C Screening 01/20/2024 Medicare Annual Wellness Visit 01/20/2024 Social Influencers of Health Screening 01/20/2024 COVID-19 Vaccine (1 - 2023-2 5 season) 2024 Depression Screening 06/24/2024 Influenza Vaccine (#1) 2025 Cervical Cancer Screening: [...] RESULTING AGENCY - 01/10/2024 12:45 PM EDT [id number]: THIS REPORT WAS AMENDED TO CORRECT THE [...] HX: NEG 2020, LMP 12/08/2023. Domitila Cast [facility] CYTOLOGY ORDERABLES Edite d Result - Final HISTORICAL TESTING LAB RESULTING AGENCY from Last 3 Months or Most Recently Relevant to Health Maintenance Insurance [employer] MEDICARE Member Subscriber Plan / Payer (Ef fective 2016-Present) Name:CHRISTINA CEJA Relation to Subscriber:Self Name:Christina Flanagan Payer ID:[id number] Group ID:[id number] Type:Not on file Address: [place] [address] [address] [phone] Care Teams Waiter/Waitress Economy Class Relationship Specialty Start Date End Date Johnny Aguilar NP [address] [facility] PCP - General 07/27/16
[2025-01-18 13:44] VITALS: BP 137/95; PULSE 99; TEMP 36.2; O2SAT 99; BMI 27.4
== END 2025-01-18 14:11 | disposition home or self-care (01) ==
LOC: HO.HBS 12:52
PROVIDERS: PCP Nurse Practitioner Family; Visit Provider Physician Assistant Surgical
DX: E66.3 Overweight (principal); Z98.84 Bariatric surgery status; L98.7 Excessive and redundant skin and subcutaneous tissue
CPT/HCPCS: 99214; G2211

== ENCOUNTER → 2025-01-18 12:51 | Outpatient (BNVA) | payer OTHER, SELFPAY | PROVIDERS: PCP Nurse Practitioner Family; Visit Provider Physician Assistant Surgical | DX: Z98.84 Bariatric surgery status (principal); E66.3 Overweight; L98.7 Excessive and redundant skin and subcutaneous tissue | CPT/HCPCS: 99212 ==

== ENCOUNTER → 2025-03-25 10:48 | Outpatient (BNV) | payer OTHER, SELFPAY | PROVIDERS: PCP Nurse Practitioner Family; Visit Provider Radiology Diagnostic Radiology | DX: J32.2 Chronic ethmoidal sinusitis (principal) | CPT/HCPCS: 70553 ==

== ENCOUNTER 2025-03-25 10:49 | Outpatient (REF) | payer OTHER, SELFPAY ==
--- NOTE | ~2025-03-25 | MR_ITS ---
EXAMINATION: MR BRAIN WITHOUT AND WITH CONTRAST CLINICAL INFORMATION: Headache, unspecified. COMPARISON: None available. TECHNIQUE: Multiplanar, multisequence MRI of the brain was obtained before and after the intravenous administration of 7 mL Gadavist. Study was performed on a 1.5 Dianna Siemens high-field unit. FINDINGS: There is no diffusion restriction. There is no intracranial hemorrhage, acute infarction, mass effect, or edema. Ventricles, sulci, and cisterns are normal in size and configuration for patient age. There is a cavum vergae. No shift of midline. No abnormal hemosiderin deposition is identified. There are no significant white matter signal abnormalities. There is no abnormal intra or extra-axial enhancement after the administration of contrast. Midline structures appear normally formed. The pituitary gland appears normal. Posterior fossa structures appear normal. Cerebellar tonsils are appropriately located. Major flow voids are preserved within the skull base. The globes and orbital contents demonstrate no abnormalities. Paranasal sinuses demonstrate significant mucosal thickening throughout the right ethmoid sinuses, and to a lesser degree the right sphenoid sinus. Remainder of the paranasal sinuses are normally pneumatized. The mastoids and tympanic cavities are normally aerated. Extracranial soft tissues demonstrate no abnormalities. No suspicious bone marrow changes are evident. Atlantoaxial joint is normal. MR/MR head/brain wo/w con IMPRESSION: 1. No evidence of intracranial hemorrhage, acute infarction, mass effect, edema, or abnormal contrast enhancement. Essentially normal MRI of the brain. 2. Significant right ethmoid sinus mucosal disease. Electronically signed by: Keith Gautam MD 03/25/2025 11:50 AM EDT
--- OUTSIDE RECORDS SUMMARY | 2025-03-25 12:42 | XMS_ITS | Clinical Summary ---
Author Organization Patient Business Ser [facility] Address [address] [place] [address] Care Team Providers Care Elementary [employer] Art Teacher Name Role Phone Johnny Aguilar NP Primary Care Provider Surgical History Surgery Date Site/Laterality Comments SECTION PROCEDURE: HISTORICAL DELIVERY TONSILLECTOMY ADENOIDECTOMY, BILATERAL MYRINGOTOMY AND TUBES PROCEDURE: [place] TONSILLECTOMY & ADENOIDECTOMY <AGE 13 OTHER SURGICAL HISTORY 11/2022 PROCEDURE: HISTORY OTHER; COMMENT: bariatric surgery Medical History Medical History Date Comments Chlamydia contact, treated DX:Ch lamydia contact, treated Bipolar 1 disorder ([facility] V24, [facility] V28) DX:Bipolar 1 disorder ([facility]) Learning disability DX:Learning disability Obese [...] EST Office Visit Obstetrics & Gynecology - [facility] [address] [place] [address] More Vitale CNM [address] [place] [phone] Health Maintenance Due Date Last Done Comments DTaP,Tdap,and Td Vaccines (1 - Tdap) 2010 Hepatitis B Vaccines (1 of 3 - 19+ 3-dose series) 2010 Hepatitis C Screening 01/20/2024 Medicare Annual Wellness Visit 01/20/2024 Social Influencers of Health Screening 01/20/2024 Depression Screening 06/24/2024 COVID-19 Vaccine ( - 2023-2 5 season) 2025 Influenza Vaccine (#1) 2025 Cervical Cancer Screening: [...] RESULTING AGENCY - 01/10/2024 12:45 PM EDT [id number]: THIS REPORT WAS AMENDED TO CORRECT THE [...] HX: NEG 2020, LMP 12/08/2023. Domitila Cast [facility] CYTOLOGY ORDERABLES Edite d Result - Final HISTORICAL TESTING LAB RESULTING AGENCY from Last 3 Months or Most Recently Relevant to Health Maintenance Insurance [employer] MEDICARE Member Subscriber Plan / Payer (Ef fective 2016-Present) Name:CHRISTINA CEJA Relation to Subscriber:Self Name:Christina Flanagan Payer ID:[id number] Group ID:[id number] Type:Not on file Address: [place] [address] [address] [phone] Care Teams Elementary School Art Teacher Relationship Specialty Start Date End Date Johnny Aguilar NP [address] [place], [place] PCP - General 07/27/16
--- OUTSIDE RECORDS SUMMARY | 2025-03-25 12:42 | XMS_ITS | Patient Health Record ---
Author Organization [facility] Address [address] [place] [address] Care Team Providers Care Photogrammetric Tech Name Role Phone YSABEL FRANKS Primary Care [...] Problem Status W/U Status Risk Notes Problem [id number] Rectal bleeding (K62.5) Active confirmed Plan Of Treatment Future Test Test Name Order Date COLONOSCOPY 10/06/2015 Insurance Providers Payer Name Payer Address Payer Phone Subscriber Number Group Number Insured Name Patient Relationship to Insured Coverage Start Date Coverage End Date MEDICARE OF [place] [address] [place] [address] [phone] [id number] CHIDI CEJA Self - patient is the insured MEDICAID OF [facility] [address] [place] [address] [id number] CHIDI CEJA Self - patient is the insured Medical (General) History Medical History History ICD Code hypertension anxiety/depression asthma Surgical History Surgery Date(Month/Year) section broken leg right 2010
== END 2025-03-25 10:50 | disposition home or self-care (01) ==
LOC: HO.MRI 10:49
PROVIDERS: PCP Nurse Practitioner Family; Visit Provider Nurse Practitioner Family
DX: R51.9 Headache, unspecified (principal); H53.9 Unspecified visual disturbance; Z82.3 Family history of stroke
CPT/HCPCS: 70553; A9585

== ENCOUNTER 2025-05-26 08:16 | Outpatient (AMB) | payer OTHER, SELFPAY ==
--- OUTSIDE RECORDS SUMMARY | 2025-05-26 08:22 | XMS_ITS | Clinical Summary ---
Author Organization Patient Business Ser [facility] Address [address] [place] [address] Care Team Providers Care Cork Tipper Name Role Phone Johnny Aguilar NP Primary Care Provider Surgical History Surgery Date Site/Laterality Comments SECTION PROCEDURE: HISTORICAL DELIVERY TONSILLECTOMY ADENOIDECTOMY, BILATERAL MYRINGOTOMY AND TUBES PROCEDURE: [place] TONSILLECTOMY & ADENOIDECTOMY <AGE 13 OTHER SURGICAL HISTORY 11/2022 PROCEDURE: HISTORY OTHER; COMMENT: bariatric surgery Medical History Medical History Date Comments Chlamydia contact, treated DX:Ch lamydia contact, treated Bipolar 1 disorder ([facility] V24, [facility] V28) DX:Bipolar 1 disorder ([facility] [...] of 3 - 19+ 3-dose series) 2010 HPV Vaccines (1 - 3-dose SCD M series) 2018 Hepatitis C Screening 01/20/2024 Medicare Annual Wellness Visit 01/20/2024 Social Influencers of Health Screening 01/20/2024 Depression Screening 06/24/2024 COVID-19 Vaccine (1 - 2024-2 6 season) 2025 Influenza Vaccine (#1) 2025 Cervical Cancer Screening: P ap Smear 12/26/2026 12/27/2023, 01/20/2019 RSV Immunization Adult Patients (1 - 1-dose 75+ series) 2066 HIV Screening Completed 01/21/2024 HIB Vaccines Aged [...] RESULTING AGENCY - 01/10/2024 12:45 PM EDT [id number]: THIS REPORT WAS AMENDED TO CORRECT THE [...] HX: NEG 2020, LMP 12/08/2023. Domitila Cast [facility] CYTOLOGY ORDERABLES Edite d Result - Final HISTORICAL TESTING LAB RESULTING AGENCY from Last 3 Months or Most Recently Relevant to Health Maintenance Insurance [employer] MEDICARE Member Subscriber Plan / Payer (Ef fective 2016-Present) Name:MARCIAL CHRISTINA Relation to Subscriber:Self Name:Vanita Flanaganz Sai Payer ID:[id number] Group ID:[id number] Type:Not on file Address: [facility] [address] [phone] Care Teams Cork Tipper Relationship Specialty Start Date End Date Johnny Aguilar NP [address] [place], [place] PCP - General 07/27/16
--- NOTE | 2025-05-26 11:07 | A.OFFVIS_ITS ---
VS Expanded 05/26/25 11:24 Height 5 ft 6 in Weight 148 lb BMI 23.9 Intake Visit Reasons: TV Pre Op Panniculectomy 06/10/25 Allergies mushroom Allergy (Intermediate, Verified 05/26/25 11:07) rash/swelling Medication List - Last Reconciled 05/26/25 by Johnathon Bower MD albuterol sulfate 90 mcg/actuation 2 puffs inhalation Q4-6H PRN albuterol sulfate 2.5 mg (3 mL) inhalation QID PRN 90 days calcium carbonate 200 mg PO DAILY cane As directed cephalexin 500 mg PO Q12H cholecalciferol (vitamin D3) 125 mcg PO DAILY 90 days clotrimazole 1% 1 appl topical BID docusate sodium 100 mg PO DAILY 30 days docusate sodium (Colace) 100 mg PO DAILY ondansetron 4 mg PO Q12H ondansetron 4 mg PO Q8H PRN sennosides (senna) 17.2 mg (2 x 8.6 mg) PO BEDTIME PRN tirzepatide (weight loss) (Zepbound) 10 mg (0.5 mL) subcut QWEEK vitamin B complex 1 tab PO DAILY 90 days zinc gluconate 30 mg PO DAILY HPI HPI TV Pre Op Panniculectomy 06/10/25: Details: Start time: 11.02am, End time: 11.32am ?I spent 25 minutes speaking with the patient on the phone plus an additional 5 minutes reviewing and updating records for a total of 30 minutes HPI Comments Details: Overall weight loss: 119.4lbs, or 44.65% TBWL Is doing breakfast (4 forkfuls of eggs, or yogurt (2 HALF Fairlife protein shakes, one Think protein bar and one meal (4 forkfuls of meat and 4 forkfuls) Exercise: treadmill [facility] Medical History (Updated 05/26/25 @ 11:04 by Johnathon Bower MD) Postgastrectomy malabsorption Anemia Physical exam Arthritis Asthma HTN (hypertension) Morbid obesity STI (sexually transmitted infection) Dysuria Dizziness Migraine with aura Hair loss Plantar fasciitis, bilateral Tendonitis of ankle, right Plantar fasciitis of right foot Right ankle pain Encounter for pre-employment examination Acute frontal sinusitis Asthma exacerbation Surgical History S/P laparoscopic sleeve gastrectomy H/O colonoscopy History of ear surgery Hx of section History of surgery on lower extremity Family History Mother Stroke Hypertension Lupus Father Heart disease Brother Cancer Son No problems noted. Son No problems noted. Son No problems noted. 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 Cognitive needs: No Hearing needs: No Vision needs: No Telehealth Telehealth Telehealth Platform: Telephone Location of provider rendering services: practice address Location of patient: address on file Patient Identification confirmed using: Name, : Yes Telehealth method: voice only Patient verbally consented to treatment: Yes Patient verbally consented to billing insurance company: Yes Patient informed of any privacy concerns related to visit: Yes Minutes spent on Phone/Video with Pt.: 30 Assessment & Plan Assessment & Plan (1) Excess skin: Code(s): L98.7 - Excessive and redundant skin and subcutaneous tissue Category: Medical Plan: 1. Plan for panniculectomy. Risks of infection, bleeding, asymmetry, wound dehiscence and blood clots were discussed with the patient. 2. You will have a drain the abdomen that may stay a few weeks before it may be removed 3. You will need to be doing sponge baths the first 1-2 weeks. No showers. You need to have help at home to get you up and limit your activities as much as po ssible for at least the 4-6 weeks after surgery 4. We will arrange for a visiting nurse to come at home to help you with dressing changes and send me pictures of the procedures. We will send at your home supplies for the dressing changes. 5. Change present nutritional plan to one Oceanake (4oz Fairlife mixed with 4oz low fat unsweetended almond milk) at 6-8am, one Think protein bar at 9-11pm, another Fairlife shake (4oz Fairlife mixed with 4oz low fat unsweetended almond milk) at 12-2pm, another Fairlife shake (4oz Fairlife mixed with 4oz low fat unsweetended almond milk) at 3-5pm, dinner at 6pm (4 forkful size pieces of meat and 4 forkful size pieces of salad or vegetables). Please avoid salt completely starting now.? This will improve weight loss and healing after surgery. 6. Continue all your medications until the day after surgery. Stop the Zepbound as of 05/31/25. Do not re-start it after surgery. 7. Start the Colace now and take one per day, daily. 8. Do blood work not fasting any day between Saturday05/31/25 and Saturday06/04/25 and rock picker the antibiotic prescription from your pharmacy 9. Risks and complications were discussed the possibility of bleeding that may r equire transfusion, loss of the umbilicus, wound dehiscence or infection, dog ears , flap asymmetry. We also discussed the importance of strict avoidance of weight lifting. 10. Avoid aspirin, motrin, ibuprofen, Excedrin, Meloxicam, Aleve, Advil, Naproxyn. Only Tylenol Orders: Orders TSH reflex Free T4 Today K91.2 - Postsurgical malabsorption, not elsewhere classified, Z90.3 - Acquired absence of stomach [part of] Prothrombin Time INR Today K91.2 - Postsurgical malabsorption, not elsewhere classified, Z90.3 - Acquired absence of stomach [part of] Lipid Panel Today K91.2 - Postsurgical malabsorption, not elsewhere classified, Z90.3 - Acquired absence of stomach [part of] Type and Screen Today K91.2 - Postsurgical malabsorption, not elsewhere classified, Z90.3 - Acquired absence of stomach [part of] C Reactive Protein Today K91.2 - Postsurgical malabsorption, not elsewhere classified, Z90.3 - Acquired absence of stomach [part of] Partial Thromboplastin Time Today K91.2 - Postsurgical malabsorption, not elsewhere classified, Z90.3 - Acquired absence of stomach [part of] Vitamin D 25-OH Total Today K91.2 - Postsurgical malabsorption, not elsewhere classified, Z90.3 - Acquired absence of stomach [part of] IRON PROFILE Today K91.2 - Postsurgical malabsorption, not elsewhere classified, Z90.3 - Acquired absence of stomach [part of] Comprehensive Met. Panel Today K91.2 - Postsurgical malabsorption, not elsewhere classified, Z90.3 - Acquired absence of stomach [part of] Vitamin A Today K91.2 - Postsurgical malabsorption, not elsewhere classified, Z90.3 - Acquired absence of stomach [part of] Hemoglobin A1c Today K91.2 - Postsurgical malabsorption, not elsewhere classified, Z90.3 - Acquired absence of stomach [part of] Vitamin B1 Today K91.2 - Postsurgical malabsorption, not elsewhere classified, Z90.3 - Acquired absence of stomach [part of] Vitamin B12 Today K91.2 - Postsurgical malabsorption, not elsewhere classified, Z90.3 - Acquired absence of stomach [part of] Complete Blood Count Auto Diff Today K91.2 - Postsurgical malabsorption, not elsewhere classified, Z90.3 - Acquired absence of stomach [part of] Ferritin Today K91.2 - Postsurgical malabsorption, not elsewhere classified, Z90.3 - Acquired absence of stomach [part of] Zinc Today K91.2 - Postsurgical malabsorption, not elsewhere classified, Z90.3 - Acquired absence of stomach [part of] Insulin Today K91.2 - Postsurgical malabsorption, not elsewhere classified, Z90.3 - Acquired absence of stomach [part of] Medications: New ondansetron 4 mg PO Q12H 20 tabs 0RF nausea and vomiting R11.0 - Nausea docusate sodium (Colace) 100 mg PO DAILY 90 caps 0RF K59.00 - Constipation, unspecified cephalexin 500 mg PO Q12H 60 caps 2RF M79.3 - Panniculitis, unspecified
[2025-05-26 11:24] VITALS: BMI 23.9
== END 2025-05-26 11:33 | disposition home or self-care (01) ==
LOC: HO.HBS 08:16
PROVIDERS: PCP Nurse Practitioner Family; Visit Provider Surgery
DX: M79.3 Panniculitis, unspecified (principal); L98.7 Excessive and redundant skin and subcutaneous tissue
CPT/HCPCS: 99024

== ENCOUNTER 2025-06-10 05:47 | Day surgery (SDC) | payer OTHER, SELFPAY ==
[2025-05-26 12:20] VITALS: BMI 23.9
[2025-05-31 10:05] LABS: MANUAL DIFF FLAG NO
[2025-05-31 10:40] LABS: Hematocrit 35.1 % (37.0-47.0); Hemoglobin 11.8 g/dl (12.0-16.0); Imm Gran Abs Auto 0.00 X10*3/uL (0.00-0.03); Imm Gran Pct Auto 0.0 % (0.0-0.4); Lymphocytes Absolute Auto 1.3 X10*3/uL (1.2-4.9); Mean Corpuscular HGB Conc 33.6 g/dl (31.0-35.0); Mean Corpuscular Hemoglobin 29.0 pg (27.0-33.0); Mean Corpuscular Volume 86.2 fL (80.0-98.0); NRBC Abs Auto 0.000 X10*3/uL (0.0-0.012); NRBC Pct Auto 0.0 /100WBC (0.0-0.2); Platelet Count 284 X10*3/uL (160-400); Red Blood Count 4.07 X10*6/uL (4.20-5.50); White Blood Count 4.1 X10*3/uL (4.8-10.8)
[2025-05-31 10:53] LABS: INTERNATIONAL NORM RATIO 1.2 (0.9-1.1); Prothrombin Time 14.7 SEC (11.2-13.5)
[2025-05-31 10:55] LABS: Partial Thromboplastin Time 30.1 SEC (26.7-34.1)
[2025-05-31 11:36] LABS: Alanine Aminotransferase 14 U/L (0-31); Albumin Level 4.8 g/dL (3.5-5.0); Alkaline Phosphatase 57 U/L (39-117); Anion Gap 12 (12-20); Aspartate Amino Transferase 13 U/L (5-31); Blood Urea Nitrogen 12 mg/dL (9-16); Calcium 9.3 mg/dL (8.4-10.2); Carbon Dioxide 24 mmol/L (22-29); Chloride 108 mmol/L (96-108); Cholesterol 161 mg/dL (<200); Creatinine Clr Calc Pharmacy 121.6; Estimated Glomerular Filt Rate > 60; Ferritin 18 ng/mL (10-122); HDL Cholesterol 52 mg/dL (>40); Iron 105 mcg/dL (30-160); Percent Iron Saturation 46 % (15-50); Potassium 3.8 mmol/L (3.3-5.1); Sodium 140 mmol/L (135-145); Total Iron Binding Capacity 226 mcg/dL (228-428); Total Protein 7.4 g/dL (6.5-8.0); Triglycerides 42 mg/dL (<150); Unsaturated Iron Binding 121 ug/dL
[2025-05-31 12:03] LABS: Vitamin B12 599 pg/mL (200-900)
[2025-06-10] VITALS (13 sets, daily range): BP systolic 101–123; BP diastolic 56–70; PULSE 83–108; RESP 9–16; TEMP 36.5–37.3; O2SAT 90–100
[2025-06-10 06:47] LABS: UPreg QC Valid YES
[2025-06-10] MEDS: Lactated Ringers 1,000 ML 100 ML IVCONT (07:08)
--- NOTE | 2025-06-10 08:06 | MHC.SHP ---
Pre-Procedural Eval Section A - 24 Hr Update-Section A only Date of Service: 06/10/25 The patient is an INPATIENT: No The patient has been examined within 24 hours of the surgical procedure. The History & Physical has been completed within 30 days and I have reviewed it.: Yes Section B - Complete if H&P > 30 days Chief Complaint: Excessive and redundant skin and subcut tissue Relevant Family History (Specify if Yes): No Relevant Social History: None Present Medications: None Medical History: No relevant PMH History of Previous Operations: Relevant previous surgery/procedure and date(s) (Laparoscopic sleeve gastrectomy) Allergies: Allergies Allergy/AdvReac Type Severity Reaction Status Date / Time mushroom Allergy Severe Anaphylaxis Verified 05/31/25 11:32 Review of Systems Sugical H&P ROS: Negative: Constitution, Cardiovascular, Respiratory, Neurological, Psychiatric, Hem-Onc, Allergic/Immunologic, Gastrointestinal, Genitourinary, Musculoskeletal, Integumentary, Endocrine and Eyes/Ears/Nose/Throat Exam Surgical H&P Exam: Normal: HEENT, Normal: Heart, Normal: Lungs, Normal: Extremities, Normal: Abdomen, Normal: Skin and Normal: Neurological Plan Diagnosis/Plan: Unchanged I have reviewed the history and physical and performed a pertinent physical examination on my patient. No changes have occurred unless specified. Time Spent With Patient Time: Total time managing care of this patient today ____ minutes.
--- NOTE | 2025-06-10 08:07 | P.F2F_ITS ---
Service Date Service Date: 06/10/25 Encounter Date of encounter: 06/10/25 Reasons for Services Signs and symptoms assessed: s/p panniculectomy Reason for correction: wound care Homebound: Leaving the home is medically contraindicated at this time without the asist of a device and/or another person due th the listed conditions above and below. Reason homebound: unable to drive Certification: Based on the above findings, I certify that this patient is confined to the home and needs intermittent correction care, physical therapy and/or speech therapy, or continues to need occupational therapy. The patient is under my care, and I have initiated the establishment of the plan of care. The patient will be followed by a physician who will periodically review the plan of care. Time Spent With Patient Time: Total time managing care of this patient today __30__ minutes.
--- NOTE | 2025-06-10 08:09 | P.BOP_ITS ---
Brief Operative Note Date of Service: 06/10/25 Pre-op diagnosis: Excess skin Post-op diagnosis: same Procedure: PROCEDURE: Panniculectomy with umbilical transposition and bilateral subcutaneous fat flaps INDICATION: This a 35 year old female who underwent laparoscopic sleeve gastrectomy on 12/11/2022. She had an excellent result achieving a BMI of 23.2 kg/m2 with a total weight loss of 124lbs, or 46.4% of her TBWL. As a result, she has developed panniculitis which has not resolved despite continuous use of clotrimazole ointment as well as skin irritation. On exam she has extreme skin laxity due to massive weight loss, with the abdominal pannus completely hanging 4cm below the pubis. Panniculectomy was recommended. We discussed the two options for the panniculectomy of using a combined vertical and horizontal incisions or just a horizontal (bikini) incision. It was my recommendation to do only horizontal incision based on her body habitus and skin laxity. The patient agreed with this. Risks and complications were discussed with the patient including bleeding, infection, umbilical loss, flap necrosis, asymmetry, dehiscence, seroma, VTE. The patient understood the risks and was in agreement to proceed with surgery. PROCEDURE: The incisions were appropriately marked at the preop area with the patient standing and laying down. After induction of general anesthesia, pneumatic compression devices were placed. The patient was prepped and draped in the usual sterile manner and the incisions were marked again and confirmed. The skin was infiltrated with lidocaine and epinephrine. The #10 blade scalpel was used for the large incisions and the #15 blade scalpel for the umbilicus. Cautery was used to divide the subcutaneous tissues until the fascia was identified. Then I used the cautery to separate the pannus from the fascia. The inferior incision was made initially and I mobilized the flap for a several centimeters cephalad to the umbilicus. The umbilicus was incised circumferentially and detached from the surrounding tissues all the way to the fascia while its stalk was preserved. With the patient in reflex position I confirmed that the skin flaps were appropriate and would allow for the tissues to come together with reasonable tension. At that point a horizontal incision was made 4 cm above the umbilicus. #10 blade was used for the skin, cautery for the dermis and for the remaining tissues. A subcutaneous fat flap was raised from the upper skin flap in order to fill the space under the skin and support the closure of the two flaps. In addition the inferior flap was mobilized caudally for a few centimeters to create a space for the subcutaneous fat flap as well as relieve tension from the closure. A circumferential incision was made at the area where the umbilicus would be re-implanted. The umbilicus was appropriately oriented and was delivered through the defect and was secured in place with a Alicia. No bleeding was noted anywhere. One AARON drain was placed from the left corner of the horizontal incision across the wound and was secured in place with a silk suture. The subcutaneous fat flap was secured under the inferior flap with several interrupted 3.0 Monocryl sutures. The two flaps were brought together and were attached at the midline of the horizontal incision with a #3.0 Monocryl suture. At that point the umbilicus was properly oriented and was re-approximated to the skin with 8 interrupted 3.0 Monocryl sutures. In a similar fashion the skin flaps were re-approximated with multiple 3.0 Monocryl sutures. The skin was closed in all incisions and umbilicus with 4.0 Monocryl sutures. Steri-strips, xeroform gauzes and gauzes were used to cover the incisions. An abdominal binder was also placed. The was awaken and was transferred to the recover room in a stable condition. I was present and performed the entire procedure. Ms. Gonzáles was the first aid teacher and Ms. Hill the second. Salomón Bower MD, PhD, FACS Surgeon: Johnathon Bower MD Surgeon: Johnathon Bower MD Anesthesia: GETA and local Was an Hotel Supplies Salesperson used for this Procedure?: Yes Hotel Supplies Salesperson: Brielle Gonzáles Estimated blood loss (mL): 10 Urine output (mL): 0 (No Robb to record output) Pathology: other (abdominal pannus) Condition: stable Disposition: PACU
--- NOTE | 2025-06-10 08:10 | HO.ANESPROP2 ---
Documented by User: Nicolle Nicholson NP 06/01/25 14:15 HPI - Anesthesia Eval Consult details Narrative: 35yo F for Panniculectomy, 06/10/25 s/p gastric sleeve 2022 Anesthesia Pre-Procedure Meds Is the patient on any of the following meds?: GLP1/DPP4 PMFSH Active Problems Active Problems: All Active Problems Chronic sinusitis (Acute) KACY positive (Acute) Visual aura (Acute) Restless legs syndrome (RLS) (Acute) Family history of cerebrovascular accident (CVA) in mother (Acute) Worsening headaches (Acute) Kidney stone (Acute) Rectal bleeding (Acute) LLQ abdominal pain (Acute) Excess skin (Acute) Overweight (Acute) Ankle swelling (Acute) Family history of systemic lupus erythematosus (SLE) in mother (Acute) Tick bite (Acute) Constipation (Acute) Illness (Acute) Lipoma (Acute) Right hip pain (Acute) Low back pain (Acute) Hearing loss (Acute) Vitamin B1 deficiency (Acute) Mood disorder due to known physiological condition, unspecified (Acute) Vitamin D deficiency (Acute) Obesity (Acute) HTN (hypertension) (Acute) Postgastrectomy malabsorption (Acute) Anemia (Acute) Physical exam (Acute) S/P laparoscopic sleeve gastrectomy (Acute 12/21/22) Past Medical History Medical History (Updated 05/26/25 @ 12:36 by Dayana Gill RN) Postoperative nausea Renal calculi Postgastrectomy malabsorption Anemia Physical exam Arthritis Asthma HTN (hypertension) Morbid obesity STI (sexually transmitted infection) Dysuria Dizziness Migraine with aura Hair loss Plantar fasciitis, bilateral Tendonitis of ankle, right Plantar fasciitis of right foot Right ankle pain Encounter for pre-employment examination Acute frontal sinusitis Asthma exacerbation Family History Family History Mother Stroke Hypertension Lupus Father Heart disease Brother Cancer Son No problems noted. Son No problems noted. Son No problems noted. Family history of problems with anesthesia: No Surgical History Surgical History (Updated 05/26/25 @ 12:23 by Dayana Gill RN) S/P laparoscopic sleeve gastrectomy (12/21/22) H/O colonoscopy History of ear surgery Hx of section History of surgery on lower extremity History of Problems with Anesthesia: No Social History Social History (Updated 05/26/25 @ 12:27 by Dayana Gill RN) Household Members: Family Household Members Other:: mom, kids Housing: Apartment Are you a primary personal care aide to a significant other at home: Yes (children) Do you presently have visiting nurse or other home services: No Alcohol intake: never Patient Tobacco Use Status: Current everyday Tobacco user Tobacco use type: Smokeless Tobacco Years Smoked: currently vaping-advised to refrain pre-op Smoked in Last 30 Days: Yes e-Cigarette/Vaping Use: Former Use Frequency of e-Cigarette/Vaping Use: daily Second Hand Smoke Exposure: No Use of substances other than those prescribed or required for medical reasons: No Substance Use Type: Unknown Have you been hit, kicked, punched, or otherwise hurt by someone within the past year? 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 Cognitive needs: No Hearing needs: No Vision needs: No Meds Allergies Allergy/AdvReac Type Severity Reaction Status Date / Time mushroom Allergy Severe Anaphylaxis Verified 05/31/25 11:32 Home Medications ?Medication ?Instructions ?Recorded ?Confirmed ?Last Taken ?Type Epi E-Z Pen PRN Anaphylaxis 05/26/25 05/26/25 Unknown History Exam Height,Weight and Vital Signs: Height 5 ft 6 in Weight 67.132 kg Pertinent Lab Results Pertinent Lab Results: Laboratory Tests 05/31/25 05/31/25 09:52 10:02 WBC 4.1 L RBC 4.07 L Hgb 11.8 L Hct 35.1 L MCV 86.2 MCH 29.0 MCHC 33.6 RDW 12.5 Plt Count 284 MPV 11.0 Immature Gran % (Auto) 0.0 Neut % (Auto) 61.3 Lymph % (Auto) 30.8 [place] % (Auto) 5.2 Eos % (Auto) 1.7 Baso % (Auto) 1.0 Lymph # (Auto) 1.3 [place] # (Auto) 0.2 Eos # (Auto) 0.1 Baso # (Auto) 0.0 Abs Immat Gran (auto) 0.00 Absolute Neuts (auto) 2.5 Absolute Nucleated RBC 0.000 Nucleated RBC % (auto) 0.0 PT 14.7 H INR 1.2 H APTT 30.1 Sodium 140 Potassium 3.8 Chloride 108 Carbon Dioxide 24 Anion Gap 12 BUN 12 Creatinine 0.61 Estim Creat Clear Calc 121.6 Estimated GFR > 60 Random Glucose 78 Estimat Average Glucose 97 Hemoglobin A1c % 5.0 Insulin Level 2 Calcium 9.3 Iron 105 TIBC 226 L % Saturation 46 Unsat Iron Binding 121 Ferritin 18 Total Bilirubin 0.7 AST 13 ALT 14 Alkaline Phosphatase 57 C-Reactive Protein < 0.04 Total Protein 7.4 Albumin 4.8 Triglycerides 42 Cholesterol 161 LDL Cholesterol, Calc 101 H HDL Cholesterol 52 Vitamin B12 599 25-OH Vitamin D Total 14.0 L TSH 0.74 Blood Type B Positive Antibody Screen NEGATIVE Narrative Narrative: EKG 2022 Vent. Rate : 082 BPM Atrial Rate : 082 BPM P-R Int : 168 ms QRS Dur : 088 ms QT Int : 390 ms P-R-T Axes : 042 031 007 degrees QTc Int : 455 ms Normal sinus rhythm Normal ECG When compared with ECG of 16-MAR-2002 09:22, No significant changes seen Assessment and Plan Assessment Anesthesia Assessment: Chart Reviewed Final Anesthetic Review Family History of Problems with Anesthesia: No History of Problems with Anesthesia: No Documented by User: Mirella Khanna DO 06/10/25 08:43 HPI - Anesthesia Eval Anesthesia Pre-Procedure Meds Is the patient on any of the following meds?: GLP1/DPP4 PMFSH Past Medical History Medical History (Updated 05/26/25 @ 12:36 by Dayana Gill RN) Postoperative nausea Renal calculi Postgastrectomy malabsorption Anemia Physical exam Arthritis Asthma HTN (hypertension) Morbid obesity STI (sexually transmitted infection) Dysuria Dizziness Migraine with aura Hair loss Plantar fasciitis, bilateral Tendonitis of ankle, right Plantar fasciitis of right foot Right ankle pain Encounter for pre-employment examination Acute frontal sinusitis Asthma exacerbation Family History Family History Mother Stroke Hypertension Lupus Father Heart disease Brother Cancer Son No problems noted. Son No problems noted. Son No problems noted. Family history of problems with anesthesia: No Surgical History Surgical History (Updated 05/26/25 @ 12:23 by Dayana Gill RN) S/P laparoscopic sleeve gastrectomy (12/21/22) H/O colonoscopy History of ear surgery Hx of section History of surgery on lower extremity History of Problems with Anesthesia: Yes (PONV) Social History Social History (Updated 05/26/25 @ 12:27 by Dayana Gill RN) Household Members: Family Household Members Other:: mom, kids Housing: Apartment Are you a primary personal care aide to a significant other at home: Yes (children) Do you presently have visiting nurse or other home services: No Alcohol intake: never Patient Tobacco Use Status: Current everyday Tobacco user Tobacco use type: Smokeless Tobacco Years Smoked: currently vaping-advised to refrain pre-op Smoked in Last 30 Days: Yes e-Cigarette/Vaping Use: Former Use Frequency of e-Cigarette/Vaping Use: daily Second Hand Smoke Exposure: No Use of substances other than those prescribed or required for medical reasons: No Substance Use Type: Unknown Have you been hit, kicked, punched, or otherwise hurt by someone within the past year? 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 Cognitive needs: No Hearing needs: No Vision needs: No Meds Allergies Allergy/AdvReac Type Severity Reaction Status Date / Time mushroom Allergy Severe Anaphylaxis Verified 05/31/25 11:32 Home Medications ?Medication ?Instructions ?Recorded ?Confirmed ?Last Taken ?Type Epi E-Z Pen PRN Anaphylaxis 05/26/25 05/26/25 Unknown History Exam Exam Date and Time: 06/10/25 0810 Height,Weight and Vital Signs: Vital Signs Temperature 97.7 F 06/10/25 06:57 Pulse Rate 94 06/10/25 06:57 Respiratory Rate 16 06/10/25 06:57 Blood Pressure 103/70 06/10/25 06:57 Pulse Oximetry 100 06/10/25 06:57 Oxygen Delivery Method Room Air 06/10/25 06:57 Temperature 97.7 F 06/10/25 06:57 Pulse Rate 94 06/10/25 06:57 Respiratory Rate 16 06/10/25 06:57 Blood Pressure 103/70 06/10/25 06:57 Pulse Oximetry 100 06/10/25 06:57 Oxygen Delivery Method Room Air 06/10/25 06:57 Height 5 ft 6 in Weight 67.132 kg Airway Mallampati Class: I TM Dist: >3cm Neck ROM: Full Loose/Missing/Broken Teeth: No (patient denies any loose or broken teeth) Heart: S1S2 Lungs: CTAB Assessment and Plan Assessment Anesthesia Assessment: Anesthesia Plan Discussed and Chart Reviewed Final Anesthetic Review Family History of Problems with Anesthesia: No History of Problems with Anesthesia: Yes (PONV) NPO: Yes ASA Class: II Final Preanesthetic Review: No Changes in Pt Med Stat, Meds/Allgs Chart Reviewed, Consent Obtained/Reviewed and Anes Risks/Benef Reviewed Patient Risk: Low Procedure Risk: Low Anesthetic Plan Anesthetic Plan: GA and Agree w/ Assess. and Plan Disposition: Standard PACU
[2025-06-10] MEDS: Aprepitant 32 MG/4.4 ML VIAL IVPUSH (08:11)
[2025-06-10 14:47] LABS: HBS Num1 711.89 mIU/mL (0-7.99); HBc Num1 0.06 S/CO (0.00-0.79); HBsAGNum1 0.47 S/CO (0.00-0.99); HIV Num 1 0.05 S/CO (0.00-0.99); Hepatitis B Surface Antigen Negative (Negative); ~HepC Num1 0.08 S/CO (0.00-0.79); ~Hepatitis B Surface Antibody REACTIVE (Nonreactive)
[2025-06-10 15:02] LABS: Hepatitis C Ab Exposure Source NonReactive (Nonreactive)
== END 2025-06-10 15:23 | disposition home or self-care (01) ==
PROVIDERS: Nurse Practitioner; Physician Assistant Surgical; PCP Nurse Practitioner Family; Visit Provider Surgery
PROC: 0JB80ZZ Excision of Abdomen Subcutaneous Tissue and Fascia, Open Approach (ICD-10-PCS; CPT 15830; principal; 2025-06-10 08:00)
DX: L98.7 Excessive and redundant skin and subcutaneous tissue (principal); E65 Localized adiposity; M79.3 Panniculitis, unspecified; K91.2 Postsurgical malabsorption, not elsewhere classified; Z90.3 Acquired absence of stomach [part of]; Z98.84 Bariatric surgery status; I10 Essential (primary) hypertension; J45.909 Unspecified asthma, uncomplicated; D64.9 Anemia, unspecified; M72.2 Plantar fascial fibromatosis; L65.9 Nonscarring hair loss, unspecified; G43.109 Migraine with aura, not intractable, without status migrainosus; R30.0 Dysuria; R42 Dizziness and giddiness; M19.90 Unspecified osteoarthritis, unspecified site; Z99.89 Dependence on other enabling machines and devices; Z79.85 Long-term (current) use of injectable non-insulin antidiabetic drugs; Z79.899 Other long term (current) drug therapy; Z91.018 Allergy to other foods; Z98.890 Other specified postprocedural states; Z87.891 Personal history of nicotine dependence
CPT/HCPCS: 15830; 15847; 36415; 80053; 80061; 81025; 82306; 82607; 82728; 83036; 83525; 83540; 84425; 84443; 84590; 84630; 85025; 85610; 85730; 86140; 86803; 86850; 86900; 86901; 88304; 88305; C9145; J0131; J0690; J1100; J1171; J1630; J2003; J2004; J2250; J2371; J2405; J2704; J3010; J3374

== ENCOUNTER → 2025-06-10 05:47 | Outpatient (BNV) | payer OTHER, SELFPAY | PROVIDERS: PCP Nurse Practitioner Family; Visit Provider Nurse Practitioner | DX: M79.3 Panniculitis, unspecified (principal); L98.7 Excessive and redundant skin and subcutaneous tissue | CPT/HCPCS: 15830; 99499 ==

== ENCOUNTER 2025-06-16 11:20 | Outpatient (AMB) | payer OTHER, SELFPAY ==
--- OUTSIDE RECORDS SUMMARY | 2025-06-16 11:23 | XMS_ITS | Patient Health Record ---
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 Civil [employer] Name Role Phone YSABEL FRANKS Primary Care Provider Vasyl Ashley Jr Allergies Allergen (clinical drug ingredient) Drug/Non Drug Allergy documented on EMR Reaction Allergy Type Onset Date Status mushrooms (uncoded) Unknown Allergy Active Reason For Referral No Information Medications Medication SIG (Take, Route, Frequency, Duration) Notes Start Date End Date Status Lisinopril Active Topiramate Active Colyte with Flavor Packs 240 GM Solution Reconstituted As directed Orally Over the specified time.; Duration: 1 day(s) 10/06/2015 Active Social History Social History Additional Details Category Social Info Options Details Miscellaneous: Marital status: single 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 Problems Problem Type SNOMED Code ICD Code Onset Dates Problem Status W/U Status Risk Notes Problem Rectal bleeding (47104405) Rectal bleeding (K62.5) Active confirmed Plan Of Treatment Future Test Test Name Order Date COLONOSCOPY 10/06/2015 Insurance Providers Payer Name Payer Address Payer Phone Subscriber Number Group Number Insured Name Patient Relationship to Insured Coverage Start Date Coverage End Date MED[place]ARE OF [place] [address] [place] [phone] [id number] CHIDI CEJA Self - patient is the insured MEDICAID OF [facility] [address] [place] [phone] [id number] CHIDI CEJA Self - patient is the insured Medical (General) History Medical History History ICD Code hypertension anxiety/depression asthma Surgical History Surgery Date(Month/Year) section 2006,2011 broken leg right 2011
--- OUTSIDE RECORDS SUMMARY | 2025-06-16 11:23 | XMS_ITS | Clinical Summary ---
Author Organization Patient Business Ser [facility] Address [address] [place] [address] Care Team Providers Care Hydrometallurgical Engineer Name Role Phone Johnny Aguilar NP Primary Care Provider Surgical History Surgery Date Site/Laterality Comments SECTION PROCEDURE: HISTORICAL DELIVERY TONSILLECTOMY ADENOIDECTOMY, BILATERAL MYRINGOTOMY AND TUBES PROCEDURE: [place] TONSILLECTOMY & ADENOIDECTOMY <AGE 13 OTHER SURGICAL HISTORY 11/2022 PROCEDURE: HISTORY OTHER; COMMENT: bariatric surgery Medical History Medical History Date Comments Chlamydia contact, treated DX:Ch lamydia contact, treated Bipolar 1 disorder ([facility] V24, [facility] V28) DX:Bipolar 1 disorder ([facility] [...] on file Sexual Orientation Not on file Last Filed Vital Signs Vital Sign Reading [...] RESULTING AGENCY - 01/10/2024 12:45 PM EDT [id number]: THIS REPORT WAS AMENDED TO CORRECT THE [...] HX: NEG 2020, LMP 12/08/2023. Domitila Cast [facility] CYTOLOGY ORDERABLES Edite d Result - Final HISTORICAL TESTING LAB RESULTING AGENCY from Last 3 Months or Most Recently Relevant to Health Maintenance Insurance [facility] MEDICARE Member Subscriber Plan / Payer (Ef fective 2016-Present) Name:JOSSE CHRISTINA Relation to Subscriber:Self Name:Josse Luna Christina Sai Payer ID:[id number] Group ID:[id number] Type:Not on file Address: [facility] [address] [address] Care Teams Hydrometallurgical Engineer Relationship Specialty Start Date End Date Johnny Aguilar NP [address], [place] PCP - General 07/27/16
[2025-06-16 11:35] VITALS: BP 151/73; PULSE 108; O2SAT 100
--- NOTE | 2025-06-16 11:35 | MHC.OFFVISWM ---
VS Expanded 06/16/25 11:35 BP 151/73 H Blood Pressure Location Lt brachial Blood Pressure Position Sitting Pulse 108 H Pulse Source Pulse Oximeter Pulse Oximetry 100 Oxygen Delivery Method Room Air Intake Visit Reasons: (OV) s/p Panniculectomy 06/10/25 Allergies mushroom Allergy (Severe, Verified 06/16/25 11:36) Anaphylaxis Medication List - Last Reconciled 06/16/25 by LILA Hernandez albuterol sulfate 90 mcg/actuation 2 puffs inhalation Q4-6H PRN albuterol sulfate 2.5 mg (3 mL) inhalation QID PRN 90 days calcium carbonate 200 mg PO DAILY cane As directed cephalexin 500 mg PO Q12H cholecalciferol (vitamin D3) 125 mcg PO DAILY 90 days clotrimazole 1% 1 appl topical BID docusate sodium 100 mg PO DAILY 30 days docusate sodium (Colace) 100 mg PO DAILY [Epi E-Z Pen PRN] ondansetron 4 mg PO Q12H ondansetron 4 mg PO Q8H PRN sennosides (senna) 17.2 mg (2 x 8.6 mg) PO BEDTIME PRN tirzepatide (weight loss) (Zepbound) 10 mg (0.5 mL) subcut QWEEK vitamin B complex 1 tab PO DAILY 90 days zinc gluconate 30 mg PO DAILY HPI Comments Details: Pt is 1wk s/p panniculectomy 06/10/2025. Tolerating meal plan per Dr. Dahl Taking abx. Wearing abdominal binder at all times. Drain output has been about 25cc for the last few days. [facility] Medical History (Updated 05/26/25 @ 12:36 by Dayana Gill, RN) Postoperative nausea Renal calculi Postgastrectomy malabsorption Anemia Physical exam Arthritis Asthma HTN (hypertension) Morbid obesity STI (sexually transmitted infection) Dysuria Dizziness Migraine with aura Hair loss Plantar fasciitis, bilateral Tendonitis of ankle, right Plantar fasciitis of right foot Right ankle pain Encounter for pre-employment examination Acute frontal sinusitis Asthma exacerbation Surgical History (Updated 06/16/25 @ 12:08 by LILA Hernandez) S/P laparoscopic sleeve gastrectomy (12/21/22) H/O colonoscopy History of ear surgery Hx of section History of surgery on lower extremity Family History Mother Stroke Hypertension Lupus Father Heart disease Brother Cancer Son No problems noted. Son No problems noted. Son No problems noted. Social History (Updated 05/26/25 @ 12:27 by Dayana Gill RN) Household Members: Family Household Members Other:: mom, kids Housing: Apartment Are you a primary healthcare administration internship to a significant other at home: Yes (children) Do you presently have visiting nurse or other home services: No Alcohol intake: never Patient Tobacco Use Status: Current everyday Tobacco user Tobacco use type: Smokeless Tobacco Years Smoked: currently vaping-advised to refrain pre-op e-Cigarette/Vaping Use: Former Use Second Hand Smoke Exposure: No Substance Use Type: Unknown service: No Current occupational status: employed 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 Cognitive needs: No Hearing needs: No Vision needs: No Physical Exam Vital Signs: Last Vital Signs Pulse 108 H 06/16/25 11:35 BP 151/73 H 06/16/25 11:35 Pulse Ox 100 06/16/25 11:35 Oxygen Delivery Method Room Air 06/16/25 11:35 Const General: cooperative, comfortable and no acute distress Orientation/consciousness: patient oriented x3 GI Other: soft, nontender, nondistended, incisions healing well with steri-strips intact, umbilicus viable Neuro General: patient oriented x3 Assessment & Plan Assessment & Plan (1) S/P laparoscopic sleeve gastrectomy: Onset Date: 12/21/22 Code(s): Z98.84 - Bariatric surgery status Category: Surgical (2) S/P panniculectomy: Code(s): Z98.890 - Other specified postprocedural states Category: Surgical Plan Continue high protein diet. ABX keflex 500 BID x 2 weeks, extended as needed?(at least until drain comes out plus 1 week).? Drain out after consistently 20 mL or less daily.? Abdominal binder at all times except for care x 1 month?MINIMUM. If there are concerns longer.? No driving?until drain out.? No walking outside or exercise for 6 weeks minimum. Walking in the house ok after today. Assistance getting up for 4 weeks minimum.?No lifting greater than?10 pounds x 2 months and no abdominal exercises x 3 months.
== END 2025-06-16 12:13 | disposition home or self-care (01) ==
LOC: HO.HBS 11:20
PROVIDERS: PCP Nurse Practitioner Family; Visit Provider Physician Assistant Surgical
DX: Z71.3 Dietary counseling and surveillance (principal); Z98.84 Bariatric surgery status; Z98.890 Other specified postprocedural states
CPT/HCPCS: 99024

== ENCOUNTER → 2025-06-16 11:20 | Outpatient (BNVA) | payer OTHER, SELFPAY | PROVIDERS: PCP Nurse Practitioner Family; Visit Provider Physician Assistant Surgical | DX: Z48.815 Encounter for surgical aftercare following surgery on the digestive system (principal); Z98.84 Bariatric surgery status; Z98.890 Other specified postprocedural states | CPT/HCPCS: 99212 ==

== ENCOUNTER 2025-06-17 19:21 | Emergency (ER) | payer OTHER, SELFPAY ==
--- NOTE | ~2025-06-17 | XR_ITS ---
CLINICAL HISTORY: abd pain ?constipation 1 view abdomen Comparison: CT/SR - CT ABDOMEN PELVIS W IV CON - 10/27/24 16:58 EDT Findings: Moderate stool burden in the distal colon. No bowel obstruction. Multiple surgical clips throughout the abdomen. No pneumoperitoneum or pneumatosis. IMPRESSION: Moderate stool burden in the distal colon. This document has been electronically signed by: Guille Brownlee MD on 06/17/2025 20:10:03
[2025-06-17 19:29] VITALS: BP 147/66; PULSE 125; RESP 18; TEMP 36.6; O2SAT 98; BMI 22.8
--- NOTE | 2025-06-17 19:30 | ED_ITS ---
HPI - General Adult General Chief complaint: General Medical Stated complaint: constipation/ bowel obstruction Time Seen by Provider: 06/17/25 21:04 Source: patient Mode of arrival: ambulatory Limitations: no limitations History of Present Illness ED Provider: Keith SHARP HPI narrative: The patient is a 35-year-old female who is currently one week status-post panniculectomy performed by . She reports she is passing flatus, and denies nausea/vomiting, patient reports approximately seven days of progressively worsening constipation. She feels a constant urge to defecate but is unable to push stool out, describing a sensation of ?stuck? stool. 1 hour ago the patient developed a swollen sensation of her rectum, with severe pain with sitting or lying on her back. The patient reports she has been taking stool softeners since surgery and, prior to arrival, tried Milk of Magnesia and two enemas without relief. The patient reports she has suffered from recurrent constipation since even before the surgery. The patient denies associated abdominal pain, fever, vomiting, or rectal bleeding. The patient does report however her menses began today. Patient states she is maintaining adequate oral fluid intake and following diet as outlined by her specialist/surgeon. Related Data Home Medications ?Medication ?Instructions ?Recorded ?Confirmed Epi E-Z Pen PRN Anaphylaxis 05/26/25 Previous Rx's ?Medication ?Instructions ?Recorded albuterol sulfate 90 mcg/actuation 2 puff inhalation Q 4-6H PRN 05/24/21 aerosol inhaler shortness of breath or wheez ing #18 grams albuterol sulfate 2.5 mg/3 mL 2.5 mg (3 mL) inhalation QID PRN 06/22/21 (0.083 %) solution for nebulization shortness of breat h or wheezing 90 days #180 mL calcium carbonate 200 mg PO DAILY #90 tabs docusate sodium 100 mg capsule 100 mg PO DAILY 30 days #30 caps 04/03/23 vitamin B complex 1 tab PO DAILY 90 days #90 t abs 05/23/23 cholecalciferol (vitamin D3) 125 125 mcg PO DAILY 90 d ays #90 caps 12/13/23 mcg (5,000 unit) capsule cane #1 ea 04/01/24 zinc gluconate 30 mg tablet 30 mg PO DAILY #90 tabs sennosides 8.6 mg tablet (senna) 17.2 mg (2 x 8.6 mg) PO BEDTIME 10/27/24 PRN for constipation #90 tabs clotrimazole 1 % topical cream 1 appl topical BID #45 grams 11/11/24 ondansetron 4 mg disintegrating 4 mg PO Q8H PRN nausea and 03/15/25 tablet vomiting #30 tabs tirzepatide (weight loss) 10 10 mg (0.5 mL) subcut QWE EK #2 mL 04/26/25 mg/0.5 mL subcutaneous pen injector (Zepbound) cephalexin 500 mg capsule 500 mg PO Q12H #60 caps 09/15 docusate sodium 100 mg capsule 100 mg PO DAILY #90 cap s 05/26/25 (Colace) ondansetron 4 mg disintegrating 4 mg PO Q12H nausea an d vomiting 05/26/25 tablet #20 tabs Allergies Allergy/AdvReac Type Severity Reaction Status Date / Time mushroom Allergy Severe Anaphylaxis Verified 06/17/25 19:31 Review of Systems 2 Review of Systems: Yes all other systems are reviewed and are negative [facility] Past Medical History Medical History (Updated 06/17/25 @ 22:34 by Keith Pradhan PA-C) Postoperative nausea Renal calculi Postgastrectomy malabsorption Anemia Physical exam Arthritis Asthma HTN (hypertension) Morbid obesity STI (sexually transmitted infection) Dysuria Dizziness Migraine with aura Hair loss Plantar fasciitis, bilateral Tendonitis of ankle, right Plantar fasciitis of right foot Right ankle pain Encounter for pre-employment examination Acute frontal sinusitis Asthma exacerbation Surgical History (Updated 06/16/25 @ 12:08 by LILA Hernandez) S/P laparoscopic sleeve gastrectomy (12/21/22) H/O colonoscopy History of ear surgery Hx of section History of surgery on lower extremity Family History Family History Mother Stroke Hypertension Lupus Father Heart disease Brother Cancer Son No problems noted. Son No problems noted. Son No problems noted. Social History Social History (Updated 05/26/25 @ 12:27 by Dayana Gill RN) Household Members: Family Household Members Other:: mom, kids Housing: Apartment Are you a primary healthcare specialist to a significant other at home: Yes (children) Do you presently have visiting nurse or other home services: No Alcohol intake: never Patient Tobacco Use Status: Current everyday Tobacco user Tobacco use type: Smokeless Tobacco Years Smoked: currently vaping-advised to refrain pre-op e-Cigarette/Vaping Use: Former Use Second Hand Smoke Exposure: No Substance Use Type: Unknown service: No Current occupational status: employed 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 Vital signs as documented. HEAD: Atraumatic, normocephalic. EYES: EOMs grossly intact, pupils equal, conjunctiva clear, no exudate. ENT: Nares patent, no discharge. Airway patent, no audible stridor, visible mucosa is pink and moist without noted lesions. NECK: Trachea is midline, no obvious masses or gross abnormalities. CHEST: Symmetric movement, normal appearance. LUNGS: LS present and CTAB, no w/r/r. Non-labored work of breathing. CARDIAC: Regular Rhythm, S1/S2 appreciated, no murmurs, rubs or gallops. ABDOMEN: Abdomen soft and non-tender x4 quadrants, no palpable masses or organomegaly. Post surgical drains in place with serosanguineous drainage as expected postoperatively. : External rectal exam shows no fissures, fistulas, hemorrhoids, abscess, or bleeding. Rectal exam demonstrates a large stool ball in the rectal vault, however it is out of reach of a digit. EXTREMITIES: Normal tone, moves all extremities spontaneously without reported pain. No obvious acute injury or deformity noted. NEURO: Alert and oriented x3, CN II-XII appear grossly intact. Cerebellar Functioning grossly intact. No obvious sensory or motor deficits. Speech clear and appropriate. PSYCH: normal affect, appropriate eye contact, fluid speech, with appropriate response to questioning. No reported suicidality or homicidality. SKIN: Warm, dry, color appropriate, normal turgor. No rashes noted. Vital Signs: Vital Signs - 24 hr 06/17/25 19:29 Temperature 98 F Pulse Rate 125 H Respiratory Rate 18 Blood Pressure 147/66 H Pulse Oximetry 98 Oxygen Delivery Method Room Air BMI result Body Mass Index 22.8 CONSTITUTIONAL: The patient appears uncomfortable, but otherwise non-toxic, well nourished and in no acute distress. Vital signs as documented. HEAD: Atraumatic, normocephalic. EYES: EOMs grossly intact, pupils equal, conjunctiva clear, no exudate. ENT: Nares patent, no discharge. Airway patent, no audible stridor, visible mucosa is pink and moist without noted lesions. NECK: Trachea is midline, no obvious masses or gross abnormalities. CHEST: Symmetric movement, normal appearance. LUNGS: LS present and CTAB, no w/r/r. Non-labored work of breathing. CARDIAC: Regular Rhythm, S1/S2 appreciated, no murmurs, rubs or gallops. ABDOMEN: Abdomen soft and non-tender x4 quadrants, no palpable masses or organomegaly. : External exam shows no fissures, fistulas, hemorrhoids, abscess, or bleeding. Rectal exam demonstrates a large stool ball in the rectal vault however it is out of reach of the digit. EXTREMITIES: Normal tone, moves all extremities spontaneously without reported pain. No obvious acute injury or deformity noted. NEURO: Alert and oriented x3, CN II-XII appear grossly intact. Cerebellar Functioning grossly intact. No obvious sensory or motor deficits. Speech clear and appropriate. PSYCH: normal affect, appropriate eye contact, fluid speech, with appropriate response to questioning. No reported suicidality or homicidality. SKIN: Warm, dry, color appropriate, normal turgor. No rashes noted. Course Course Course Narrative: This is a Rapid Medical Examination (RME) performed by Nabila Arce PA-C in triage. Full HPI, ROS, assessment and treatment plan per primary provider in the Main ED. Hx: 35 yo F here w/ abd pain, rectal pain, constipation x1 week since panniculectomy. taking stool softeners/ laxatives without BM. passing gas. no N/V. PE/vitals: very uncomfortable appearing, will not sit d/t pain Plan: labs, KUB Medications Administered Discontinued Medications Generic Name Dose Route Start Last Admin Trade Name Freq PRN Reason Stop Dose Admin Sodium Chloride 1,000 mls @ 999 mls/hr 06/17/25 21:45 06/17/25 22:28 Ns IV 06/17/25 22:45 Not Given .Q1H1M SOFIYA Ketorolac Tromethamine 15 mg 06/17/25 21:35 06/17/25 22:28 Ketorolac Tromethamine 15 Mg/Ml Vial IVPUSH 06/17/25 21:36 Not Given ONCE ONE Magnesium Citrate 300 ml 06/17/25 21:35 06/17/25 22:25 Magnesium Citrate 300 Ml Solution PO 06/17/25 21:36 300 ml ONCE ONE Administration Ondansetron HCl 4 mg 06/17/25 22:33 06/17/25 22:37 Ondansetron Odt 4 Mg Tab.Rapdis TRANSLINGU 06/17/25 22:34 4 mg ONCE ONE Administration Medical Decision Making Medical Decision Making MDM Narrative: 9:37 PM 06/17/2025 (Nabila SHARP): The patient is a 35-year-old female who is currently one week status-post panniculectomy performed by . She reports she is passing flatus, and denies nausea/vomiting, patient reports approximately seven days of progressively worsening constipation. She feels a constant urge to defecate but is unable to push stool out, describing a sensation of ?stuck? stool. 1 hour ago the patient developed a swollen sensation of her rectum, with severe pain with sitting or lying on her back. The patient reports she has been taking stool softeners since surgery and, prior to arrival, tried Milk of Magnesia and two enemas without relief. The patient reports she has suffered from recurrent constipation since even before the surgery. The patient denies associated abdominal pain, fever, vomiting, or rectal bleeding. The patient does report however her menses began today. Patient states she is maintaining adequate oral fluid intake and following diet as outlined by her specialist/surgeon. On exam patient's abdomen is nontender, drains in place with serosanguineous drainage as expected postoperatively. The patient's rectal exam shows no fissures, fistulas, hemorrhoids, abscess, or bleeding. Rectal exam demonstrates a large stool ball in the rectal vault however it is out of reach of the digit. The patient's laboratory evaluation shows minimal leukocytosis of 12.9, no significant anemia, no electrolyte abnormality, or SYLVESTER. The patient's lipase is normal, beta hCG is negative. KUB shows moderate stool burden in the distal colon. No evidence of bowel obstruction, pneumoperitoneum, or pneumatosis. The patient is likely suffering from postoperative constipation refractory to enema and milk of magnesia. The patient will be treated with magnesium citrate and IV fluid hydration. If patient does not experienced a successful bowel movement following magnesium citrate and hydration we will consider milk and molasses enema. 10:29 PM 06/17/2025 (Nabila SHARP): Despite originally agreed to the care plan described above, the patient is refusing IV fluids and Toradol. The patient has drank the magnesium citrate and is currently requesting discharge home. The patient states she will follow up with her surgeon by calling tomorrow. At this time, seeing as the patient's KUB shows no evidence of SBO, and patient is not actively vomiting, we will discharge with supportive care. Of note patient reports after drinking magnesium citrate she felt nauseous, Zofran will be provided. Admission/Observation Consideration of admission/observation: Escalation of care including admission/observation considered Lab Data MDM Lab Attestation statement: I reviewed the patient's lab results. 06/17/25 19:38 06/17/25 19:38 Labs: Lab Results 06/17/25 Range/Units 19:38 WBC 12.9 H (4.8-10.8) X10*3/uL RBC 3.98 L (4.20-5.50) X10*6/uL Hgb 11.5 L (12.0-16.0) g/dl Hct 34.0 L (37.0-47.0) % MCV 85.4 (80.0-98.0) fL MCH 28.9 (27.0-33.0) pg MCHC 33.8 (31.0-35.0) g/dl RDW 12.1 (11.0-16.0) % Plt Count 351 (160-400) X10*3/uL MPV 10.1 (9.4-12.3) fL Immature Gran % (Auto) 0.2 (0.0-0.4) % Neut % (Auto) 88.6 H (45-73) % Lymph % (Auto) 8.2 L (20-40) % Scurry % (Auto) 2.0 (2-11) % Eos % (Auto) 0.7 (0-4) % Baso % (Auto) 0.3 (0-2) % Lymph # (Auto) 1.1 L (1.2-4.9) X10*3/uL Scurry # (Auto) 0.3 (0.1-1.2) X10*3/uL Eos # (Auto) 0.1 (0.0-0.4) X10*3/uL Baso # (Auto) 0.0 (0.0-0.2) X10*3/uL Abs Immat Gran (auto) 0.03 (0.00-0.03) X10*3/uL Absolute Neuts (auto) 11.4 H (2.0-8.3) x10*3/uL Absolute Nucleated RBC 0.000 (0.0-0.012) X10*3/uL Nucleated RBC % (auto) 0.0 (0.0-0.2) /100WBC Sodium 140 (135-145) mmol/L Potassium 3.7 (3.3-5.1) mmol/L Chloride 105 (96-108) mmol/L Carbon Dioxide 26 (22-29) mmol/L Anion Gap 13 (12-20) BUN 20 H (9-16) mg/dL Creatinine 0.62 (0.5-1.4) mg/dL Estim Creat Clear Calc 119.7 Estimated GFR > 60 Random Glucose 128 H (60-115) mg/dL Calcium 9.5 (8.4-10.2) mg/dL Magnesium 2.1 (1.6-2.6) mg/dL Total Bilirubin 0.4 (0.0-1.0) mg/dL AST 26 (5-31) U/L ALT 22 (0-31) U/L Alkaline Phosphatase 59 (39-117) U/L Total Protein 7.7 (6.5-8.0) g/dL Albumin 4.7 (3.5-5.0) g/dL Lipase 47 (8-78) U/L Beta HCG, Quant < 2 mIU/mL Radiology Impression Discussion of test interpretation with radiology: I have reviewed the radiologist's reading. Radiologist Impression: 1 view abdomen Comparison: CT/SR - CT ABDOMEN PELVIS W IV CON - 10/27/24 16:58 EDT Findings: Moderate stool burden in the distal colon. No bowel obstruction. Multiple surgical clips throughout the abdomen. No pneumoperitoneum or pneumatosis. IMPRESSION: Moderate stool burden in the distal colon. This document has been electronically signed by: Guille Brownlee MD on 06/17/2025 20:10:03 External Record Review External record reviewed: Inpatient record, Outpatient record and Prior outpatient labs Prescription Management I considered prescription management with: Pain Medication and Antibiotic Discharge Plan Discharge Clinical Impression: Constipation Qualifiers: Constipation type: unspecified constipation type Qualified Code(s): K59.00 - Constipation, unspecified Patient Disposition: Home, Self-Care Instructions: Constipation (ED), High Fiber Diet (ED) Additional Instructions: Thank you for choosing [facility]'s Emergency Department for your care today. Thankfully your laboratory evaluation today is reassuring, and your abdominal x- ray shows no evidence of a small-bowel obstruction. At this time there is no indication for admission to the hospital or continued ED observation, and it is safe to discharge you home. During your ankle exam, a moderate-sized stool ball was palpated but was unable to be retrieved for disimpaction. You were treated with magnesium citrate and then requested to return home to follow up with your surgeon tomorrow. Please contact your surgeon by calling for a follow up appointment. Please stay well hydrated and eat a high-fiber diet. Please continue using milk of magnesia and stool softeners until you have a successful bowel movement. You should take alternating (staggered) doses of ibuprofen 600mg and Tylenol 1000mg every 4 hours as needed for any additional pain. Please follow up with your primary care physician for re-evaluation, additional management of your symptoms, and continued preventative care. If you do not have a primary care physician, please call the [facility] at [phone] to establish a new primary care physician. While waiting to establish your new primary care physician, you can call our Walk-in Care Clinic at [phone] for non-emergency needs. Please return to the emergency department if you develop a severe or sudden change in your symptoms, a fever over 100.4 that does not improve with Tylenol or Ibuprofen, recurrent vomiting, or any other new or worsening symptoms or concerns. Prescriptions: No Action albuterol sulfate 2.5 mg /3 mL (0.083 %) solution for nebulization 2.5 mg inhalation QID PRN (Reason: shortness of breath or wheezing) 90 Days Qty: 180 0RF calcium carbonate 200 mg calcium (500 mg) tablet,chewable 200 mg PO DAILY Qty: 90 0RF vitamin B complex Tablet 1 tab PO DAILY 90 Days Qty: 90 0RF cholecalciferol (vitamin D3) 125 mcg (5,000 unit) capsule 125 mcg PO DAILY 90 Days Qty: 90 2RF (DME) cane Device See Rx Instructions .Route Qty: 1 0RF Rx Instructions: As directed zinc gluconate 30 mg tablet 30 mg PO DAILY Qty: 90 0RF sennosides [senna] 8.6 mg tablet 17.2 mg PO BEDTIME PRN (Reason: for constipation) Qty: 90 0RF ondansetron 4 mg tablet,disintegrating 4 mg PO Q8H PRN (Reason: nausea and vomiting) Qty: 30 2RF Zepbound 10 mg/0.5 mL pen injector 10 mg subcut QWEEK Qty: 2 0RF Epi E-Z Pen PRN (Reason: Anaphylaxis) albuterol sulfate 90 mcg/actuation HFA aerosol inhaler 2 puff inhalation Q4-6H PRN (Reason: shortness of breath or wheezing) Qty: 18 0RF docusate sodium 100 mg capsule 100 mg PO DAILY 30 Days Qty: 30 2RF clotrimazole 1 % cream 1 appl topical BID Qty: 45 3RF cephalexin 500 mg capsule 500 mg PO Q12H Qty: 60 2RF docusate sodium [Colace] 100 mg capsule 100 mg PO DAILY Qty: 90 0RF ondansetron 4 mg tablet,disintegrating 4 mg PO Q12H Qty: 20 0RF Referrals: Johnny Aguilar, COMMUNICATIONS ELECTRICIAN SUPERVISOR-BC [Primary Care Provider, Internal Medicine] Clinical Impression: Constipation Interventions: ED Discharge Assessment Last Done: 06/17/25 22:45 Discharge Date/Time: 06/17/25 22:45 Print Language: Citizen Of [place]
[2025-06-17 19:42] LABS: MANUAL DIFF FLAG NO
[2025-06-17 19:43] LABS: Hematocrit 34.0 % (37.0-47.0); Hemoglobin 11.5 g/dl (12.0-16.0); Imm Gran Abs Auto 0.03 X10*3/uL (0.00-0.03); Imm Gran Pct Auto 0.2 % (0.0-0.4); Lymphocytes Absolute Auto 1.1 X10*3/uL (1.2-4.9); Mean Corpuscular HGB Conc 33.8 g/dl (31.0-35.0); Mean Corpuscular Hemoglobin 28.9 pg (27.0-33.0); Mean Corpuscular Volume 85.4 fL (80.0-98.0); NRBC Abs Auto 0.000 X10*3/uL (0.0-0.012); NRBC Pct Auto 0.0 /100WBC (0.0-0.2); Platelet Count 351 X10*3/uL (160-400); Red Blood Count 3.98 X10*6/uL (4.20-5.50); White Blood Count 12.9 X10*3/uL (4.8-10.8)
[2025-06-17 20:05] LABS: Alanine Aminotransferase 22 U/L (0-31); Albumin Level 4.7 g/dL (3.5-5.0); Alkaline Phosphatase 59 U/L (39-117); Anion Gap 13 (12-20); Aspartate Amino Transferase 26 U/L (5-31); Blood Urea Nitrogen 20 mg/dL (9-16); Calcium 9.5 mg/dL (8.4-10.2); Carbon Dioxide 26 mmol/L (22-29); Chloride 105 mmol/L (96-108); Creatinine Clr Calc Pharmacy 119.7; Estimated Glomerular Filt Rate > 60; Lipase 47 U/L (8-78); Magnesium 2.1 mg/dL (1.6-2.6); Potassium 3.7 mmol/L (3.3-5.1); Sodium 140 mmol/L (135-145); Total Protein 7.7 g/dL (6.5-8.0)
--- OUTSIDE RECORDS SUMMARY | 2025-06-17 21:24 | XMS_ITS | Patient Health Record ---
Author Organization [facility] Address [address] [place] [address] Care Team Providers Care Rental Salesperson Name Role Phone YSABEL FRANKS Primary Care Provider Vasyl Ashley Jr [phone] Allergies Allergen (clinical drug ingredient) Drug/Non Drug [...] W/U Status Risk Notes Problem Rectal bleeding (39068984) Rectal bleeding (K62.5) Active confirmed Plan Of Treatment Future Test Test Name Order Date COLONOSCOPY 10/06/2015 Insurance Providers Payer Name Payer Address Payer Phone Subscriber Number Group Number Insured Name Patient Relationship to Insured Coverage Start Date Coverage End Date MEDICARE OF [place] [address] [place] [phone] [id number] CHIDI CEJA Self - patient is the insured MEDICAID OF [facility] [address] [place] [address] [id number] CHIDI CEJA Self - patient is the insured Medical (General) History Medical History History ICD Code hypertension anxiety/depression asthma Surgical History Surgery Date(Month/Year) section 2006,2011 broken leg right 2011
--- OUTSIDE RECORDS SUMMARY | 2025-06-17 21:24 | XMS_ITS | Clinical Summary ---
Author Organization Patient Business Ser [facility] Address [address] [place] [address] Care Team Providers Care Marketing Operations Assistant Name Role Phone Johnny Aguilar NP Primary Care Provider Surgical History Surgery Date Site/Laterality Comments SECTION PROCEDURE: HISTORICAL DELIVERY TONSILLECTOMY ADENOIDECTOMY, BILATERAL MYRINGOTOMY AND TUBES PROCEDURE: [facility] TONSIL[facility] & ADENOIDECTOM[facility] <AGE 13 OTHER SURGICAL HISTORY 11/2022 PROCEDURE: HISTORY OTHER; COMMENT: bariatric surgery Medical History Medical History Date Comments Chlamydia contact, treated DX:Ch lamydia contact, treated Bipolar 1 disorder ([facility] V28) DX:Bipolar 1 disorder ([facility]) Learning disability DX:Learning disability Obese 12/26/2018 DX:Obese; [...] RESULTING AGENCY - 01/10/2024 12:45 PM EDT [id number]: THIS REPORT WAS AMENDED TO CORRECT THE [...] HX: NEG 2020, LMP 12/08/2023. Domitila Cast [facility] CYTOLOGY ORDERABLES Edite d Result - Final HISTORICAL TESTING LAB RESULTING AGENCY from Last 3 Months or Most Recently Relevant to Health Maintenance Insurance [facility] MEDICARE Member Subscriber Plan / Payer (Ef fective 2016-Present) Name:JOSSE CHRISTINA Relation to Subscriber:Self Name:Josse Luna Christina Sai Payer ID:[id number] Group ID:[id number] Type:Not on file Address: [facility] [address] [address] Care Teams Marketing Operations Assistant Relationship Specialty Start Date End Date Johnny Aguilar NP [address] [place], [place] PCP - General 07/27/16
--- NOTE | 2025-06-17 22:28 | PC.NURSE ---
Pt refusing IV fluids and Toradol. PA Keith aware.
[2025-06-17 22:43] VITALS: BP 150/78; PULSE 108; RESP 20; TEMP 36.7; O2SAT 99
--- NOTE | 2025-06-17 22:44 | PC.NURSE ---
Pt reports wanting to be discharged, LILA Parker aware. Pt educated on the importance of staying but pt was adament about going back home. Pt provided d/c papers.
[2025-06-17 22:45] VITALS: BP 150/78; PULSE 108; RESP 20; TEMP 36.7; O2SAT 99
== END 2025-06-17 22:45 | disposition home or self-care (01) ==
PROVIDERS: Physician Assistant Medical; Emergency Provider Emergency Medicine; PCP Nurse Practitioner Family
DX: K59.00 Constipation, unspecified (principal); R10.23 Pelvic and perineal pain bilateral; R11.0 Nausea; Z79.899 Other long term (current) drug therapy; Z98.84 Bariatric surgery status
CPT/HCPCS: 36415; 74018; 80053; 83690; 83735; 84702; 85025; 96361; 96374; 99284

== ENCOUNTER → 2025-06-17 19:31 | Outpatient (BNV) | payer OTHER, SELFPAY | PROVIDERS: Visit Provider Radiology Diagnostic Radiology | DX: R10.9 Unspecified abdominal pain (principal) | CPT/HCPCS: 74018 ==

== ENCOUNTER 2025-06-23 10:57 | Outpatient (AMB) | payer OTHER, SELFPAY ==
--- NOTE | 2025-06-23 11:16 | MHC.OFFVISWM ---
VS Expanded 06/23/25 11:17 BP 122/72 Blood Pressure Location Rt brachial Blood Pressure Position Sitting Pulse 100 Pulse Source Pulse Oximeter Temp 99.3 F Temperature Source Temporal Artery Scan Pulse Oximetry 100 Oxygen Delivery Method Room Air Height 5 ft 6 in Weight 140 lb BMI 22.6 Intake Visit Reasons: (OV) s/p Panniculectomy 06/10/25 Allergies mushroom Allergy (Severe, Verified 06/17/25 19:31) Anaphylaxis Medication List - Last Reconciled 06/23/25 by Brielle Gonzáles CNP albuterol sulfate 90 mcg/actuation 2 puffs inhalation Q4-6H PRN albuterol sulfate 2.5 mg (3 mL) inhalation QID PRN 90 days calcium carbonate 200 mg PO DAILY cane As directed cephalexin 500 mg PO Q12H cholecalciferol (vitamin D3) 125 mcg PO DAILY 90 days clotrimazole 1% 1 appl topical BID docusate sodium (Colace) 100 mg PO DAILY [Epi E-Z Pen PRN] ondansetron 4 mg PO Q12H polyethylene glycol 3350 (Miralax) 17 grams PO DAILY PRN sennosides (senna) 17.2 mg (2 x 8.6 mg) PO BEDTIME PRN tirzepatide (weight loss) (Zepbound) 10 mg (0.5 mL) subcut QWEEK vitamin B complex 1 tab PO DAILY 90 days zinc gluconate 30 mg PO DAILY HPI Comments Details: This is a 35 year old woman s/p panniculectomy 06/10/2025. s/p LSG 12/21/2022. VNA for dressing changes. Drain in place, she reports moderate sanguineous output. Emptying drain at 8pm every night, 25cc or less the last few days. Denies constitutional symptoms. Taking ABX as prescribed. Compliant with abd binder. Compliant with meal plan. Weighed self at home today and 140 lbs, feels she is losing too much weight. She feels she looks sick. She felt happiest at 167-170 lbs. Had constipation despite taking milk of mag and 2 enemas, and went to ER on 06/17/2025 and required digital impaction. Then took magnesium citrate and constipation resolved. Now taking colace and miralax daily and regular BMs. 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 [employer] [employer] Medical History (Updated 06/17/25 @ 22:34 by Keith Pradhan PA-C) Postoperative nausea Renal calculi Postgastrectomy malabsorption Anemia Physical exam Arthritis Asthma HTN (hypertension) Morbid obesity STI (sexually transmitted infection) Dysuria Dizziness Migraine with aura Hair loss Plantar fasciitis, bilateral Tendonitis of ankle, right Plantar fasciitis of right foot Right ankle pain Encounter for pre-employment examination Acute frontal sinusitis Asthma exacerbation Surgical History (Updated 06/16/25 @ 12:08 by LILA Hernandez) S/P laparoscopic sleeve gastrectomy (12/21/22) H/O colonoscopy History of ear surgery Hx of section History of surgery on lower extremity Family History Mother Stroke Hypertension Lupus Father Heart disease Brother Cancer Son No problems noted. Son No problems noted. Son No problems noted. Social History (Updated 05/26/25 @ 12:27 by Dayana Gill RN) Household Members: Family Household Members Other:: mom, kids Housing: Apartment Are you a primary manager wound care to a significant other at home: Yes (children) Do you presently have visiting nurse or other home services: No Alcohol intake: never Patient Tobacco Use Status: Current everyday Tobacco user Tobacco use type: Smokeless Tobacco Years Smoked: currently vaping-advised to refrain pre-op e-Cigarette/Vaping Use: Former Use Second Hand Smoke Exposure: No Substance Use Type: Unknown service: No Current occupational status: employed 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 Decreased sensation along panniculectomy incision. Dsg CDI. Steri strips in place. Panniculectomy incision and umbilicus healing well, no redness, swelling, warmth, drainage, or signs of infection. 2 scabs on umbilicus incision. AARON drain with moderate serosanguinous output in bulb. Neuro General: patient oriented x3 Assessment & Plan Assessment & Plan (1) S/P panniculectomy: Code(s): Z98.890 - Other specified postprocedural states Category: Surgical Plan: Plan: - Continue high protein diet. This will opitimize healing. Once healed, we can discuss a less strict diet. She would like to gain a little weight back for a goal of 167-170 lbs, BMI around 27, which would place her in the overweight category. - Continue ABX keflex 500 BID - Drain can be removed once output is consistently 20 mL or less daily for several days. - Abdominal binder at all times except for care x1 month MINIMUM. Longer if there are concerns.? - No walking outside or exercise for 6 weeks minimum. Walking in the house after 1st appt if we are satisfied with progress. Assistance getting up for 4 weeks minimum. No lifting greater than 10 pounds x 2 months and no abdominal exercises x 3 months. - No driving until after drain removal. Follow up: 1 week, as scheduled
[2025-06-23 11:17] VITALS: BP 122/72; PULSE 100; TEMP 37.4; O2SAT 100; BMI 22.6
--- OUTSIDE RECORDS SUMMARY | 2025-06-23 12:35 | XMS_ITS | Clinical Summary ---
Author Organization Patient Business Ser [facility] Address [address] [place] [address] Care Team Providers Care Casting Tester Name Role Phone Johnny Aguilar NP Primary Care Provider Surgical History Surgery Date Site/Laterality Comments SECTION PROCEDURE: HISTORICAL DELIVERY TONSILLECTOMY ADENOIDECTOMY, BILATERAL MYRINGOTOMY AND TUBES PROCEDURE: [place] TONSILLECTOMY & ADENOIDECTOMY <AGE 13 OTHER SURGICAL HISTORY 11/2022 PROCEDURE: HISTORY OTHER; COMMENT: bariatric surgery Medical History Medical History Date Comments Chlamydia contact, treated DX:Ch lamydia contact, treated Bipolar 1 disorder ([facility] V24, [facility] V28) DX:Bipolar 1 disorder ([facility]) Learning disability DX:Learning disability Obese [...] RESULTING AGENCY - 01/10/2024 12:45 PM EDT [id number]: THIS REPORT WAS AMENDED TO CORRECT THE [...] HX: NEG 2020, LMP 12/08/2023. Domitila Cast [facility] CYTOLOGY ORDERABLES Edite d Result - Final HISTORICAL TESTING LAB RESULTING AGENCY from Last 3 Months or Most Recently Relevant to Health Maintenance Insurance [facility] MEDICARE Member Subscriber Plan / Payer (Ef fective 2016-Present) Name:JOSSE CHRISTINA Relation to Subscriber:Self Name:Josse Luna Christina Sai Payer ID:[id number] Group ID:[id number] Type:Not on file Address: [facility] [address] [address] Care Teams Casting Tester Relationship Specialty Start Date End Date Johnny Aguilar NP [address] [place], [place] PCP - General 07/27/16
--- OUTSIDE RECORDS SUMMARY | 2025-06-23 12:35 | XMS_ITS | Patient Health Record ---
Author Organization [facility] Address [address] [place] [address] Care Team Providers Care Framing Mill Supervisor Name Role Phone YSABEL FRANKS Primary Care [...] W/U Status Risk Notes Problem Rectal bleeding ([id number]) Rectal bleeding (K62.5) Active confirmed Plan Of Treatment Future Test Test Name Order Date COLONOSCOPY 10/06/2015 Insurance Providers Payer Name Payer Address Payer Phone Subscriber Number Group Number Insured Name Patient Relationship to Insured Coverage Start Date Coverage End Date MEDICARE OF [place] [address] [place] [id number] [phone] [id number] CHIDI CEJA Self - patient is the insured MEDICAID OF [facility] [address] [place] [phone] [id number] CHIDI CEJA Self - patient is the insured Medical (General) History Medical History History ICD Code hypertension anxiety/depression asthma Surgical History Surgery Date(Month/Year) section 2006,2011 broken leg right 2011
== END 2025-06-23 11:46 | disposition home or self-care (01) ==
LOC: HO.HBS 10:57
PROVIDERS: PCP Nurse Practitioner Family; Visit Provider Nurse Practitioner
DX: Z71.3 Dietary counseling and surveillance (principal); Z98.890 Other specified postprocedural states
CPT/HCPCS: 99024

== ENCOUNTER → 2025-06-23 10:57 | Outpatient (BNVA) | payer OTHER, SELFPAY | PROVIDERS: PCP Nurse Practitioner Family; Visit Provider Nurse Practitioner | DX: Z48.815 Encounter for surgical aftercare following surgery on the digestive system (principal); Z98.890 Other specified postprocedural states; Z98.84 Bariatric surgery status | CPT/HCPCS: 99212 ==